=== PATIENT | male | born 1925 | race Caucasian/White ===

== ENCOUNTER 2016-12-05 17:47 | Inpatient (IN) | payer MEDICARE, OTHER ==
[~2016-12-05] VITALS: Ht 185.4 cm; Wt 81.3 kg
[~2016-12-05 17:47] MED LIST: ACET325T51 PO; ALBU2.5V2 AEROSOL; ASPI-557 PO; ATOR40TA64 PO; CALC600T20 PO; CLOP75TA33 PO; CYAN10009 PO; ESCI10TA PO; FURO20TA4 PO; INSU100V12 SQ; INSU100V13 SQ; LORA0.5T86 PO; LOSA25TA34 PO; METO100T5 PO; NUT.237L33 PO; OMEP10SU2 PO; POTA10CA37 PO; PROP10DR2 BOTH EYES; SALI10004 PO; SODI30SP3 EA NOSTRIL
--- OUTSIDE RECORDS SUMMARY | 2016-12-05 17:50 | XMS REPORT | Referral Summary ---
Author Author [facility] Organization [facility] Address Unknown Phone Unavailable Care Team Providers Care Center Rep Name Role Phone Dulce Maria Almaguer Primary Care Physician [phone] Encounter VC Date(s): 06/22/16 - 07/04/16 [facility] [address] [place] [address] Discharge Disposition: 03-Retirement Facility Attending Physician: Dewayne Anderson MD Admitting Physician: Susie Lovett MD Vital Signs Most recent to 1 oldest [Reference Range]: Temperature Oral 37.0 degC [35.8-37.3 degC] (07/04/16 11:15 AM) Temperature Rectal 37.4 degC [36.3-37.8 degC] (06/22/16 7:50 PM) Temperature Temporal 36.9 degC Artery [36.3-37.8 (07/01/16 8:00 AM) degC] Peripheral Pulse 84 bpm Rate [60-100 bpm] (07/04/16 11:15 AM) Peripheral Pulse 93 bpm Rate with Activity (07/01/16 8:42 AM) Heart Rate Monitored 76 bpm [60-100 bpm] (07/04/16 9:47 AM) Respiratory Rate 20 br/min [14-20 br/min] (07/04/16 11:15 AM) Blood Pressure 112/66 mmHg [90-140/60-90 mmHg] (07/04/16 11:15 AM) Systolic Blood 148 mmHg Pressure with (07/01/16 8:42 AM) Activity Diastolic Blood 86 mmHg Pressure with (07/01/16 8:42 AM) Activity Mean Arterial 103 mmHg Pressure, Cuff (07/01/16 10:00 AM) Pulse Rate [60-100 80 bpm bpm] (07/03/16 8:51 AM) SpO2 94 % (07/04/16 11:15 AM) Remote Telemetry Ongoing (07/04/16 8:00 AM) Problem List Condition Effective Dates Status Health Status Informant Acute Active pain(Confirmed) Alteration in Active nutrition(Confirmed) 1 At risk for Active falls(Confirmed)2 At risk for Active injury(Confirmed)3 At risk of pressure Active sore(Confirmed) Diabetes Active mellitus(Confirmed) Fluid Active imbalance(Confirmed) 4 Hearing Active loss(Confirmed) Hyperlipidemia(Confi Active rmed) Hypertension(Confirm Active ed) Impaired skin Active integrity(Confirmed) 5 Cataracts(Confirmed) Active Pneumonia(Confirmed) Active Scarlet Active fever(Confirmed) Tissue perfusion Active alteration(Confirmed )6 1Problem added automatically by system based on initiation of Alteration in Nutrition Plan of Care 2This problem was added by Discern Expert. 3Problem added automatically by system based on initiation of Risk for Injury Plan of Care 4Problem added automatically by system based on initiation of Fluid Volume Imbalance Plan of Care 5Problem added automatically by system based on initiation of Impaired Skin Integrity Plan of Care 6Problem added automatically by system based on initiation of Tissue Perfusion Cerebral Plan of Care Allergies, Adverse Reactions, Alerts No Known Medication Allergies Medications acetaminophen 325 mg oral tablet 650 mg 2 tabs, Oral, q4hr, Pain Mild (1-3), 0 Refill(s) Start Date: 07/04/16 Status: Ordered albuterol 5 mg/mL (0.5%) inhalation solution 2.5 mg 0.5 mL, NEB, BID, 0 Refill(s) Start Date: 07/04/16 Status: Ordered atorvastatin 40 mg oral tablet 40 mg 1 tabs, Oral, Bedtime (once a day), 0 Refill(s) Start Date: 07/04/16 Status: Ordered Caltrate 600+D oral tablet, chewable 1 tabs, Chewed, Daily Start Date: 03/04/16 Status: Ordered Levemir 100 units/mL subcutaneous solution 12 units, SubCutaneous, Bedtime (once a day), 0 Refill(s) Start Date: 07/04/16 Status: Ordered losartan 25 mg oral tablet 25 mg 1 tabs, Oral, Daily, 0 Refill(s) Start Date: 07/04/16 Status: Ordered metoprolol tartrate 100 mg oral tablet 100 mg 1 tabs, Oral, BID, 0 Refill(s) Start Date: 07/04/16 Status: Ordered NovoLOG 100 units/mL subcutaneous solution 5 units, SubCutaneous, TIDWM, 0 Refill(s) Start Date: 07/04/16 Status: Ordered omeprazole 2 mg/mL oral suspension 20 mg 10 mL, Oral, Daily, 0 Refill(s) Start Date: 07/04/16 Status: Ordered Plavix 75 mg oral tablet 75 mg 1 tabs, Oral, Daily, # 30 tabs, 0 Refill(s), other reason (Rx) Start Date: 07/04/16 Status: Ordered potassium chloride 20 mEq oral tablet, extended release 40 mEq, Oral, BID, 0 Refill(s) Start Date: 07/04/16 Status: Ordered Vitamin B12 1000 mcg oral tablet 1,000 mcg 1 tabs, Oral, qMonth Start Date: 03/04/16 Status: Ordered Results Blood Gases Most recent to 1 oldest [Reference Range]: pH [7.35-7.45] 7.27 *LOW* (06/22/16 11:46 PM) pCO2 Art [35-45 19 mmHg mmHg] *LLOW* (06/22/16 11:46 PM) Bicarbonate [22-26 9 mEq/L mEq/L] *LOW* (06/22/16 11:46 PM) Base Excess Art -16 [0-2] *LOW* (06/22/16 11:46 PM) O2 Sat Art 92.0 % [90.0-97.0 %] (06/22/16 11:46 PM) pO2 Art [80-100 77 mmHg mmHg] *LOW* (06/22/16 11:46 PM) LPM Art 2.0 L/min (06/22/16 11:46 PM) O2 Panel Nasal Cannula (06/22/16 11:46 PM) Spec Site Radial-R (06/22/16 11:46 PM) Hematology Most recent to 1 oldest [Reference Range]: WBC [4.8-10.8 12.7 10*3/uL 10*3/uL] *HI* (07/03/16 5:20 AM) RBC [4.60-6.20] 4.26 *LOW* (07/03/16 5:20 AM) Hgb [14.0-18.0 11.9 gm/dL gm/dL] *LOW* (07/03/16 5:20 AM) Hct [42.0-52.0 %] 38.0 % *LOW* (07/03/16 5:20 AM) MCV [82.0-99.0 fL] 89.2 fL (07/03/16 5:20 AM) MCH [27.0-32.0 pg] 27.9 pg (07/03/16 5:20 AM) MCHC [32.0-36.0 31.3 gm/dL gm/dL] *LOW* (07/03/16 5:20 AM) RDW [11.5-14.5 %] 16.6 % *HI* (07/03/16 5:20 AM) Platelet [150-400 202 10*3/uL 10*3/uL] (07/03/16 5:20 AM) MPV [9.4-12.3 fL] 11.4 fL (07/03/16 5:20 AM) Immature 0.6 % Granulocytes (06/25/16 5:25 AM) [0.0-1.0 %] Neutrophils [51-75 78 % %] *HI* (06/25/16 5:25 AM) Band Man [0-8 %] 9 % *HI* (06/23/16 3:25 AM) Lymphocytes [20-46 12 % %] *LOW* (06/25/16 5:25 AM) Monocytes [4-11 %] 9 % (06/25/16 5:25 AM) Eosinophils [0-4 %] 0 % (06/25/16 5:25 AM) Basophils [0-2 %] 0 % (06/25/16 5:25 AM) Neutro Absolute 9.54 10*3 [1.90-7.00 10*3] *HI* (06/25/16 5:25 AM) Lymph Absolute 1.48 10*3 [0.80-3.30 10*3] (06/25/16 5:25 AM) Sweet Grass Absolute 1.10 10*3 [0.30-1.00 10*3] *HI* (06/25/16 5:25 AM) Eos Absolute 0.02 10*3 [0.00-0.50 10*3] (06/25/16 5:25 AM) Baso Absolute 0.01 10*3 [0.00-0.20 10*3] (06/25/16 5:25 AM) Toxic Gran Occasional *ABN* (06/23/16 3:25 AM) Toño Cell Occasional *ABN* (06/22/16 8:10 PM) Nucleated RBC 0.0 /100 WBC Automated [0 /100 (06/25/16 5:25 AM) WBC] Differential Reviewed (06/23/16 3:25 AM) Coagulation Most recent to 1 oldest [Reference Range]: INR [0.9-1.2] 1.0 (06/25/16 8:09 AM) PTT [25.0-35.0 24.7 seconds seconds] *LOW* (06/27/16 3:19 AM) Chemistry Most recent to 1 oldest [Reference Range]: Sodium Lvl [136-144 138 mEq/L mEq/L] (07/03/16 5:20 AM) Potassium Lvl 4.3 mEq/L [3.6-5.1 mEq/L] (07/03/16 5:20 AM) Chloride [99-109 108 mEq/L mEq/L] (07/03/16 5:20 AM) CO2 [22-32 mEq/L] 26 mEq/L (07/03/16 5:20 AM) AGAP [3-20] 4 (07/03/16 5:20 AM) BUN [4-20 mg/dL] 14 mg/dL (07/03/16 5:20 AM) Glucose Lvl [70-100 152 mg/dL mg/dL] *HI* (07/03/16 5:20 AM) Creatinine Lvl 0.94 mg/dL [0.64-1.27 mg/dL] (07/03/16 5:20 AM) eGFR [>60] >60 1 (07/03/16 5:20 AM) Calcium Lvl 8.0 mg/dL [8.6-10.0 mg/dL] *LOW* (07/03/16 5:20 AM) Albumin Lvl [3.5-4.8 2.2 gm/dL gm/dL] *LOW* (07/01/16 3:39 AM) Total Protein 5.1 gm/dL [6.1-7.9 gm/dL] *LOW* (06/23/16 3:25 AM) Globulin [1.9-4.3 2.3 gm/dL gm/dL] (06/23/16 3:25 AM) ALT [17-63 U/L] 20 U/L (06/23/16 3:25 AM) AST [15-41 U/L] 80 U/L *HI* (06/23/16 3:25 AM) Alk Phos [26-104 42 U/L U/L] (06/23/16 3:25 AM) Bili Total [0.2-1.2 1.4 mg/dL 2 mg/dL] *HI* (06/23/16 3:25 AM) Magnesium Lvl 1.9 mg/dL [1.8-2.5 mg/dL] (07/01/16 3:39 AM) Phosphorus [2.4-4.7 3.0 mg/dL 3 mg/dL] (07/01/16 3:39 AM) Total CK [49-397 291 U/L U/L] (06/22/16 8:10 PM) BNP [0-99 pg/mL] 509 pg/mL *HI* (06/28/16 4:19 AM) Troponin [<0.06 1.21 ng/mL 4 ng/mL] *HHI* (06/28/16 4:19 AM) Lactic Acid Lvl 1.4 mEq/L [0.5-2.2 mEq/L] (06/25/16 5:25 AM) Sodium Venous 135 mEq/L [136-144 mEq/L] *LOW* (06/22/16 8:04 PM) Potassium Venous 5.4 mEq/L 5 [3.6-5.1 mEq/L] *HI* (06/22/16 8:04 PM) Calcium Ionized 1.10 mmol/L Venous [1.19-1.41 *LOW* mmol/L] (06/22/16 8:04 PM) Total CO2 Venous 9 mEq/L [25-29 mEq/L] *LOW* (06/22/16 8:04 PM) HGB Venous NPT 13.3 gm/dL [14.0-16.0 gm/dL] *LOW* (06/22/16 8:04 PM) HCT Venous 39.0 % [42.0-52.0 %] *LOW* (06/22/16 8:04 PM) Glucose Venous >700 mg/dL [70-100 mg/dL] *HHI* (06/22/16 8:04 PM) BUN Venous [4-20] 35 *HI* (06/22/16 8:04 PM) Creatinine Venous 1.4 mg/dL [0.7-1.2 mg/dL] *HI* (06/22/16 8:04 PM) Venous CL [99-109 104 mEq/L mEq/L] (06/22/16 8:04 PM) Anion Gap, Hugo 22 [3-20] *HI* (06/22/16 8:04 PM) Blood Glucose, 151 mg/dL Capillary [70-100 *HI* mg/dL] (07/04/16 11:09 AM) Blood Glucose, Low Capillary Out of (07/01/16 5:07 AM) Range Chol [0-200 mg/dL] 136 mg/dL (06/23/16 3:25 AM) Trig [0-150 mg/dL] 75 mg/dL (06/23/16 3:25 AM) HDL [>40 mg/dL] 35 mg/dL *ABN* (06/23/16 3:25 AM) LDL [0-100 mg/dL] 86 mg/dL (06/23/16 3:25 AM) VLDL Cholesterol 15 mg/dL [0-30 mg/dL] (06/23/16 3:25 AM) Cardiac Risk 3.9 [0.0-5.7] (06/23/16 3:25 AM) Procalcitonin 5.35 ng/mL 6 [0.00-0.09 ng/mL] *HI* (06/23/16 12:27 AM) 1Result Comment: Multiply eGFR results by 1.21 for race. 2Result Comment: Naproxen, specifically the metabolite O-desmethylnaproxen, may cause spurious elevation in Total Bilirubin levels. 3Result Comment: High dosages of liposomal Amphotericin B (AmBisome) therapy or other drug preparations that use a liposomal envelope to facilitate drug delivery may cause falsely elevated results for phosphorus. 4Result Comment: Critical value called, and read-back verified. Called to Leigha Bermeo RN ([facility]) 06/28/2016 08:20 5Result Comment: This test was performed on a whole blood specimen. The presence or absence of hemolysis cannot be assessed. Hemolysis can falsely elevate potassium levels. Normals are for venous specimens only. 6Result Comment: Normal: <0.1 ng/mL (infants >72 hrs - adults) Suspected Lower Respiratory Tract Infection 0.10-0.25 ng/mL=Low likelihood for bacterial infection; Antibiotics discouraged. >0.25 ng/mL=Increased likelihood for bacterial infection; Antibiotics encouraged. Suspected Sepsis: Strongly consider initiating antibiotics in all unstable patients. 0.10-0.50 ng/mL=Low likelihood for sepsis; Antibiotics discouraged. >0.50 ng/mL=Increased likelihood for sepsis; Antibiotics encouraged. Decisions on antibiotic use should not be based solely on procalcitonin levels. If antibiotics are administered, repeat procalcitonin testing should be obtained every 2-3 days to consider early antibiotic cessation. PCT is a dynamic biomarker and most useful when trends are analyzed over time in accompaniment with other clinical data. Interpretation should be based upon clinical context and algorithms. Urinalysis Most recent to 1 oldest [Reference Range]: UA Color Straw (06/22/16 8:10 PM) UA Appear Clear (06/22/16 8:10 PM) UA pH [5.0-8.0] 5.0 (06/22/16 8:10 PM) UA Leuk Est Negative [Negative] (06/22/16 8:10 PM) UA Nitrite Negative [Negative] (06/22/16 8:10 PM) UA Protein Negative [Negative] (06/22/16 8:10 PM) UA Glucose Pos 3+ [Negative] *ABN* (06/22/16 8:10 PM) UA Ketones Pos 2+ [Negative] *ABN* (06/22/16 8:10 PM) UA Urobilinogen Negative [<1.0] (06/22/16 8:10 PM) UA Bili [Negative] Negative (06/22/16 8:10 PM) UA Blood [Negative] Negative (06/22/16 8:10 PM) UA Spec Grav 1.020 [1.003-1.030] (06/22/16 8:10 PM) Type Clean Catch (06/22/16 8:10 PM) Microbiology Reports TEST: Respiratory Virus Panel - PCR STATUS: Auth (Verified) BODY SITE: SOURCE: Nasopharyngeal Swab COLLECTED DATE/TIME: 06/22/16 11:21 PM Respiratory Virus Panel - PCR Negative for all strains tested. . Specimen tested for the following FDA approved viral targets: Influenza A, Influenza A subtype H1, Influenza A subtype H3, Influenza A 2009 H1N1, Influenza B, Respiratory Syncytial Virus subtype A, Respiratory Syncytial Virus subtype B, Adenovirus B/E, Adenovirus C, Rhinovirus, Parainfluenza virus 1, Parainfluenza virus 2, Parainfluenza virus 3, and Human Metapneumovirus. . The following viral targets were also tested. Although not FDA approved, these targets have been validated by our laboratory for clinical diagnosis: Parainfluenza virus 4, Coronavirus 229E, Coronavirus NL63, Coronavirus HKU1, and Coronavirus OC43. TEST: Blood Culture STATUS: Auth (Verified) BODY SITE: SOURCE: Blood COLLECTED DATE/TIME: 06/22/16 8:10 PM Blood Culture No growth after 5 days of incubation. TEST: Blood Culture STATUS: Auth (Verified) BODY SITE: SOURCE: Blood COLLECTED DATE/TIME: 06/22/16 8:10 PM Blood Culture No growth after 5 days of incubation. Immunizations No data available for this section Procedures Procedure Date Related Diagnosis Body Site Catheterization Left Heart with Coronary 06/30/16 Angiography (Right, Groin)1 Insertion of peripherally inserted central 06/23/16 venous catheter (PICC), without subcutaneous port or pump; age 5 years or older.. Arterial puncture, withdrawal of blood for 06/22/16 diagnosis Brain Surgery Cataract, left Cataract, right Hernia Prostate Surgery Tonsillectomy 1auto-populated from documented surgical case Social History Social History Type Response Smoking Status Former smoker; Type: Cigarettes Assessment and Plan No data available for this section
--- OUTSIDE RECORDS SUMMARY | 2016-12-05 17:50 | XMS REPORT | Continuity of Care Document ---
Author Author [facility] Organization [facility] Address Unknown Phone Unavailable Allergies Medications Problems Procedures Results Encounters ACCT No. Visit Date/Time Discharge Status Pt. Type Provider Facility Loc./Unit Complaint [id number] 08/03/2013 13:41:00 08/03/2013 23 :59:59 CLS Outpatient
--- OUTSIDE RECORDS SUMMARY | 2016-12-05 17:51 | XMS REPORT | Continuity of Care Document ---
Author Author [facility] Organization [facility] Address Unknown Phone Unavailable Support Name Relationship Address Phone JACQUI KOTHARI DO Caregiver [address] [place] [address] Unavailable ANGELA GALLARDO MD Caregiver [address] [place] [address] Unavailable JACKSON CUMMINGS DO Caregiver [address] [place] [address] Unavailable JACKSON CUMMINGS DO Caregiver [address] [place] [address] Unavailable RHEA FELIZ Next Of Kin [address] [place], [place] [id number] Insurance Providers Guarantor Ronald Rollins Address [address] [place] [address] Email DENIED 16 Payer Medicare Policy Number [id number] Subscriber's Name Ronald Rollins Relationship 18 Self Payer [facility] Policy Number [id number] Subscriber's Name Ronald Rollins Relationship 18 Self Group Number [id number] Advance Directives Directive Response Recorded Date/Time Advanced Directives Type DNR Documentation Living Will DPOA for Healthcare 09/21/16 10:33am Ordered Resuscitation Status Full Code 09/21/16 12:41pm Resuscitation Documents on File Yes 09/21/16 1:44pm DPOA for Healthcare Only Y SON-NAVIN RIA/DAUGHTERS-LYNSEY MAYNARD AND RHEA FELIZ 09/21/16 1:44pm Chief Complaint and Reason for Visit Chief Complaint HYPOXEMIA Reason for Visit Congestive heart failure Depression Hypernatremia Hypoxia memory loss Hypoglycemia LLL pneumonia Problems Active Problems Medical Problem Onset Date Status ASCVD (arteriosclerotic cardiovascular disease) Unknown Chronic Acute L1 fracture Unknown Acute Acute respiratory insufficiency Unknown Resolved Bilateral pleural effusion Unknown Acute Cardiac murmur Unknown Acute Cardiac murmur, previously undiagnosed Unknown Acute Congestive heart failure Unknown Acute Constipation Unknown Resolved Depressed Unknown Acute Depression Unknown Chronic Diabetic gastroparesis Unknown Chronic HTN (hypertension) Unknown Chronic Hypernatremia Unknown Chronic Hypoxia Unknown Resolved Inability to care for self Unknown Acute Intractable back pain Unknown Acute Osteoarthritis Unknown Chronic Pneumonia Unknown Acute Sepsis Unknown Acute Suspected pulmonary embolism Unknown Acute Tachycardia Unknown Acute Type II diabetes mellitus Unknown Chronic Type II diabetes mellitus, uncontrolled Unknown Acute memory loss Unknown Acute mild dehydration Unknown Acute Past Problems Medical Problem Onset Date Acute anterior epistaxis Unknown Hypoglycemia Unknown LLL pneumonia Unknown Medications Current Home Medications Medication Dose Units Route Directions Days Qty Instructions Start Date Acetaminophen 325 Mg Tablet 650 Mg Oral Every 4 Hours as needed for Pain 09/21/16 Albuterol Sulfate 2.5 Mg/0.5 Ml Vial.neb 2.5 Mg Aerosol Tx. Resp.tx Q4h While Awake 100 Vial 09/11/16 Aspirin (Aspir 81) 81 Mg Tablet.dr 81 Mg Oral Daily 08/25/16 Atorvastatin Calcium 40 Mg Tablet 40 Mg Oral Bedtime 08/25/16 Calcium Carbonate 600 Mg Tablet 600 Mg Oral Daily 08/25/16 Clopidogrel Bisulfate (Clopidogrel) 75 Mg Tablet 75 Mg Oral Daily 08/25/16 Cyanocobalamin (Vitamin B-12) (Vitamin B-12) 1,000 Mcg Tablet 1,000 Mcg Oral 1 Month 09/10/16 Escitalopram Oxalate (Lexapro) 10 Mg Tablet 10 Mg Oral Daily 10/15 Furosemide 20 Mg Tablet 1 Tab Oral Daily 30 Days 30 Tablet 09/25/16 Insulin Aspart (Novolog) 100 Unit/Ml Inj 11 Unit Sub-Q Give With Lunch 09/21/16 Insulin Aspart (Novolog) 100 Unit/Ml Inj 10 Unit Sub-Q Give With Supper 09/21/16 Insulin Aspart (Novolog) 100 Unit/Ml Inj 22 Unit Sub-Q Give With Breakfast 09/21/16 Insulin Detemir (Levemir) 100 Unit/Ml Inj 13 Unit Sub-Q Bedtime 09/21/16 Lorazepam (Ativan) 0.5 Mg Tablet 0.5 Mg Oral Every 6 Hours as needed for Anxiety/Agitation 09/21/16 Losartan Potassium 25 Mg Tablet 25 Mg Oral Daily 09/10/16 Metoprolol Tartrate 100 Mg Tablet 100 Mg Oral Twice A Day Nut.tx.gluc.intoler,Lac-Fr,Soy (Glucerna) 237 Ml Liquid 237 Ml Oral Twice A Day 09/21/16 Omeprazole Magnesium (Prilosec) 10 Mg Suspdr.pkt 20 Mg Oral Daily 09/21/16 Potassium Chloride 10 Meq Capsule.er 10 Meq Oral Give With Breakfast 30 Days 30 Capsule Take 1 capsule, by mouth, daily with breakfast 09/25/16 Propylene Glycol/Peg 400 (Systane Ultra 0.4-0.3% Eye Drp) 10 Ml Drops 1 Drop Both Eyes Twice A Day 09/21/16 Propylene Glycol/Peg 400 (Systane Ultra 0.4-0.3% Eye Drp) 10 Ml Drops 1 Drop Both Eyes As Needed as needed for Dry Eyes 09/21/16 Saliva Substitution Combo No.9 (Biotene) 1,000 Ml Mouthwash 15 Ml Oral Twice A Day 09/21/16 Sodium Chloride (Saline Nasal [place]) 30 Ml [place] 1-2 [place] Each Nostril Twice A Day 09/21/16 Sodium Chloride (Saline Nasal [place]) 30 Ml [place] 1-2 [place] Each Nostril As Needed 09/21/16 Past Home Medications Medication Directions Ordered Status Acetaminophen/Dp-Hydram Hcl (Tylenol P.m. Ex-Str Caplet) 1 Tab Tablet, 1 Tab Oral Bedtime 11/09/12 Discontinued Advil , 200 Mg Oral As Needed 11/08/12 Discontinued Felodipine (Felodipine Er) 10 Mg Tab.sr.24h, 10 Mg Oral D 11/09/12 Discontinued Felodipine , 11/08/12 Discontinued Fexofenadine , 11/08/12 Discontinued Fexofenadine Hcl 180 Mg Tablet, 180 Mg Oral Daily 11/09/12 Discontinued Flonase , 11/08/12 Discontinued Fluticasone Propionate (Flonase) 16 Gm [place].susp, 16 Gm Nasal Daily Discontinued Hydrochlorothiazide , 11/08/12 Discontinued Ipratropium/Albuterol Sulfate (Iprat-Albut 0.5-3(2.5) Mg/3 Ml) 3 Ml Solution, 3 Ml Aerosol Tx. Four Times Daily for Wheeze 01/04/15 Discontinued Kdur , 11/08/12 Discontinued Levofloxacin (Levaquin) 500 Mg Tablet, 500 Mg Oral Daily 01/04/15 Discontinued Losartan , 11/08/12 Discontinued Losartan Potassium 100 Mg Tablet, 100 Mg Oral Daily 11/09/12 Discontinued Metoprolol Tartrate , 11/08/12 Discontinued Novolog , 130 Unit Every 3 Days [facility] 11/08/12 Discontinued Potassium Chloride 20 Meq Tab.er.prt, 40 Mg Oral Twice A Day 09/21/16 Discontinued Reclast , 11/08/12 Discontinued Sennosides (Senna) 8.6 Mg Tablet, 8.6 Mg Oral Twice A Day as needed for Constipation 12/30/14 Discontinued Simvastatin 20 Mg Tablet, 20 Mg Oral Daily 11/09/12 Discontinued Simvastatin , 11/08/12 Discontinued Sinex , 11/08/12 Discontinued Tylenol Pm , 11/08/12 Discontinued Vitamin B-12 , 11/08/12 Discontinued Zocor , 11/08/12 Discontinued Social History Social History Problem Response Recorded Date/Time Onset Date Status Reason for Hospitalization hypoxemia 09/25/2016 2:15pm Not Applicable Not Applicable Chewing Tobacco Status No 08/30/2013 4:10pm Not Applicable Not Applicable Hx Substance Use No 09/21/2016 10:44am Not Applicable Not Applicable Hx Alcohol Use No 09/21/2016 10:44am Not Applicable Not Applicable Has the pt used tobacco in the last 12 months No 09/21/2016 2:15pm Not Applicable Not Applicable Tobacco Usage none 12/30/2014 4:41pm Not Applicable Not Applicable Query Response Start Date Stop Date Smoking Status Former smoker Hospital Discharge Instructions Instructions: Care Instructions: Reason for Hospitalization: hypoxemia I was in the hospital because (patient own words): "they said I had pneumonia" Discharge Diet: Diabetic appropriate Discharge Activity: as tolerated Follow Up Appointments: 10-14 days at [facility] with Rosina Rogers Pending Lab / Results: No Pending Lab Wound/Incision Care: N/A Pain Management/Treatment: N/A Expected Signs/Symptoms: shortness of breath Notify Physician If: condition worsens During Business Hours:: Please call the physician's office at [phone] After Business Hours:: Please call [phone] and have the pusher operator page the physician. Condition at time of discharge: Good Plan of Care Discharge Date 09/25/16 2:52pm Disposition 03 TO SN[facility] NOT [facility] (SNF) Instructions/Education Provided Hypoxemia (GEN) Prescriptions See Medication Section Care Plan and Goals See Discharge Instructions Section Functional Status Query Response Date Recorded Mobility Status Ambulatory w/assist September 25, 2016 2:15pm Assistive Devices Front Wheeled Walker September 25, 2016 2:15pm Activity Limitations Weakness Shortness of breath September 25, 2016 2:15pm Feeding Ability Independent September 25, 2016 2:15pm Toileting Ability Assist September 25, 2016 2:15pm Grooming Ability Assist September 25, 2016 2:15pm Dressing Ability Assist September 25, 2016 2:15pm Driving Ability Dependent September 25, 2016 2:15pm Housework Ability Dependent September 25, 2016 2:15pm Meal Preparation Ability Dependent September 25, 2016 2:15pm Stair Climbing Ability Dependent September 25, 2016 2:15pm Ability to complete ADL's impeded by No change September 25, 2016 2:15pm Cognitive/Perceptual Impairments Impaired hearing Chronic confusion September 25, 2016 2:15pm Visual Assistive Devices Glasses September 24, 2016 10:00pm Hearing Assistive Devices Left hearing aid Right hearing aid With patient September 24, 2016 10:00pm Allergies, Adverse Reactions, Alerts Allergen Type Severity Reaction Status Last Updated No Known Drug Allergies Allergy Unknown Active 09/21/16 Immunizations Query Response on File Recorded Date/Time Hx Influenza Vaccination Y 07/08/16 09/21/16 2:15pm Hx Pneumococcal Vaccination Y 07/08/16 09/21/16 2:15pm Hx Influenza Vaccination Y 07/08/16 09/21/16 2:15pm Influenza Vaccine Hx 07/08/16 09/21/16 7:49pm Vital Signs Acute Vital Signs Vital Response Date/Time Temperature (Fahrenheit) 98.1 deg F (96.8 - 99.1) 09/25/2016 11:36am Temperature (Calculated Celsius) 36.52929 degrees C (36.0 - 37.3) 09/25/2016 11:36am Pulse Rate (adult) 91 bpm (60 - 100) 09/25/2016 11:36am Respiratory Rate 20 breaths/min (10 - 20) 09/25/2016 11:36am O2 Sat by Pulse Oximetry 96 % (90 - 100) 09/25/2016 11:36am Oxygen Delivery Method Nasal Cannula 09/24/2016 5:22pm Oxygen Delivery Method Room Air 09/25/2016 11:36am Oxygen Flow Rate 0.50 L/min 09/25/2016 11:36am Blood Pressure 140/76 mm Hg 09/25/2016 11:36am Blood Pressure Source Automatic Cuff 09/25/2016 11:36am Height (Feet) 6 feet 09/24/2016 6:03pm Height (Inches) 1.00 inches 09/24/2016 6:03pm Weight (Kilograms) 78.000 kg 09/25/2016 7:50am Body Mass Index (BMI) 24.9 09/21/2016 1:41pm Results Laboratory Results Test Name Result Units Flags Reference Collection Date/Time Result Date/ Time Comments Urine Collection Type VOIDED-NOT CC-MIDSTR 07/07/2016 6:30pm 2015 8:50pm Urine Color YELLOW YELLOW 07/07/2016 6:30pm 07/07/2016 8:50pm Urine Turbidity SL CLOUDY CLEAR 07/07/2016 6:30pm 07/07/2016 8:50pm Urine Specific [place] >=1.030 H 1.015-1.025 07/07/2016 6:30pm 2015 8:50pm Urine pH 6.0 5.0-8.0 07/07/2016 6:30pm 07/07/2016 8:50pm Urine Leukocyte Esterase TRACE A NEGATIVE 07/07/2016 6:30pm 2015 8:50pm Urine Nitrite NEGATIVE NEGATIVE 07/07/2016 6:30pm 07/07/2016 8:50pm Urine Protein 1+ A NEGATIVE 07/07/2016 6:30pm 07/07/2016 8:50pm Urine Glucose (UA) 2+ A NEGATIVE 07/07/2016 6:30pm 07/07/2016 8:50pm Urine Ketones 1+ A NEGATIVE 07/07/2016 6:30pm 07/07/2016 8:50pm Urine Urobilinogen 0.2 EU/DL NORMAL 07/07/2016 6:30pm 07/07/2016 8: 50pm Urine Bilirubin NEGATIVE NEGATIVE 07/07/2016 6:30pm 07/07/2016 8: 50pm Urine Blood 2+ A NEGATIVE 07/07/2016 6:30pm 07/07/2016 8:50pm Urine WBC 10-20 /HPF H 0-5 07/07/2016 6:30pm 07/07/2016 9:08pm Urine RBC 3-5 /HPF H 0-3 07/07/2016 6:30pm 07/07/2016 9:08pm Urine Squamous Epithelial Cells 5-10 07/07/2016 6:30pm 07/07/2016 9 :08pm Urine Bacteria TRACE H NEGATIVE 07/07/2016 6:30pm 07/07/2016 9:08pm Urine Mucus PRESENT 07/07/2016 6:30pm 07/07/2016 9:08pm Urine Culture Indicated CULT NOT INDICATED 07/07/2016 6:30pm 2015 9:08pm Influenza Type A Antigen NEGATIVE NEGATIVE 09/10/2016 11:42pm 2016 12:08am Negative for Flu A protein antigen. Assay sensitivity is 90%. Influenza Type B Antigen NEGATIVE NEGATIVE 09/10/2016 11:42pm 2016 12:08am Negative for Flu B protein antigen. Assay sensitivity is 90%. White Blood Count 6.9 T/MM3 4.5-11.0 09/25/2016 4:08am 09/25/2016 5: 16am Red Blood Count 3.39 M/MM3 L 4.50-5.90 09/25/2016 4:08am 09/25/2016 5: 16am Hemoglobin 8.9 GM/DL L 13.5-17.5 09/25/2016 4:08am 09/25/2016 5:16am Hematocrit 29.0 % L 41-53 09/25/2016 4:08am 09/25/2016 5:16am Mean Corpuscular Volume 85.5 UM3 80-100 09/25/2016 4:08am 09/25/2016 5: 16am Mean Corpuscular Hemoglobin 26.3 UUG 26-34 09/25/2016 4:08am 2016 5:16am Mean Corpuscular Hemoglobin Concent 30.7 GM/DL L 31-37 09/25/2016 4:08am 09/25/2016 5:16am RDW Standard Deviation 43.7 FL 36.9-50.2 09/25/2016 4:08am 09/25/2016 5 :16am Platelet Count 203 T/MM3 130-400 09/25/2016 4:08am 09/25/2016 5:16am Mean Platelet Volume 10.0 UM3 9.4-12.4 09/25/2016 4:08am 09/25/2016 5: 16am Neutrophils (%) (Auto) 53.0 % 33-66 09/25/2016 4:08am 09/25/2016 5: 16am Lymphocytes (%) (Auto) 27.4 % 23-45 09/25/2016 4:0809/25/2016 5: 16am Monocytes (%) (Auto) 13.8 % H 0-9.0 09/25/2016 4:08am 09/25/2016 5:16am Eosinophils (%) (Auto) 4.4 % H 0-4 09/25/2016 4:08am 09/25/2016 5:16am Basophils (%) (Auto) 1.0 % 0-2 09/25/2016 4:09/25/2016 5:16am Immature Granulocyte % (Auto) 0.4 % 0.0-0.5 09/25/2016 4:082016 5:16am Absolute Neutrophils (auto) 3.6 T/MM3 1.8-7.7 09/25/2016 4:2016 5:16am Absolute Lymphocytes (auto) 1.9 T/MM3 1-4.8 09/25/2016 4:2016 5:16am Absolute Monocytes (auto) 1.0 T/MM3 H 0-0.8 09/25/2016 4:2016 5:16am Absolute Eosinophils (auto) 0.3 T/MM3 0-0.5 09/25/2016 4:082016 5:16am Absolute Basophils (auto) 0.1 T/MM3 0-0.2 09/25/2016 4:0809/25/2016 5:16am Absolute Immature Granulocyte (auto 0.03 T/MM3 0.00-0.03 09/25/2016 4: 0809/25/2016 5:16am Neutrophils % (Manual) 67.0 % H 33-66 09/24/2016 7:10am 09/24/2016 9: 11am Band Neutrophils % 3.0 % 0-6 09/24/2016 7:10am 09/24/2016 9:11am Lymphocytes % (Manual) 28.0 % 23-45 09/24/2016 7:10am 09/24/2016 9: 11am Monocytes % (Manual) 2.0 % 0-9.0 09/24/2016 7:10am 09/24/2016 9:11am Eosinophils % (Manual) 1.0 % 0-4 09/23/2016 4:03am 09/23/2016 7:20am Band Neutrophils # 0.3 T/MM3 09/24/2016 7:10am 09/24/2016 9:11am Absolute Neutrophils (Manual) 6.2 T/MM3 1.8-7.7 09/24/2016 7:10am 09/24 9:11am Lymphocytes # (Manual) 2.6 T/MM3 1-4.8 09/24/2016 7:10am 09/24/2016 9: 11am Monocytes # (Manual) 0.2 T/MM3 0-0.8 09/24/2016 7:10am 09/24/2016 9: 11am Eosinophils # (Manual) 0.1 T/MM3 0-0.5 09/23/2016 4:03am 09/23/2016 7: 20am Red Cell Morphology Comment ABNORMAL 09/24/2016 7:10am 09/24/2016 9 :11am Poikilocytosis 1+ 09/24/2016 7:10am 09/24/2016 9:11am D-Dimer 463 NG/ML H 0-230 09/21/2016 10:57am 09/21/2016 11:09am <230 NG /ML D-DU=PRESUMPTIVE NEGATIVE FOR PE OR DVT >230 NG/ML D-DU=ADDITIONAL EVAL FOR PE OR DVT RECOMMENDED Icterus Index < 2 0-7 09/25/2016 4:07am 09/25/2016 5:24am Chemistry Specimen Hemolysis < 15 0-25 09/25/2016 4:07am 09/25/2016 5 :24am 0-25: Specimen Exhibited No Hemolysis. Turbidity < 20 0-20 09/25/2016 4:07am 09/25/2016 5:24am Sodium Level 140 MEQ/L 134-144 09/25/2016 4:07am 09/25/2016 5:24am Potassium Level 4.0 MEQ/L D 3.6-5 09/25/2016 4:07am 09/25/2016 5:33am Chloride Level 103 MEQ/L D 98-107 09/25/2016 4:07am 09/25/2016 5:33am Carbon Dioxide Level 32 MEQ/L H 22-30 09/25/2016 4:07am 09/25/2016 5: 24am Anion Gap 5 MEQ/L 5-15 09/25/2016 4:0709/25/2016 5:24am Blood Urea Nitrogen 22.0 MG/DL D H 9-20 09/25/2016 4:09/25/2016 5: 33am Creatinine 1.0 MG/DL 0.8-1.5 09/25/2016 4:09/25/2016 5:24am BUN/Creatinine Ratio 22 RATIO 6-26 09/25/2016 4:09/25/2016 5:24am Glomerular Filtration Rate Calc 70 09/25/2016 4:09/25/2016 5: 24am Glucose Level 174 MG/DL H 75-110 09/25/2016 4:09/25/2016 5:24am Calculated Osmolality 276 MOSM/KG 261-280 09/25/2016 4:09/25/2016 5:24am Calcium Level 8.7 MG/DL 8.4-10.2 09/25/2016 4:09/25/2016 5:24am Phosphorus Level 3.7 MG/DL 2.5-4.5 09/25/2016 4:09/25/2016 6:20am Total Bilirubin 0.90 MG/DL 0.20-1.30 09/23/2016 4:09/23/2016 5: 57am Alkaline Phosphatase 91 U/L 38-126 09/23/2016 4:09/23/2016 5:57am Total Protein 5.7 G/DL L 6.3-8.2 09/23/2016 4:09/23/2016 5:57am Albumin 2.9 G/DL L 3.5-5.0 09/25/2016 4:09/25/2016 5:24am Globulin 2.6 G/DL 2.4-3.6 09/23/2016 4:09/23/2016 5:57am Albumin/Globulin Ratio 1.2 RATIO 1.1-2.2 09/23/2016 4:09/23/2016 5 :57am Aspartate Amino Transf (AST/SGOT) 32 U/L D 17-59 09/23/2016 4:2016 6:18am Alanine Aminotransferase (ALT/SGPT) 24 U/L 21-72 09/23/2016 4: 5:57am Troponin I 0.031 ng/ml D 0-0.12 09/22/2016 6:02am 09/22/2016 7:10am Troponin values with a difference of 55% increase from orginal troponin value represent a true biological DELTA value. (%increase Calc=Orginal Troponin value, divided by subsequent Troponin value, multiplied by 100) HG-Gig-U-Type Natriuretic Peptide 674 PG/ML H 0-175 09/25/2016 4:07am 5:31am Rule in cut points: <50 years old=450; 50-75 years old=900; >75 years old=1800; When utilizing ProBNP rule-in cut points, adjustment for impaired renal function is typically not required. Magnesium Level 1.7 MG/DL 1.6-2.3 09/24/2016 7:10am 09/24/2016 7:55am Plasma Lactate 1.4 MMOL/L 0.6-2.2 09/23/2016 4:03am 09/23/2016 5:52am Procalcitonin < 0.05 NG/ML 09/23/2016 4:03am 09/23/2016 7:01am PCT < /=0.5 ng/mL - sepsis not likely; PCT >0.5 and </=2 ng/mL - sepsis possible; PCT >2 ng/mL - sepsis likely; PCT >/=10 ng/mL - systemic inflammatory response - sepsis or septic shock highly indicated. Vancomycin Level Trough 24.36 UG/ML *H 15-20 09/24/2016 7:10am 2016 8:22am Glucometer 167 mg/dL H 75-110 09/25/2016 2:01pm 09/25/2016 2:03pm Microbiology Results Procedure Source Organism/Result Collection Date/Time Result Date/Time Result Status Urine Culture Urine, Voided-Not Cc-Midstream MIXED ARUNA 07/07/2016 6:30pm 07/10/2016 8:44am Final Blood Culture Peripheral/Iv Start NO GROWTH AFTER 4 DAYS 09/21/2016 10: 57am 09/25/2016 11:00am Preliminary Name: RONALD ROLLINS Unit #: [id number] : 1925 Sex: M DISCHARGE SUMMARY Admit Date: 09/21/16 Report #: [id number] [facility] Discharge Diagnoses Discharge Diagnoses (1) Congestive heart failure (2) Cardiac murmur, previously undiagnosed Comments: Harsh systolic murmur heard best at the apex (3) Bilateral pleural effusion (4) HTN (hypertension) (5) Type II diabetes mellitus (6) Acute respiratory insufficiency (7) Hypoxia Hospital Course Ronald Rollins is a very pleasant 89-year-old white gentleman who was admitted for shortness of breath with hypoxia. Initial chest x-ray demonstrates bilateral pleural effusion. D-dimer positive. He has a new harsh 3/6 systolic murmur heard best at the apex. I will order echocardiogram, CTA to rule out pulmonary embolism, and check BNP. He has antibiotics infusing this should continue until further information elucidates the cause of his hypoxia. 09/23/16: Mr. Rollins appears much improved over yesterday. He has diuresed over 6 L off. He has a new harsh murmur with echocardiogram report pending. I will leave his antibiotics in place until his new murmur has been diagnosed. 09/24/16: Mr. Rollins continues to improve. He no longer has cough and his breathing is not labored. He has diuresed very well. His blood sugars were elevated last night and his potassium is low today. I will continue to supplement his potassium and recheck his labs in the morning. Should he continue to improve I will consider discharge tomorrow. Home Meds Active Scripts Potassium Chloride (Potassium Chloride) 10 Meq Capsule.er, 10 MEQ PO WB for 30 Days, #30 CAP 11 Refills Take 1 capsule, by mouth, daily with breakfast Prov:JACKSON CUMMINGS DO 09/25/16 Furosemide (Furosemide) 20 Mg Tablet, 1 TAB PO DAILY for 30 Days, #30 TAB 11 Refills Prov:JACKSON CUMMINGS DO 09/25/16 Albuterol Sulfate (Albuterol Sulfate) 2.5 Mg/0.5 Ml Vial.neb, 2.5 MG AEROSOL RTQ4WA, #100 VIAL Prov:JACKSON DONAHUE MD 09/11/16 Reported Medications Sodium Chloride (Saline Nasal [place]) 30 Ml [place], 1-2 SPRAY EA NOSTRIL PRN 09/21/16 Lorazepam (Ativan) 0.5 Mg Tablet, 0.5 MG PO Q6H Y for ANXIETY/AGITATION 09/21/16 Propylene Glycol/Peg 400 (Systane Ultra 0.4-0.3% Eye Drp) 10 Ml Drops, 1 DROP BOTH EYES PRN Y for DRY EYES 09/21/16 Acetaminophen (Acetaminophen) 325 Mg Tablet, 650 MG PO Q4H Y for PAIN 09/21/16 Sodium Chloride (Saline Nasal [place]) 30 Ml [place], 1-2 SPRAY EA NOSTRIL BID 09/21/16 Propylene Glycol/Peg 400 (Systane Ultra 0.4-0.3% Eye Drp) 10 Ml Drops, 1 DROP BOTH EYES BID 09/21/16 Saliva Substitution Combo No.9 (Biotene) 1,000 Ml Mouthwash, 15 ML PO BID 09/21/16 Nut.tx.gluc.intoler,Lac-Fr,Soy (Glucerna) 237 Ml Liquid, 237 ML PO BID 09/21/16 Metoprolol Tartrate (Metoprolol Tartrate) 100 Mg Tablet, 100 MG PO BID 09/21/16 Omeprazole Magnesium (Prilosec) 10 Mg Suspdr.pkt, 20 MG PO DAILY 09/21/16 Insulin Detemir (Levemir) 100 Unit/Ml Inj, 13 UNIT SQ HS 09/21/16 Insulin Aspart (Novolog) 100 Unit/Ml Inj, 22 UNIT SQ WB 09/21/16 Insulin Aspart (Novolog) 100 Unit/Ml Inj, 10 UNIT SQ WS 09/21/16 Insulin Aspart (Novolog) 100 Unit/Ml Inj, 11 UNIT SQ WL 09/21/16 Cyanocobalamin (Vitamin B-12) (Vitamin B-12) 1,000 Mcg Tablet, 1000 MCG PO 1 MONTH 09/10/16 Losartan Potassium (Losartan Potassium) 25 Mg Tablet, 25 MG PO DAILY 09/10/16 Aspirin (Aspir 81) 81 Mg Tablet.dr, 81 MG PO DAILY 08/25/16 Calcium Carbonate (Calcium Carbonate) 600 Mg Tablet, 600 MG PO DAILY 08/25/16 Atorvastatin Calcium (Atorvastatin Calcium) 40 Mg Tablet, 40 MG PO HS 12/26/16 Clopidogrel Bisulfate (Clopidogrel) 75 Mg Tablet, 75 MG PO DAILY 08/25/16 Escitalopram Oxalate (Lexapro) 10 Mg Tablet, 10 MG PO DAILY 12/30/14 Discontinued Reported Medications Potassium Chloride (Potassium Chloride) 20 Meq Tab.er.prt, 40 MG PO BID 09/21/16 Discharge Disposition to [place] Follow up Condition at time of discharge: Good Follow up as above Documentation Requirements Documenting Diagnosis CHF CHF Type and Acuity Type of CHF: Other Acuity CHF: Acute JACKSON CUMMINGS DO Sep 25, 2016 14:00 Procedures Procedure Status Date Provider(s) Cine/vid x-ray throat/esoph Completed 08/05/16 Motion fluoroscopy/swallow Completed 08/05/16 [facility] SWALLOW CURRENT STATUS Completed 08/05/16 [facility] SWALLOW GOAL STATUS Completed 08/05/16 [facility] SWALLOW DISCHARGE STATUS Completed 08/05/16 Emergency dept visit Completed 08/25/16 Routine venipuncture Completed 09/10/16 Routine venipuncture Completed 09/10/16 Chest x-ray 2vw frontal&latl Completed 09/10/16 Comprehen metabolic panel Completed 09/10/16 Reagent strip/blood glucose Completed 09/10/16 Reagent strip/blood glucose Completed 09/10/16 Reagent strip/blood glucose Completed 09/10/16 Reagent strip/blood glucose Completed 09/10/16 Assay of lactic acid Completed 09/10/16 Procalcitonin (pct) Completed 09/10/16 Assay of troponin quant Completed 09/10/16 Complete cbc w/auto diff wbc Completed 09/10/16 Influenza a/b ag ia Completed 09/10/16 Electrocardiogram tracing Completed 09/10/16 Airway inhalation treatment Completed 09/10/16 Ther/proph/diag iv inf init Completed 09/10/16 Ther/proph/diag iv inf addon Completed 09/10/16 Tx/pro/dx inj new drug addon Completed 09/10/16 Emergency dept visit Completed 09/10/16 [id number]"INJECTION, LEVOFLOXACIN, 250 MG" Completed 09/10/16 [id number]% DEXTROSE/WATER (500 ML=1 UNIT) Completed 09/10/16 Encounters Encounter Location Arrival/Admit Date Discharge/Depart Date Attending Provider Admitted Inpatient [facility] 09/21/16 12:41pm JACKSON CUMMINGS DO Departed Emergency Room [facility] 09/10/16 11:02pm 09/11/16 4: 05am JACKSON DONAHUE MD Departed Emergency Room [facility] 08/25/16 1:21am 08/25/16 3: 17am SHALONDA HUI MD Registered Clinic [facility] 08/05/16 12:49pm JACKSON CUMMINGS DO Registered Referred [facility] 07/07/16 8:27pm JACKSON CUMMINGS DO Recent Diagnosis Congestive heart failure Depression Hypernatremia Hypoxia memory loss Hypoglycemia LLL pneumonia
[2016-12-05] MEDS ORDERED: D5-1/2 NS 1,000 ML IV ONE ×2 (17:55→19:00)
--- OUTSIDE RECORDS SUMMARY | 2016-12-05 18:00 | XMS REPORT | Continuity of Care Document ---
Author Author [facility] Organization [facility] Address Unknown Phone Unavailable Allergies Medications Problems Procedures Results Encounters ACCT No. Visit Date/Time Discharge Status Pt. Type Provider Facility Loc./Unit Complaint [id number] 08/03/2013 13:41:00 08/03/2013 23 :59:59 CLS Outpatient
--- NOTE | 2016-12-05 18:01 | ERPDOC ---
Departure Disposition Decision Date: Dec 05, 2016 Disposition Decision Time: 19:50 Disposition: 02 TO OBS [facility] Impression Impression Impression: Primary Impression: Hypoglycemia due to insulin Additional Impressions: Type II diabetes mellitus Diabetes mellitus complication status: with neurologic complications Diabetes mellitus complication detail: with unspecified neuropathy Diabetes mellitus terminal operations manager insulin use: with terminal operations manager use Qualified Codes: E11.40 - Type 2 diabetes mellitus with diabetic neuropathy, unspecified; Z79.4 - terminal operations manager (current) use of insulin Aspiration into airway Encounter type: initial encounter Qualified Codes: T17.908A - Unspecified foreign body in respiratory tract, part unspecified causing other injury, initial encounter Severity: Severe Condition: Improved Seen By: Physician only Referrals: JACKSON CUMMINGS DO (Family) Problems/Meds/Labs Reviewed?: Yes Medications reviewed and manag: Yes Follow up care ordered?: Yes Mental Status: Alert, Oriented HPI - General Medical General Stated Complaint: LOW SUGAR,LOC Time Seen by Provider: 17:49 Source: patient, EMS Exam Limitations: no limitations HPI - General Medical Initial Comments 89yo man presented to the ER tonight by EMS for hypoglycemia. Pt has IDDM; was found to have a blood sugar around 32mg/dL. [facility] staff gave peanut butter and honey PO. When EMS arrived, pt had a BG of 22mg/dL; pt vomited while they were placing an IV. EMS suspects aspiration, based on PE prior to arrival. Pt no longer doses his own insulin; NRSing staff at the home does this for him. Takes levemir and novolog. Occurred At: home Onset: Rapid Duration: 1 hr Severity: moderate Modifying Factors: IMPROVES WITH: eating Associated Symptoms: denies symptoms Hx of Similar Symptoms: No Allergies: Coded Allergies: No Known Drug Allergies (Verified Allergy, Unknown, 09/21/16) Past History Patient Surgical History Hernia repair Prostatectomy Past Medical History Metabolic: diabetes, hypertension Cardiac: CAD, [place] Respiratory: pneumonia Musculoskeletal: osteoarthritis Surgical History General: hernia, other Reproductive/: prostatectomy Vaccines Hx Influenza Vaccination: Yes (07/08/16) Hx Pneumococcal Vaccination: Yes (07/08/16) Social History Does patient use chewing tobac: No Second Hand Exposure: No Substance Use Type: does not use Alcohol Intake: none Advance Directives: Yes DNR Review of Systems Pulmonary Respiratory: cough Neurological Comments Mild confusion All other Systems All Other Systems: Reviewed and Negative Physical Exam General General Nourishment: well nourished, well developed, appears stated age, no acute distress, adult, obese General Body Habitus: well groomed Vitals and Pain First Documented Vital Signs Date Time Temp Pulse Resp B/P Pulse Ox O2 Delivery O2 Flow Rate FiO2 12/05/16 17:47 98.3 79 16 157/80 95 Room Air Weight: Kilograms: Height (feet): 6 Height (inches): 1.00 Triage Pain Scale: RN VS reviewed by Provider: Yes Normal Exams: Head: Normocephalic w/o trauma Eyes: Pupils are PERRLA w/ EOMI, No scleral icterus, irritation ENMT: No facial trauma, nasal exudates, pharyngeal erythema Neck: Full range of motion, without adenopathy, JVD CV: Regular rate and rhythm, without murmur or gallop, Pulses 2+ all extremities Abdomen: Bowel sounds positive, soft, non-tender, non-distended Lymphatic: No lymphadenopathy Musculoskeletal: No tenderness, or deformity noted, good range of motion Neurologic: Patient is alert Psychiatric: Patient exhibits, appropriate attention Respiratory (brief) Respiratory: FOUND: equal bilaterally, rales (In RLL), symmetrical, NOT FOUND: clear all varela, wheezes Neurologic (brief) Neurological Brief: FOUND: CN w/o gross def to obs, motor-no gross deficits, sensory-no gross deficits Differential Diagnoses Considering: Acute IL, Depression, DKA, Drug Overdose, Hypo/Hyperglycemia, Hypo /Hyperkalemia, Hypo/Hypernatremia, Medication Effect, Metabolic, Pneumonia, UTI Progress Results/Orders Orders Procedure Category Date Status Time Cbc W/Auto LAB 12/05/16 Complete Diff-Reflex Manual 17:55 Cmp - Comprehensive LAB 12/05/16 Complete Metabolic 17:55 Ua, Dip Wreflex LAB 12/05/16 Logged Microsc & Probation Worker 17:55 Blood Culture LEAH 12/05/16 In Process 17:55 Chest, Pa & Lateral RAD 12/05/16 Taken 17:55 Lipase LAB 12/05/16 Complete 17:55 EKG EKG 12/05/16 Taken 17:55 Magnesium LAB 12/05/16 Complete 17:55 Phosphorus LAB 12/05/16 Complete 17:55 Beta-Hydroxybutyrate LAB 12/05/16 Complete Blood 17:55 Iv Lock (Ed Only) EDM 12/05/16 Transmitted 17:55 Nothing By Mouth (Ed EDM 12/05/16 Transmitted Only) 17:55 D5-1/2 Ns (D5-1/2 Ns) PHA 12/05/16 Complete 17:55 Troponin I W LAB 12/05/16 Complete Hemolysis Index 17:55 Ondansetron Inj PHA 12/05/16 In Process (Zofran) 18:00 Lactate - Lactic Acid LAB 12/05/16 Complete 17:55 Lactate - Lactic Acid LAB 12/05/16 Logged 22:25 Blood Glucose THOMAS 12/05/16 In Process Assessment Bgm 18:28 Procalcitonin LAB 12/05/16 Complete 18:55 D5-1/2 Ns (D5-1/2 Ns) PHA 12/05/16 In Process 19:00 Ceftriaxone I.V. (Er PHA 12/05/16 Complete Use Only) (Rocephin 19:15 Bgm (Ed) EDM 12/05/16 Transmitted 19:37 [address] In Facility: ED ADM 12/05/16 Transmitted Lab Results Laboratory Tests Test 12/05/16 17:56 12/05/16 18:12 12/05/16 18:56 12/05/16 19:40 Glucometer 122mg/dL 205mg/dL 168mg/dL White Blood Count 8.4T/MM3 Red Blood Count 4.51M/MM3 Hemoglobin 12.4GM/DL Hematocrit 39.5% Mean Corpuscular Volume 87.6UM3 Mean Corpuscular Hemoglobin 27.5UUG Mean Corpuscular Hemoglobin Concent 31.4GM/DL RDW Standard Deviation 59.5FL Platelet Count 224T/MM3 Mean Platelet Volume 10.1UM3 Immature Granulocyte % (Auto) 0.4% Neutrophils (%) (Auto) 74.9% Lymphocytes (%) (Auto) 13.0% Monocytes (%) (Auto) 8.7% Eosinophils (%) (Auto) 2.4% Basophils (%) (Auto) 0.6% Absolute Immature Granulocyte (auto 0.03T/MM3 Absolute Neutrophils (auto) 6.3T/MM3 Absolute Lymphocytes (auto) 1.1T/MM3 Absolute Monocytes (auto) 0.7T/MM3 Absolute Eosinophils (auto) 0.2T/MM3 Absolute Basophils (auto) 0.1T/MM3 Turbidity < 20 Sodium Level 146MEQ/L Potassium Level 3.6MEQ/L Chloride Level 101MEQ/L Carbon Dioxide Level 31MEQ/L Anion Gap 14MEQ/L Blood Urea Nitrogen 18.0MG/DL Creatinine 0.9MG/DL Glomerular Filtration Rate Calc 79 BUN/Creatinine Ratio 20RATIO Glucose Level 121MG/DL Calculated Osmolality 284MOSM/KG Calcium Level 9.0MG/DL Phosphorus Level 4.2MG/DL Magnesium Level 2.0MG/DL Total Bilirubin 0.50MG/DL Icterus Index < 2 Aspartate Amino Transf (AST/SGOT) 27U/L Alanine Aminotransferase (ALT/SGPT) 27U/L Alkaline Phosphatase 113U/L Troponin I < 0.012ng/ml Total Protein 7.1G/DL Albumin 3.8G/DL Globulin 3.3G/DL Albumin/Globulin Ratio 1.2RATIO Lipase 127U/L Plasma Lactate 2.8MMOL/L Procalcitonin < 0.05NG/ML Chemistry Specimen Hemolysis < 15 B-Hydroxybutyrate 0.20MMOL/L Medications Current ED Medications Dextrose/Sodium Chloride (D5-1/2 NS) 1,000 ml @ 125 mls/hr Q8H ONCE IV Last administered on 12/05/16 18:43; Start 12/05/16 at 17:55; Stop 12/05/16 at 18:58; Status DC Ondansetron HCl 4 mg 4 mg Q6H PRN IV NAUSEA &/OR VOMITING Last administered on 12/05/16 18:43; Start 12/05/16 at 18:00 Dextrose/Sodium Chloride 1,000 ml @ 70 mls/hr [id number] ONCE IV Last administered on 12/05/16 19:35; Start 12/05/16 at 19:00; Stop 12/06/16 at 09:17 Ceftriaxone Sodium/Sodium Chloride (Rocephin/NS) 100 ml @ 100 mls/hr O ONCE IV Last administered on 12/05/16 19:34; Start 12/05/16 at 19:15; Stop 12/05/16 at 20:14; Status DC EKG EKG : Rate: 60-100 Rhythm: sinus [place]: left QRS: normal Intervals: normal ST/T: non-specific changes Subtle Signs LVH Interpreted by: signing physician Consult/PCP Consult/PCP : Physician Contacted: Simone Telemed Time Called: 19:43 Time of first response: 19:47 Type of discussion: Admit Discussion/PCP Discussion Details Will admit for obs Xray Xray : Xray: CXR PA/Lat Interpretation: Normal, Interpreted by RAFAEL Burgess DO Dec 05, 2016 18:01
[2016-12-05] MEDS ORDERED: DEXT31GE3 PO (18:08)
[2016-12-05] MEDS ORDERED: MULT-378 PO (18:13)
[2016-12-05] MEDS ORDERED: FERR-70 PO (18:14)
[2016-12-05] MEDS ORDERED: DOCU-175 PO (18:15)
[2016-12-05] MEDS ORDERED: POTA-12 PO (18:16)
[2016-12-05] MEDS ORDERED: FURO20TA4 PO (18:17)
[2016-12-05] MEDS ORDERED: QUET25TA73 PO (18:18)
[2016-12-05] MEDS ORDERED: ALBU2.5V2 AEROSOL (18:20)
[2016-12-05] MEDS ORDERED: POLY17PO6 PO (18:22)
[2016-12-05] MEDS ORDERED: MAGN400O4 PO (18:24)
[2016-12-05 18:42] LABS: BASOPHILS # (AUTO) 0.1 T/MM3 (0-0.2); BASOPHILS % (AUTO) 0.6 % (0-2); EOSINOPHILS # (AUTO) 0.2 T/MM3 (0-0.5); EOSINOPHILS % (AUTO) 2.4 % (0-4); HCT - HEMATOCRIT 39.5 % (41-53); HGB - HEMOGLOBIN 12.4 GM/DL (13.5-17.5); IMMATURE GRANULOCYTE # (AUTO) 0.03 T/MM3 (0.00-0.03); IMMATURE GRANULOCYTE % (AUTO) 0.4 % (0.0-0.5); LYMPHOCYTES # (AUTO) 1.1 T/MM3 (1-4.8); MEAN CORPUSCULAR HGB 27.5 UUG (26-34); MEAN CORPUSCULAR HGB CONC(MCHC 31.4 GM/DL (31-37); MEAN CORPUSCULAR VOLUME 87.6 UM3 (80-100); MEAN PLATELET VOLUME 10.1 UM3 (9.4-12.4); MONOCYTES # (AUTO) 0.7 T/MM3 (0-0.8); MONOCYTES % (AUTO) 8.7 % (0-9.0); NEUTROPHILS #(AUTO)-ABSOLUTE 6.3 T/MM3 (1.8-7.7); NEUTROPHILS % (AUTO) 74.9 % (33-66); RED BLOOD COUNT 4.51 M/MM3 (4.50-5.90); WBC - WHITE BLOOD COUNT 8.4 T/MM3 (4.5-11.0)
[2016-12-05] MEDS: ONDANSETRON 4mg/2ml INJECTION IV PRN (18:43)
[2016-12-05 18:51] LABS: LACTATE - LACTIC ACID 2.8 MMOL/L (0.6-2.2)
[2016-12-05 18:53] LABS: ALBUMIN 3.8 G/DL (3.5-5.0); ALBUMIN/GLOBULIN RATIO 1.2 RATIO (1.1-2.2); ALKALINE PHOSPHATASE 113 U/L (38-126); ALT (SGPT) 27 U/L (21-72); ANION GAP 14 MEQ/L (5-15); AST (SGOT) 27 U/L (17-59); BUN/CREATININE RATIO 20 RATIO (6-26); CHLORIDE 101 MEQ/L (98-107); CO2 - CARBON DIOXIDE 31 MEQ/L (22-30); CREATININE 0.9 MG/DL (0.8-1.5); GLOMERULAR FILTRATION RATE 79; GLUCOSE 121 MG/DL (75-110); LIPASE 127 U/L (23-300); POTASSIUM 3.6 MEQ/L (3.6-5); SODIUM 146 MEQ/L (134-144); TOTAL PROTEIN 7.1 G/DL (6.3-8.2)
[2016-12-05] MEDS ORDERED: CEFTRIAXONE I.V. (ER USE ONLY) 1 G in NORMAL SALINE 100 ML IV ONE (19:15)
[2016-12-05 19:16] LABS: PHOSPHORUS 4.2 MG/DL (2.5-4.5)
--- OUTSIDE RECORDS SUMMARY | 2016-12-05 20:01 | XMS REPORT | Continuity of Care Document ---
Author Author [facility] Organization [facility] Address Unknown Phone Unavailable Allergies Medications Problems Procedures Results Encounters ACCT No. Visit Date/Time Discharge Status Pt. Type Provider Facility Loc./Unit Complaint [id number] 08/03/2013 13:41:00 08/03/2013 23 :59:59 CLS Outpatient
[2016-12-05] MEDS ORDERED: D5-1/2 NS 1,000 ML IV SCH (20:04)
[2016-12-05] MEDS ORDERED: POLYETHYL.GLYCOL 3350 PACKET 17gm PO PRN (20:15)
[2016-12-05] MEDS ORDERED: SALINE NASAL SPRAY 45ml EA NOSTRIL SCH (20:15)
[2016-12-05] MEDS ORDERED: ACETAMINOPHEN 325 MG TABLET PO PRN (20:15)
[2016-12-05] MEDS ORDERED: ALBUTEROL INH.SOLN. 2.5 MG/0.5 ML (0.5%) Neb. AEROSOL PRN (20:15)
[2016-12-05] MEDS ORDERED: GLUCOSE ORAL GEL 40% 37.5 G TUBE PO SCH (20:15)
[2016-12-05] MEDS ORDERED: ONDANSETRON 4mg/2ml INJECTION IV PRN (20:15)
--- NOTE | 2016-12-05 20:15 | NUR ---
Admit To Rm 137 @ this time, in no acute distress, will continue to monitor.
[2016-12-05 20:21] VITALS: BP 166/78; PULSE 85; RESP 20; TEMP 97.1; O2SAT 91
[2016-12-05 20:22] VITALS: Ht 185.4 cm; Wt 81.3 kg
--- NOTE | 2016-12-05 20:29 | HPPDOC ---
DEYANIRA SAMS MD 12/05/162022: HPI - Adult Date DATE: 12/05/16 TIME: 20:20 General Chief Complaint: hypoglycemia History of Present Illness Pleasant 89-year-old white male who had hypoglycemic event this evening at his half-way. he's had quite labile blood sugars over the past couple weeks. Because of this they've been checking them every 2 hours, he came in today to check him leaving and found to be hypoglycemic (please review medication list outpatient setting, his insulin regimen appears a bit unusual to me), he was noted to be hypoglycemic in the range of 35 and was given honey and bladder as a treatment. At some point emergency services was contacted, and they checked his blood sugar 22. He was given an ampule of D50, his sugar vj to 200, later on had dropped some to 122 in the emergency room, he was started on D5 half normal and his sugar was in the range of pe. Also at some point in the EMS transport he vomited, and as reported by EMS they thought he aspirated. He currently feels fine as I interview him hospital bed. Daughter is at the bedside providing additional history. He states his blood sugars have been quite labile, they have been diligent at his half-way monitoring and measuring sugars O. He does see Dr. Eric for diabetic care. He was last seen on November 17 and they've been adjusting his insulin dosing though his daughters are not familiar with the actual doses. Past Medical History Past Medical History CAD OA Diabetes mellitus II Gastroparesis HTN Surgical History Patient's Surgical History: Hernia repair Prostatectomy Current Medications Home Meds Reported Medications Magnesium Hydroxide (Milk of Magnesia) 400 Mg/5 Ml Oral.susp, 30 ML PO Q12H Y for CONSTIPATION 12/05/16 Polyethylene Glycol 3350 (Miralax) 17 Gm Powd.pack, 17 G PO DAILY Y for PRN ORDERS Take 17 Grams (1 capful), by mouth, once a day. 12/05/16 Albuterol Sulfate (Albuterol Sulfate) 2.5 Mg/0.5 Ml Vial.neb, 1 VIAL AEROSOL Q6H Y for SHORTNESS OF AIR 12/05/16 Quetiapine Fumarate (Quetiapine Fumarate) 25 Mg Tablet, 25 MG PO HS 12/05/16 Furosemide (Furosemide) 20 Mg Tablet, 20 MG PO BID 12/05/16 Potassium Chloride (Potassium Chloride) 10 Meq Tab.er.prt, 10 MEQ PO BID 12/05/16 Docusate Sodium (Docusate Sodium) 100 Mg Capsule, 100 MG PO BID 12/05/16 Ferrous Sulfate (Ferrous Sulfate) 325 Mg Tablet, 1 TAB PO DAILY BEST WITH FOOD. 12/05/16 Multivitamins with Iron (One Daily with Iron) 1 Each Tablet, 1 TAB PO DAILY 12/05/16 Dextrose/Dextrin/Maltose (Insta-Glucose Gel) 31 Gm Gel..gram., 1 DOSE PO PRN WITH BGM <40 12/05/16 Sodium Chloride (Saline Nasal Sheridan) 30 Ml Sheridan, 1-2 SPRAY EA NOSTRIL BID 09/21/16 Propylene Glycol/Peg 400 (Systane Ultra 0.4-0.3% Eye Drp) 10 Ml Drops, 1 DROP BOTH EYES PRN Y for DRY EYES 09/21/16 Acetaminophen (Acetaminophen) 325 Mg Tablet, 650 MG PO Q4H Y for PAIN 09/21/16 Sodium Chloride (Saline Nasal Sheridan) 30 Ml Sheridan, 1-2 SPRAY EA NOSTRIL PRN 09/21/16 Saliva Substitution Combo No.9 (Biotene) 1,000 Ml Mouthwash, 15 ML PO BID 09/21/16 Nut.tx.gluc.intoler,Lac-Fr,Soy (Glucerna) 237 Ml Liquid, 237 ML PO BID 09/21/16 Metoprolol Tartrate (Metoprolol Tartrate) 100 Mg Tablet, 100 MG PO BID 09/21/16 Omeprazole Magnesium (Prilosec) 10 Mg Suspdr.pkt, 20 MG PO DAILY 09/21/16 Insulin Detemir (Levemir) 100 Unit/Ml Inj, 7 UNIT SQ HS 09/21/16 Insulin Aspart (Novolog) 100 Unit/Ml Inj, 45 UNIT SQ WB 09/21/16 Insulin Aspart (Novolog) 100 Unit/Ml Inj, 8 UNIT SQ WS 09/21/16 Insulin Aspart (Novolog) 100 Unit/Ml Inj, 15 UNIT SQ WL 09/21/16 Cyanocobalamin (Vitamin B-12) (Vitamin B-12) 1,000 Mcg Tablet, 1000 MCG PO 1 MONTH 09/10/16 Losartan Potassium (Losartan Potassium) 25 Mg Tablet, 25 MG PO DAILY 09/10/16 Aspirin (Aspir 81) 81 Mg Tablet.dr, 81 MG PO DAILY 08/25/16 Calcium Carbonate (Calcium Carbonate) 600 Mg Tablet, 600 MG PO DAILY 08/25/16 Atorvastatin Calcium (Atorvastatin Calcium) 40 Mg Tablet, 40 MG PO HS 08/25/16 Clopidogrel Bisulfate (Clopidogrel) 75 Mg Tablet, 75 MG PO DAILY 08/25/16 Escitalopram Oxalate (Lexapro) 10 Mg Tablet, 10 MG PO DAILY 12/30/14 Allergies: Coded Allergies: No Known Drug Allergies (Verified Allergy, Unknown, 09/21/16) Family History Family History: non-contributory Social History Smoking Status: Former smoker (smoked a little in his 20s, none since) Does patient use chewing tobac: No Second Hand Exposure: No Substance Use Type: does not use Alcohol Intake: none Housing: half-way Advance Directives: Yes DNR Review of Systems All Other Systems All Other Systems: Reviewed (remainder of 10-point ROS Neg.) Physical Exam General General Nourishment: thin, apparent age Vital Signs Vital Signs Date Time Temp Pulse Resp B/P Pulse Ox O2 Delivery O2 Flow Rate FiO2 12/05/16 18:22 81 97 Room Air 12/05/16 17:47 98.3 16 157/80 Height (Feet): 6 Height (Inches): 1.00 Telemetry Rhythm: Sinus Tachycardia Eyes Brief: FOUND: PERRL Respiratory Brief: FOUND: equal bilaterally Comments maybe few rhonchi, clear w cough. Normal respiratory effort Cardiovascular (brief) Cardiac Brief: FOUND: murmur (3/6 HAYLEE best heard at @2LICS), regular rate, regular rhythm, NOT FOUND: pedal edema Abdomen (brief) Abdominal Brief: FOUND: BS normo active x4, soft, NOT FOUND: distended, tender Neurologic (brief) Neurological Brief: FOUND: cranial 2-12 intact, motor Comments has left visual field deficit and hard of hearing. not a good historian Neurologic Mental Status: FOUND: alert, confused RN Documented GCS Eye Opening: (4)Spontaneous Verbal: (5)Oriented Motor: (6)Obeys Commands Total: Psychiatric (brief) FOUND: alert Laboratory Laboratory Tests Test 12/05/16 17:56 12/05/16 18:12 12/05/16 18:56 12/05/16 19:40 Glucometer 122mg/dL 205mg/dL 168mg/dL White Blood Count 8.4T/MM3 Red Blood Count 4.51M/MM3 Hemoglobin 12.4GM/DL Hematocrit 39.5% Mean Corpuscular Volume 87.6UM3 Mean Corpuscular Hemoglobin 27.5UUG Mean Corpuscular Hemoglobin Concent 31.4GM/DL RDW Standard Deviation 59.5FL Platelet Count 224T/MM3 Mean Platelet Volume 10.1UM3 Immature Granulocyte % (Auto) 0.4% Neutrophils (%) (Auto) 74.9% Lymphocytes (%) (Auto) 13.0% Monocytes (%) (Auto) 8.7% Eosinophils (%) (Auto) 2.4% Basophils (%) (Auto) 0.6% Absolute Immature Granulocyte (auto 0.03T/MM3 Absolute Neutrophils (auto) 6.3T/MM3 Absolute Lymphocytes (auto) 1.1T/MM3 Absolute Monocytes (auto) 0.7T/MM3 Absolute Eosinophils (auto) 0.2T/MM3 Absolute Basophils (auto) 0.1T/MM3 Turbidity < 20 Sodium Level 146MEQ/L Potassium Level 3.6MEQ/L Chloride Level 101MEQ/L Carbon Dioxide Level 31MEQ/L Anion Gap 14MEQ/L Blood Urea Nitrogen 18.0MG/DL Creatinine 0.9MG/DL Glomerular Filtration Rate Calc 79 BUN/Creatinine Ratio 20RATIO Glucose Level 121MG/DL Calculated Osmolality 284MOSM/KG Calcium Level 9.0MG/DL Phosphorus Level 4.2MG/DL Magnesium Level 2.0MG/DL Total Bilirubin 0.50MG/DL Icterus Index < 2 Aspartate Amino Transf (AST/SGOT) 27U/L Alanine Aminotransferase (ALT/SGPT) 27U/L Alkaline Phosphatase 113U/L Troponin I < 0.012ng/ml Total Protein 7.1G/DL Albumin 3.8G/DL Globulin 3.3G/DL Albumin/Globulin Ratio 1.2RATIO Lipase 127U/L Plasma Lactate 2.8MMOL/L Procalcitonin < 0.05NG/ML Chemistry Specimen Hemolysis < 15 B-Hydroxybutyrate 0.20MMOL/L Concerns For Adverse Events lactate high out of proportion to events it seems. Not hypoxic or in any distress. Gt rocephin in ER but not sure needs any more abx. Assessment & Plan Problems: (1) Hypoglycemia due to insulin Status: Acute Assessment & Plan: per report his sugars have been quite labile. He is on interesting regimen very high dose of fast acting insulin in the morning with lower doses meals, and only a small dose relatively speaking of long-acting insulin. I would very much like to hear from the adjunct professor of law as to the dosing history. For tonight we'll not give any further insulin nor any more glucose 80 minutes and monitor levels. I would anticipate resuming a long- acting dose of insulin in the morning along with a change in balance perhaps 50 % long-acting and 50% short acting divided equally between meals. however if this has failed past, been very helpful to get that history from his diabetes doctor (2) Aspiration of vomit Status: Acute Qualifiers: Encounter type: initial encounter Qualified Codes: T17.910A - Gastric contents in respiratory tract, part unspecified causing asphyxiation, initial encounter Assessment & Plan: no hypoxia, I think should followed for now, no further antibiotics were scheduled basis. Repeat evaluation in the morning (3) Type II diabetes mellitus, uncontrolled Status: Acute Qualifiers: Diabetes mellitus complication status: with hypoglycemia Assessment & Plan: no further insulin or sugar tonight, follow glucose levels tonight, seems like we should try basal/bolus at 50/50 ratios, skewed much in favor of AM humalog. 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 (6) Diabetic gastroparesis Status: Chronic (7) HTN (hypertension) Status: Chronic (8) Elevated lactic acid level Status: Acute Assessment & Plan: seems out of provportion to overall presentation, I dont think septic. Aspiration event so got a dose of rocephin but not convinced in fected and not an infiltrate on 1 view CXR Code Status Full Code Hospital Course Summary Disclaimer The hospital course summary below is not to be considered part of the above Progress Note. RASHEED HASKINS MD 12/06/16 1103: Past Medical History Current Medications Home Meds Reported Medications Magnesium Hydroxide (Milk of Magnesia) 400 Mg/5 Ml Oral.susp, 30 ML PO Q12H Y for CONSTIPATION 12/05/16 Polyethylene Glycol 3350 (Miralax) 17 Gm Powd.pack, 17 G PO DAILY Y for PRN ORDERS Take 17 Grams (1 capful), by mouth, once a day. 12/05/16 Albuterol Sulfate (Albuterol Sulfate) 2.5 Mg/0.5 Ml Vial.neb, 1 VIAL AEROSOL Q6H Y for SHORTNESS OF AIR 12/05/16 Quetiapine Fumarate (Quetiapine Fumarate) 25 Mg Tablet, 25 MG PO HS 12/05/16 Furosemide (Furosemide) 20 Mg Tablet, 20 MG PO BID 12/05/16 Potassium Chloride (Potassium Chloride) 10 Meq Tab.er.prt, 10 MEQ PO BID 12/05/16 Docusate Sodium (Docusate Sodium) 100 Mg Capsule, 100 MG PO BID 12/05/16 Ferrous Sulfate (Ferrous Sulfate) 325 Mg Tablet, 1 TAB PO DAILY BEST WITH FOOD. 12/05/16 Multivitamins with Iron (One Daily with Iron) 1 Each Tablet, 1 TAB PO DAILY 12/05/16 Dextrose/Dextrin/Maltose (Insta-Glucose Gel) 31 Gm Gel..gram., 1 DOSE PO PRN WITH BGM <40 12/05/16 Sodium Chloride (Saline Nasal Sheridan) 30 Ml Sheridan, 1-2 SPRAY EA NOSTRIL BID 09/21/16 Propylene Glycol/Peg 400 (Systane Ultra 0.4-0.3% Eye Drp) 10 Ml Drops, 1 DROP BOTH EYES PRN Y for DRY EYES 09/21/16 Acetaminophen (Acetaminophen) 325 Mg Tablet, 650 MG PO Q4H Y for PAIN 09/21/16 Sodium Chloride (Saline Nasal Sheridan) 30 Ml Sheridan, 1-2 SPRAY EA NOSTRIL PRN 09/21/16 Saliva Substitution Combo No.9 (Biotene) 1,000 Ml Mouthwash, 15 ML PO BID 09/21/16 Nut.tx.gluc.intoler,Lac-Fr,Soy (Glucerna) 237 Ml Liquid, 237 ML PO BID 09/21/16 Metoprolol Tartrate (Metoprolol Tartrate) 100 Mg Tablet, 100 MG PO BID 09/21/16 Omeprazole Magnesium (Prilosec) 10 Mg Suspdr.pkt, 20 MG PO DAILY 09/21/16 Insulin Detemir (Levemir) 100 Unit/Ml Inj, 7 UNIT SQ HS 09/21/16 Insulin Aspart (Novolog) 100 Unit/Ml Inj, 45 UNIT SQ WB 09/21/16 Insulin Aspart (Novolog) 100 Unit/Ml Inj, 8 UNIT SQ WS 09/21/16 Insulin Aspart (Novolog) 100 Unit/Ml Inj, 15 UNIT SQ WL 09/21/16 Cyanocobalamin (Vitamin B-12) (Vitamin B-12) 1,000 Mcg Tablet, 1000 MCG PO 1 MONTH 09/10/16 Losartan Potassium (Losartan Potassium) 25 Mg Tablet, 25 MG PO DAILY 09/10/16 Aspirin (Aspir 81) 81 Mg Tablet.dr, 81 MG PO DAILY 08/25/16 Calcium Carbonate (Calcium Carbonate) 600 Mg Tablet, 600 MG PO DAILY 08/25/16 Atorvastatin Calcium (Atorvastatin Calcium) 40 Mg Tablet, 40 MG PO HS 08/25/16 Clopidogrel Bisulfate (Clopidogrel) 75 Mg Tablet, 75 MG PO DAILY 08/25/16 Escitalopram Oxalate (Lexapro) 10 Mg Tablet, 10 MG PO DAILY 12/30/14 Allergies: Coded Allergies: No Known Drug Allergies (Verified Allergy, Unknown, 09/21/16) Assessment & Plan Assessment 12/06/2016-Dr. Haskins-I have reviewed the history and physical Above dictated by Dr. Sams. I have independently examined the patient and taken a history. The patient was seen this morning alone in his room. He does have some memory difficulties, and this limits history taking. Chief complaint last night was vomiting, aspiration and severe hypoglycemia History of present illness: The patient is a very pleasant 89-year-old male who lives in a half-way. He states he's had diabetes for at least 50 years. Blood sugars have been labile. He states he felt terrible yesterday and was vomiting. The paramedics thought he had likely aspirated and he agrees. He states he has some cough and mild shortness of breath, but overall feels much better. He denies any nausea or vomiting now. He does feel hungry. He denies any pain anywhere including abdominal pain. He has had no recent diarrhea. He has a fairly unusual insulin regimen and is on 7 units of Levemir at at bedtime, 45 units of NovoLog with breakfast, 15 units of NovoLog with lunch, and 8 units of NovoLog with supper. He reportedly eats a large amount for breakfast and then much smaller amounts for lunch and supper. He admits that he really likes to drink apple juice at breakfast time. Past medical history, family history, social history, and review of systems are difficult to obtain secondary to the patient's memory issues Last night he was admitted and placed on D5 half-normal for hypoglycemia. He was given Rocephin 1 in the emergency room. Overnight he developed a fever and hypoxia. Zosyn was added for possible aspiration pneumonia. He is currently receiving Accu-Cheks hourly. He is on low-dose sliding scale insulin. He received 15 units of Levemir this morning and 5 units of NovoLog with breakfast (which was clear liquids). Lab today shows white count is 24.8 up from 8.4. Bands are 15%. Neutrophils 78% . Hemoglobin 10.7 down from 12.4, likely dilutional. Platelets are normal. Basic metabolic is normal other than blood sugar of 361. On admission lactate was elevated at 2.8. Last lactate was normal. Her enzymes and troponin were normal on admission. Physical exam Blood pressure is 126/57, heart rate 86, most recent temp 96.6 orally. MAXIMUM TEMPERATURE 101, O2 sat 96% on 2 L GEN-alert, no acute distress HEENT-sclera anicteric, oropharynx is moist NECK-supple, no JVD CV-regular rate and rhythm CHEST-coarse breath sounds bilaterally, no wheezing ABD-soft, nontender, nondistended with positive bowel sounds -no Morin EXT-trace edema NEURO-no focal deficits, some memory impairment SKIN-warm and dry and without rashes Chest x-ray yesterday on my read shows a possible basilar infiltrate on lateral view , no cardiomegaly or pulmonary edema. Possible left pleural effusion. Official radiology report is pending Impression and plan Labile blood sugars-we'll check blood sugars pre-and post meals for now. Discontinue every hour blood sugars. Adjust insulin as needed. Severe sepsis-likely secondary to aspiration pneumonia Possible aspiration pneumonia with hypoxia-continue Zosyn Acute hypoxic respiratory failure-continue antibiotics, breathing treatments, supplemental oxygen, incentive spirometer Hypertension continue metoprolol as tolerated. Losartan can be continued if blood pressure is not low. History of gastroparesis-monitor for recurrence of nausea or vomiting Coronary artery disease-continue Plavix and aspirin and statin Questionable CHF hold furosemide for now, may need to restart tomorrow Possible depression and reported history of hallucinations-continue Seroquel and Lexapro- DVT Prophylaxis: SCD'S DEYANIRA SAMS MD Dec 05, 2016 20:23 RASHEED HASKINS MD Dec 06, 2016 11:03
[2016-12-05 20:48] VITALS: PULSE 85; RESP 20
[2016-12-05] MEDS ORDERED: SENNA + DOCUSATE TAB PO SCH (21:00)
[2016-12-05] MEDS ORDERED: POTASSIUM CHLORIDE 10 MEQ TABLET PO SCH (21:00)
[2016-12-05] MEDS ORDERED: NUT TX GLUC INTOLER LAC FR SOY PO SCH (21:00)
[2016-12-05 21:47] VITALS: PULSE 86; RESP 20; O2SAT 92
[2016-12-05] MEDS: SALINE NASAL SPRAY 45ml EA NOSTRIL SCH (22:00)
[2016-12-05] MEDS: [UNRECOGNIZED DRUG - OTHER] MM SCH (22:00)
[2016-12-05] MEDS: FUROSEMIDE 20 MG TABLET PO SCH (22:02)
[2016-12-05] MEDS: ATORVASTATIN 40 MG TABLET PO SCH (22:02)
[2016-12-05] MEDS: DOCUSATE SODIUM 100 MG CAPSULE PO SCH (22:02)
--- NOTE | 2016-12-05 22:56 | NUR ---
O2 PT PLACED ON 2L O2 NC AT THIS TIME FOR SATS SUSTAINED AT 87% ON RA, PT DID VERBALIZE THAT HE NORMALLY WEARS O2 AT HOME WHILE SLEEPING BUT WAS UNSURE HOW MANY LITERS.
[2016-12-05 23:16] VITALS: TEMP 99.5
[2016-12-05] MEDS: NORMAL SALINE 500 ML IV SCH (23:19)
[2016-12-06] VITALS (14 sets, daily range): BP systolic 97–149; BP diastolic 53–83; PULSE 76–112; RESP 16–30; TEMP 96.4–101; O2SAT 91–96
--- NOTE | 2016-12-06 00:02 | NUR ---
VS Change + BGM Dr. Hilliard notified of pt's HR increased from 80s to 110s, temp from 97.1F to 99.1F, continued N/V and BMG 303. Orders received for Levemir and Reglan. Will admin and continue to monitor.
[2016-12-06] MEDS ORDERED: INSULIN DETEMIR 100 UNIT/ML SQ ONE (00:15)
[2016-12-06] MEDS: NORMAL SALINE 500 ML IV SCH ×2 (00:15→01:15)
[2016-12-06] MEDS ORDERED: METOCLOPRAMIDE 10mg/2ml INJECTION IV PRN (00:15)
--- NOTE | 2016-12-06 00:43 | NUR ---
Bed Change To RM 142 which is closer to nurse station for closer monitoring after pt made several attempts to get out of bed w/o staff assist/supervision. Pt seems weaker than at time of admit and has some confusion/forgetfulness. Resting in bed, will continue to monitor.
[2016-12-06] MEDS ORDERED: INSULIN ASPART 100 UNIT/ML SQ ONE ×2 (03:15→05:00)
--- NOTE | 2016-12-06 03:15 | NUR ---
BGM & VS Update Dr. Hilliard notified of BGM 416 & VS not improved. Temp 101F before Tylenol, tachypnic, continued tachycardia, warm/flushed skin, increased confusion from time of admit, pt quite restless/has not slept. Orders received for insulin, add. abx and PRN Haldol. supervisor sandblaster called for abx, will initiate orders and continue to monitor.
[2016-12-06] MEDS ORDERED: HALOPERIDOL 5 MG/ML INJECTION IV PRN (03:30)
[2016-12-06] MEDS: PIPERACILLIN/TAZOBACTAM 3.375 G in NORMAL SALINE 100 ML IV SCH ×3 (03:38→21:43)
[2016-12-06 05:54] LABS: HGB - HEMOGLOBIN 10.9 GM/DL (13.5-17.5); MEAN CORPUSCULAR HGB 27.5 UUG (26-34); MEAN CORPUSCULAR HGB CONC(MCHC 31.1 GM/DL (31-37); MEAN CORPUSCULAR VOLUME 88.2 UM3 (80-100); MEAN PLATELET VOLUME 10.3 UM3 (9.4-12.4); RED BLOOD COUNT 3.97 M/MM3 (4.50-5.90); WBC - WHITE BLOOD COUNT 24.8 T/MM3 (4.5-11.0)
[2016-12-06 06:05] LABS: ANION GAP 12 MEQ/L (5-15); BUN/CREATININE RATIO 20 RATIO (6-26); CALCIUM 8.6 MG/DL (8.4-10.2); CHLORIDE 103 MEQ/L (98-107); CO2 - CARBON DIOXIDE 26 MEQ/L (22-30); CREATININE 0.9 MG/DL (0.8-1.5); GLOMERULAR FILTRATION RATE 79; GLUCOSE 361 MG/DL (75-110); POTASSIUM 3.8 MEQ/L (3.6-5); SODIUM 141 MEQ/L (134-144)
[2016-12-06 06:15] LABS: BAND NEUTROPHILS # 3.7 T/MM3; LYMPHOCYTES # (MANUAL) 1.2 T/MM3 (1-4.8); MONOCYTES # (MANUAL) 0.5 T/MM3 (0-0.8); NEUTROPHILS #(MANUAL)-ABSOLUTE 19.3 T/MM3 (1.8-7.7); POIKILOCYTOSIS 1+; TOTAL CELLS COUNTED 100 %
--- NOTE | 2016-12-06 06:24 | NUR ---
Status Latest sugar 317, have been managing hourly with Dr. Hilliard and administering insulin when ordered. VS stable after Tylenol and add. abx therapy. HR back in 80s, breathing WNL, fever broke - pt was very sweaty and skin is normal/appropriate color and is no longer hot to touch. Pt is up to recliner this am although does appear to be sleeping, will continue to monitor.
[2016-12-06] MEDS ORDERED: OMEPRAZOLE 10 MG CAPSULE PO SCH (06:30)
[2016-12-06] MEDS ORDERED: DEXTROSE 50% SYRINGE 50ml (Eq. 1 AMP) IV PRN (07:00)
[2016-12-06] MEDS: OMEPRAZOLE 20 MG CAPSULE PO SCH (07:10)
[2016-12-06] MEDS: INSULIN ASPART 100 UNIT/ML SQ PRN ×4 (08:01→22:03)
[2016-12-06] MEDS: NORMAL SALINE 1,000 ML IV SCH ×2 (08:08→19:57)
[2016-12-06] MEDS: ALBUTEROL/IPRATROPIUM INHAL. 2.5mg-0.5mg/3ml Neb. AEROSOL PRN ×3 (08:21→15:34)
[2016-12-06] MEDS ORDERED: INSULIN DETEMIR 100 UNIT/ML SQ SCH (09:00)
[2016-12-06] MEDS: LOSARTAN 50 MG TABLET PO SCH (09:00)
[2016-12-06] MEDS: FUROSEMIDE 20 MG TABLET PO SCH ×2 (09:00→21:45)
[2016-12-06] MEDS: IRON PO SCH (09:08)
[2016-12-06] MEDS: INSULIN ASPART 100 UNIT/ML SQ SCH ×3 (09:08→17:49)
[2016-12-06] MEDS: ESCITALOPRAM 10 MG TABLET PO SCH (09:08)
[2016-12-06] MEDS: CLOPIDOGREL 75 MG TABLET PO SCH (09:08)
[2016-12-06] MEDS: MULTIVITAMIN PO SCH (09:08)
[2016-12-06] MEDS: CYANOCOBALAMIN (B-12) 500mcg TABLET PO SCH (09:08)
[2016-12-06] MEDS: ASPIRIN *EC* 81mg TABLET PO SCH (09:09)
[2016-12-06] MEDS: DOCUSATE SODIUM 100 MG CAPSULE PO SCH ×2 (09:09→21:44)
[2016-12-06] MEDS: CALCIUM CARBONATE 600 MG TABLET PO SCH (09:09)
[2016-12-06] MEDS: POTASSIUM CHLORIDE 10 MEQ TABLET PO SCH ×2 (09:09→17:49)
[2016-12-06] MEDS: SALINE NASAL SPRAY 45ml EA NOSTRIL SCH ×2 (09:10→21:00)
[2016-12-06] MEDS: [UNRECOGNIZED DRUG - OTHER] MM SCH ×2 (09:10→21:00)
--- NOTE | 2016-12-06 11:56 | NUR ---
CM THIS WORKER MET WITH SON, VENANCIO HOLDEN AT THIS TIME. REVIEWED DISCHARGE PLAN. NAVIN REPORTED THAT DISCHARGE PLAN WOULD BE FOR PT TO RETURN TO [facility] AT TIME OF DISCHARGE. QUESTIONS ANSWERED AT THIS TIME. THIS WORKER EXPLAINED THAT CASE MANAGEMENT WOULD ASSIST IN DISCHARGE PLANNING.
--- NOTE | 2016-12-06 14:00 | NUR ---
notified Dr. Haskins kept up-to-date with blood sugar readings throughout the morning. Doctor notified at this time that patient has only voided 50ml today and bladder scan shows 0ml residual. No further orders. Will continue to monitor.
[2016-12-06 14:06] LABS: BLOOD, URINE NEGATIVE (NEGATIVE); COLOR,URINE YELLOW (YELLOW); LEUKOCYTE ESTERASE ,URINE NEGATIVE (NEGATIVE); NITRITE,URINE NEGATIVE (NEGATIVE); UROBILINOGEN,URINE 0.2 EU/DL (NORMAL)
[2016-12-06] MEDS ORDERED: INSULIN ASPART 100 UNIT/ML SQ SCH (17:30)
--- NOTE | 2016-12-06 17:30 | NUR ---
DrJosette Notified Dr. Haskins notified that patient's 1600 blood pressure reading was 97/57. Patient remains asymptomatic. Dr. Haskins also notified that patient has still not voided and bladder scan shows 159 ml in bladder. Order to continue IV fluids at 75ml/hr. Insulin dosage also clarified at this time. Both 5u and 8u had been ordered separately for dinner time. Verbal order to only administer 5u given at this time.
[2016-12-06] MEDS ORDERED: FUROSEMIDE 40 MG/4 ML PO ONE (18:00)
[2016-12-06] MEDS ORDERED: FUROSEMIDE 20 MG TABLET PO ONE (18:45)
--- NOTE | 2016-12-06 19:00 | NUR ---
Shift Summary Patient alert and oriented x1 this shift. Patient confused, asked questions about the people walking about in the halls and tried to get up from chair without assist to clean the room today. Had to be reminded by staff what time of the day it was multiple times as well. Patient up to recliner for part of day. Tolerated nectar thick liquids and mechanical soft diet well today with good appetite. Low output, see previous notes. No BM today. IV infusing as ordered through left hand IV site. On 2L oxygen. Blood sugars checked frequently, see other charting. Patient was hyperglycemic today. Visitors present at bedside today.
--- NOTE | 2016-12-06 21:40 | NUR ---
BLOOD SUGARS: CALLED DR. ALCAZAR REGARDING PT'S BLOOD SUGAR OF 305. DR. ALCAZAR TO GIVE PT HIS LONG ACTING BLOOD SUGAR TONIGHT AND ONLY 3 UNITS NOVOLOG AND TO CONTINUE MONITORING PTS BLOOD SUGARS Q2HRS TONIGHT. IF PTS BLOOD SUGARS ARE TOO HIGH OR TOO LOW, TO CALL TELE-HOSPITALIST PATRICIO.
[2016-12-06] MEDS: ATORVASTATIN 40 MG TABLET PO SCH (21:45)
[2016-12-06] MEDS: INSULIN DETEMIR 100 UNIT/ML SQ SCH (22:02)
--- NOTE | 2016-12-06 22:25 | NUR ---
LOW BLOOD PRESSURE: PTS BP WAS 97/53. SENT TIGER TEXT, HEARD BACK FROM DR. BARROSO. DOCTOR SAID TO HOLD LOPRESSOR. MED HELD.
[2016-12-07] VITALS (69 sets, daily range): BP systolic 81–150; BP diastolic 45–75; PULSE 91–157; RESP 18–40; TEMP 98.2–100.2; O2SAT 26–99
[2016-12-07] MEDS ORDERED: DILTIAZEM 25mg/5ml INJECTION IV ONE (01:00)
[2016-12-07] MEDS ORDERED: DILTIAZEM 125 MG in NORMAL SALINE 125 ML IV SCH ×2 (01:00→03:16)
[2016-12-07] MEDS ORDERED: NORMAL SALINE 500 ML IV ONE (01:15)
--- NOTE | 2016-12-07 01:20 | NUR ---
INCREASED HEART RATE: SENT TIGER TEXT REGARDING PT'S INCREASED HEART RATE ([address] BARROSO RETURNED MY CALL, WANTS AN EKG STAT. PLACED ORDER AND CALLED LAB. YAZMIN, CHARGE NURSE, REMAINED WITH PATIENT. EKG PERFORMED, EKG PAPERWORK FAXED TO DR. BARROSO. DR. BARROSO CALLED ME TO HAVE PT MOVED TO ICU AND PLACED ON A CARDIZEM DRIP. CONTACTED ADITHYA, CAM MILLING MACHINE OPERATOR, TO GIVE REPORT ON PT.
--- NOTE | 2016-12-07 01:24 | NUR ---
TRANSFER TO ICU: PT LEFT WITH JAMAL HAJI, TO ICU, BED #2 AT 1:22 AM. FAMILY CALLED, SPOKE TO DAUGHTER RHEA. RHEA WILL NOTIFY REST OF FAMILY.
[2016-12-07] MEDS: ONDANSETRON 4mg/2ml INJECTION IV PRN (01:46)
--- NOTE | 2016-12-07 02:00 | NUR ---
Received To CCU 2 at approx 0120. NS bolus previously started by this RN, Cardizem bolus admin and drip initiated, will titrate as indicated, pt resting in bed in no acute distress with HR 140s-150s. Admin Zofran for mild nausea. Will continue to monitor.
[2016-12-07] MEDS: PIPERACILLIN/TAZOBACTAM 3.375 G in NORMAL SALINE 100 ML IV SCH ×4 (03:35→21:40)
[2016-12-07] MEDS ORDERED: AMIODARONE 150 MG in NORMAL SALINE 100 ML IV ONE (04:15)
[2016-12-07] MEDS ORDERED: AMIODARONE 900 MG in NORMAL SALINE 500 ML IV SCH ×2 (04:15→07:15)
[2016-12-07] MEDS: OMEPRAZOLE 20 MG CAPSULE PO SCH (06:36)
[2016-12-07 06:48] LABS: HCT - HEMATOCRIT 34.6 % (41-53); HGB - HEMOGLOBIN 10.6 GM/DL (13.5-17.5); MEAN CORPUSCULAR HGB 26.8 UUG (26-34); MEAN CORPUSCULAR HGB CONC(MCHC 30.6 GM/DL (31-37); MEAN CORPUSCULAR VOLUME 87.6 UM3 (80-100); MEAN PLATELET VOLUME 10.5 UM3 (9.4-12.4); RED BLOOD COUNT 3.95 M/MM3 (4.50-5.90); WBC - WHITE BLOOD COUNT 18.6 T/MM3 (4.5-11.0)
[2016-12-07 06:55] LABS: ALBUMIN 2.9 G/DL (3.5-5.0); ANION GAP 11 MEQ/L (5-15); BUN/CREATININE RATIO 21 RATIO (6-26); CALCIUM 8.2 MG/DL (8.4-10.2); CHLORIDE 105 MEQ/L (98-107); CO2 - CARBON DIOXIDE 26 MEQ/L (22-30); CREATININE 1.2 MG/DL (0.8-1.5); GLOMERULAR FILTRATION RATE 57; GLUCOSE 171 MG/DL (75-110); MAGNESIUM 1.7 MG/DL (1.6-2.3); PHOSPHORUS 4.3 MG/DL (2.5-4.5); POTASSIUM 3.8 MEQ/L (3.6-5); SODIUM 142 MEQ/L (134-144)
[2016-12-07 07:09] LABS: BAND NEUTROPHILS # 0.4 T/MM3; EOSINOPHILS # (MANUAL) 0.6 T/MM3 (0-0.5); LYMPHOCYTES # (MANUAL) 1.7 T/MM3 (1-4.8); MONOCYTES # (MANUAL) 0.7 T/MM3 (0-0.8); NEUTROPHILS #(MANUAL)-ABSOLUTE 15.3 T/MM3 (1.8-7.7); TOTAL CELLS COUNTED 100 %
[2016-12-07] MEDS: INSULIN ASPART 100 UNIT/ML SQ SCH (08:00)
--- NOTE | 2016-12-07 08:00 | NUR ---
SINUS RHYTHM Patient converted to NSR [address] Haskins was in the room visiting with him. He states that the slight chest tightness that he was feeling while in a fib is resolved. Dr Haskins is contacting cardiology and has ordered a TSH as the patient is on an Amiodarone drip. The patient was made aware that he converted back to a normal rhythm. Blood pressure continues in the low 90's systolic on the first check after change in rhythm. Continue to monitor.
--- NOTE | 2016-12-07 08:16 | PNPDOC ---
Subjective Date DATE: 12/07/16 TIME: 08:01 Subjective The patient was transferred to CCU last night secondary to A. fib with rapid ventricular response. He was initially placed on Cardizem drip, but this caused hypotension and it was discontinued. He was then started on amiodarone and has converted to sinus rhythm this morning. Prior to converting to sinus rhythm he felt heavy in his chest and a little bit short of breath. He denied any nausea or pain. He is urinating okay. He is having some cough. Last bowel movement was a couple of days ago. Objective Vital Signs Vital signs Vital Signs Date Time Temp Pulse Resp B/P Pulse Ox O2 Delivery O2 Flow Rate FiO2 12/07/16 07:52 92 12/07/16 07:40 16 96 12/07/16 06:45 83/48 Nasal Cannula 3.00 12/07/16 04:15 99.3 GEN-alert, oriented, no acute distress HEENT-sclera anicteric, oropharynx is moist NECK-supple CV-tachycardic rate with a regular rhythm, he has since converted to sinus rhythm CHEST-coarse breath sounds especially in the right base, decreased breath sounds in the left base ABD-soft, nontender, nondistended with positive bowel sounds -no Morin EXT-+ ankle edema, mild erythema of bilateral ankles which does not appear to be cellulitis, mild petechiae in the lower legs bilaterally NEURO-no focal deficits SKIN-warm and dry (mild erythema of bilateral ankles which does not appear to be cellulitis, mild petechiae in the lower legs bilaterally) Height (Feet): 6 Height (Inches): 1.00 Weight (Kilograms): 79.700 Laboratory Laboratory Laboratory Tests 12/05/16 18:12 12/06/16 05:22 12/07/16 06:24 Laboratory Tests 12/05/16 18:12 12/06/16 05:21 12/07/16 06:24 Microbiology Microbiology Microbiology Date/Time Source Procedure Growth Status 12/05/16 18:19 Peripheral/Iv Start Blood Culture - Preliminary NO GROWTH AFTER 24 HOURS Resulted 12/05/16 18:12 Peripheral/Iv Start Blood Culture - Preliminary NO GROWTH AFTER 24 HOURS Resulted Radiology Chest x-ray this morning is pending Assessment & Plan Problems: (1) Hypoglycemia due to insulin Status: Acute Assessment & Plan: per report his sugars have been quite labile. He is on interesting regimen very high dose of fast acting insulin in the morning with lower doses meals, and only a small dose relatively speaking of long-acting insulin. I would very much like to hear from the access clerk as to the dosing history. For tonight we'll not give any further insulin nor any more glucose 80 minutes and monitor levels. I would anticipate resuming a long- acting dose of insulin in the morning along with a change in balance perhaps 50 % long-acting and 50% short acting divided equally between meals. however if this has failed past, been very helpful to get that history from his diabetes doctor (2) Aspiration of vomit Status: Acute Qualifiers: Encounter type: initial encounter Qualified Codes: T17.910A - Gastric contents in respiratory tract, part unspecified causing asphyxiation, initial encounter Assessment & Plan: no hypoxia, I think should followed for now, no further antibiotics were scheduled basis. Repeat evaluation in the morning (3) Type II diabetes mellitus, uncontrolled Status: Acute Qualifiers: Diabetes mellitus complication status: with hypoglycemia Assessment & Plan: no further insulin or sugar tonight, follow glucose levels tonight, seems like we should try basal/bolus at 50/50 ratios, skewed much in favor of AM humalog. 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 (6) Diabetic gastroparesis Status: Chronic (7) HTN (hypertension) Status: Chronic (8) Elevated lactic acid level Status: Acute Assessment & Plan: seems out of provportion to overall presentation, I dont think septic. Aspiration event so got a dose of rocephin but not convinced in fected and not an infiltrate on 1 view CXR Assessment Impression and plan A. fib with rapid ventricular response converted to sinus rhythm on amiodarone. Check echocardiogram, TSH and consult cardiology. Obtain EKG postconversion. Diabetes mellitus with labile blood sugars-normal Levemir was resumed last night. Will see how well he eats this morning and decide on insulin dosages been. Consult Dr. Eric to see the patient tomorrow. Severe sepsis-likely secondary to aspiration pneumonia [place] aspiration pneumonia with hypoxia-continue Zosyn, recheck chest x-ray today Acute hypoxic respiratory failure-continue antibiotics, breathing treatments, supplemental oxygen, incentive spirometer Hypertension-currently with hypotension, likely related to Cardizem overnight. Hold metoprolol and losartan if blood pressure remains low. History of gastroparesis-monitor for recurrence of nausea or vomiting Coronary artery disease-continue Plavix and aspirin and statin Questionable CHF-we'll obtain echocardiogram tomorrow. Await chest x-ray. May need to hold furosemide. Possible depression and reported history of hallucinations-continue Seroquel and Lexapro History of CVA with left visual field deficit Mild elevation in creatinine and BUN this morning-recheck tomorrow. Greater than 40 minutes of critical care time spent seeing and evaluating the patient. DVT Prophylaxis: SCD'S Code Status Do Not Resuscitate Hospital Course Summary Disclaimer The hospital course summary below is not to be considered part of the above Progress Note. Hospital Course Summary 12/06/2016-Dr. Haskins-I have reviewed the history and physical Above dictated by Dr. Sams. I have independently examined the patient and taken a history. The patient was seen this morning alone in his room. He does have some memory difficulties, and this limits history taking. Chief complaint last night was vomiting, aspiration and severe hypoglycemia History of present illness: The patient is a very pleasant 89-year-old male who lives in a [facility]. He states he's had diabetes for at least 50 years. Blood sugars have been labile. He states he felt terrible yesterday and was vomiting. The paramedics thought he had likely aspirated and he agrees. He states he has some cough and mild shortness of breath, but overall feels much better. He denies any nausea or vomiting now. He does feel hungry. He denies any pain anywhere including abdominal pain. He has had no recent diarrhea. He has a fairly unusual insulin regimen and is on 7 units of Levemir at at bedtime, 45 units of NovoLog with breakfast, 15 units of NovoLog with lunch, and 8 units of NovoLog with supper. He reportedly eats a large amount for breakfast and then much smaller amounts for lunch and supper. He admits that he really likes to drink apple juice at breakfast time. Past medical history, family history, social history, and review of systems are difficult to obtain secondary to the patient's memory issues Last night he was admitted and placed on D5 half-normal for hypoglycemia. He was given Rocephin 1 in the emergency room. Overnight he developed a fever and hypoxia. Zosyn was added for possible aspiration pneumonia. He is currently receiving Accu-Cheks hourly. He is on low-dose sliding scale insulin. He received 15 units of Levemir this morning and 5 units of NovoLog with breakfast (which was clear liquids). Lab today shows white count is 24.8 up from 8.4. Bands are 15%. Neutrophils 78% . Hemoglobin 10.7 down from 12.4, likely dilutional. Platelets are normal. Basic metabolic is normal other than blood sugar of 361. On admission lactate was elevated at 2.8. Last lactate was normal. Her enzymes and troponin were normal on admission. Physical exam Blood pressure is 126/57, heart rate 86, most recent temp 96.6 orally. MAXIMUM TEMPERATURE 101, O2 sat 96% on 2 L GEN-alert, no acute distress HEENT-sclera anicteric, oropharynx is moist NECK-supple, no JVD CV-regular rate and rhythm CHEST-coarse breath sounds bilaterally, no wheezing ABD-soft, nontender, nondistended with positive bowel sounds -no Morin EXT-trace edema NEURO-no focal deficits, some memory impairment SKIN-warm and dry and without rashes Chest x-ray yesterday on my read shows a possible basilar infiltrate on lateral view , no cardiomegaly or pulmonary edema. Possible left pleural effusion. Official radiology report is pending Impression and plan Labile blood sugars-we'll check blood sugars pre-and post meals for now. Discontinue every hour blood sugars. Adjust insulin as needed. Severe sepsis-likely secondary to aspiration pneumonia Possible aspiration pneumonia with hypoxia-continue Zosyn Acute hypoxic respiratory failure-continue antibiotics, breathing treatments, supplemental oxygen, incentive spirometer Hypertension continue metoprolol as tolerated. Losartan can be continued if blood pressure is not low. History of gastroparesis-monitor for recurrence of nausea or vomiting Coronary artery disease-continue Plavix and aspirin and statin Questionable CHF hold furosemide for now, may need to restart tomorrow Possible depression and reported history of hallucinations-continue Seroquel and Lexapro- RASHEED HASKINS MD Dec 07, 2016 08:05
[2016-12-07] MEDS: LOSARTAN 50 MG TABLET PO SCH (09:00)
[2016-12-07] MEDS ORDERED: ALBUTEROL/IPRATROPIUM INHAL. 2.5mg-0.5mg/3ml Neb. AEROSOL SCH (09:00)
[2016-12-07] MEDS: ASPIRIN *EC* 81mg TABLET PO SCH (09:20)
[2016-12-07] MEDS: DOCUSATE SODIUM 100 MG CAPSULE PO SCH ×2 (09:20→20:49)
[2016-12-07] MEDS: POTASSIUM CHLORIDE 10 MEQ TABLET PO SCH ×2 (09:20→18:08)
[2016-12-07] MEDS: MULTIVITAMIN PO SCH (09:21)
[2016-12-07] MEDS: ESCITALOPRAM 10 MG TABLET PO SCH (09:21)
[2016-12-07] MEDS: IRON PO SCH (09:21)
[2016-12-07] MEDS: CALCIUM CARBONATE 600 MG TABLET PO SCH (09:21)
[2016-12-07] MEDS: CLOPIDOGREL 75 MG TABLET PO SCH (09:21)
[2016-12-07] MEDS: CYANOCOBALAMIN (B-12) 500mcg TABLET PO SCH (09:22)
[2016-12-07] MEDS: [UNRECOGNIZED DRUG - OTHER] MM SCH ×2 (09:23→20:51)
[2016-12-07] MEDS: SALINE NASAL SPRAY 45ml EA NOSTRIL SCH ×2 (09:27→20:50)
[2016-12-07] MEDS: ENOXAPARIN 40 MG/0.4 ML INJECTION SQ SCH (09:48)
--- NOTE | 2016-12-07 10:07 | DI ---
INDICATION: ITS.REASON: Likely aspiration PROCEDURE: CHEST 2-VIEWS UPRIGHT (PA \T\ LAT) Encounter: Initial COMPARISON: September 24, 2016 FINDINGS: Emphysema. Small pleural effusions are improved from the comparison study. No pneumothorax. Heart size and mediastinal contours are stable. Pulmonary vascularity appears normal. Impression: Small pleural effusions. .
[2016-12-07] MEDS ORDERED: INSULIN ASPART 100 UNIT/ML SQ ONE ×2 (10:30→13:15)
--- NOTE | 2016-12-07 10:33 | DI ---
Indication: ITS.REASON: pneumonia; possible aspiration PROCEDURE: CHEST 1 VIEW: Encounter: Initial Comparison: December 05, 2016 Findings: Enlarging small bilateral pleural effusions with worsening lower lobe airspace opacities. No pneumothorax. Heart size and mediastinal contours are stable. Impression: Increasing pleural effusions and worsening lower lobe airspace disease. .
[2016-12-07] MEDS: AMIODARONE IV SCH (10:45)
[2016-12-07] MEDS: NS IV SCH (10:45)
[2016-12-07] MEDS: ALBUTEROL/IPRATROPIUM INHAL. 2.5mg-0.5mg/3ml Neb. AEROSOL SCH ×3 (10:48→21:28)
--- NOTE | 2016-12-07 14:04 | NUR ---
SUMMARY Richie had a good morning, began to feel a little worse again at noon. He began to look flushed and fatigued. Was reassessed, and noted to have a low grade temp of 99.6, with flushing, and mild tachycardia. Remains in NSR/ST. Reported to Dr Haskins along with 2 hour post prandial blood sugar of [address] Haskins ordered 20 units of insulin with lunch (which he is eating late, after having a late breakfast). Dr Haskins reports that Eladia Kayla will visit for cardiology later today. Dr Eric is to be notified by nursing of consult tomorrow morning. Patient and family are aware of these consults. This nurse also spent time discussing the current diagnoses and treatments with the patient and family and answering questions. The patient attempted to have a bowel movement late this morning after initially declining Miralax. He then reported that it has been since approximately the 5th since he had a stool. Shift report has been given to JAMAL Roberts and we discussed Miralax administration when patient is finished with an afternoon nap. Two IV sites were discontinued (EMS site leaking, the second slightly red and puffy with Amiodarone stopped promptly upon recognition) and one new site was started and had positive blood return prior to moving Amiodarone to this site.
[2016-12-07] MEDS: ALBUTEROL/IPRATROPIUM INHAL. 2.5mg-0.5mg/3ml Neb. AEROSOL PRN (17:09)
[2016-12-07] MEDS ORDERED: INSULIN ASPART 100 UNIT/ML SQ SCH ×2 (17:15)
--- NOTE | 2016-12-07 17:50 | NUR ---
UP to recliner for supper, strong on feet, in sinus tachycardia.
[2016-12-07] MEDS: FUROSEMIDE 20 MG TABLET PO SCH (18:08)
--- NOTE | 2016-12-07 18:30 | NUR ---
Eats 75% of supper, insulin given after as ordered.
--- NOTE | 2016-12-07 20:46 | NUR ---
Post Void Scan Pt up to BSC to void. 50cc urine. Post void residual reveals 46cc via bladder scan.
[2016-12-07] MEDS: ATORVASTATIN 40 MG TABLET PO SCH (20:49)
[2016-12-07] MEDS: INSULIN DETEMIR 100 UNIT/ML SQ SCH (20:56)
--- NOTE | 2016-12-07 22:41 | CONSPD ---
Consultation Info Date DATE: 12/07/16 TIME: 22:40 Date of Consultation: Dec 07, 2016 Attending Physician: Attending: Dr. Haskins PCP: Dr. Almaguer. Reason for Consultation: Atrial fibrillation. HPI - Adult Date DATE: 12/07/16 TIME: 22:40 General Date of Admission Date of Admission: Dec 05, 2016 at 20:10 Chief Complaint: hypoglycemia History of Present Illness This is an 89 year old patient with a history of CAD, stroke, HTN, and DM. He is on Plavix and ASA. 05/[address] [facility] had a heart cath by Dr. Silverman: EF 70% , Ramus intermedius had small distal occlusion - no PCI, circ had 30-40% stenosis. the RCA and LAD had no significant stenosis. Pt is found sleeping on his side. He has a non productive cough. He is alert when awakened, able to provide short answers and does not understand all my question. He is not a good historian. RN reports he is slightly confused. He has a pile of blankets on and is asking for more. He lives in a retirement and has left sided weakness due to a history of stroke. He is admitted for hypoglycemia with a blood sugar down to 22. He received treatment and his blood sugars have improved. He vomited and per EMS they thought he aspirated. Lungs have crackles throughout. Yesterday he developed a fever treated with Tylenol. Early this morning about 1:30am he went into A-fib w RVR, HR 130's and was transferred to ICU and started on Cardizem drip titrated up to control HR but it caused his BP to drop and had to be stopped. Amiodarone bolus and drip was started about 1:47 and at 7:45 this am he converted to SR. During his A-fib episode he reported chest heaviness and some SOB. Dr. Rainey was consulted for his A-fib. Currently he denies chest pain or SOB. He is sleeping and coughing. 09/23/2016 echo: EF 67%. BAD. LVH. mild MR. mild AI, Aortic sclerosis vs very mild aortic stenosis with valve area 1.5 cm2. mild TR, PAP 34. Past Medical History Past Medical History Metabolic: diabetes (managed by Dr. Eric), hypertension Cardiac: CAD, NM Respiratory: pneumonia Neurological: CVA (with left sided weakness. ) Musculoskeletal: osteoarthritis Surgical History General: hernia, other Reproductive/: prostatectomy Current Medications Home Meds Reported Medications Magnesium Hydroxide (Milk of Magnesia) 400 Mg/5 Ml Oral.susp, 30 ML PO Q12H Y for CONSTIPATION 12/05/16 Polyethylene Glycol 3350 (Miralax) 17 Gm Powd.pack, 17 G PO DAILY Y for PRN ORDERS Take 17 Grams (1 capful), by mouth, once a day. 12/05/16 Albuterol Sulfate (Albuterol Sulfate) 2.5 Mg/0.5 Ml Vial.neb, 1 VIAL AEROSOL Q6H Y for SHORTNESS OF AIR 12/05/16 Quetiapine Fumarate (Quetiapine Fumarate) 25 Mg Tablet, 25 MG PO HS 12/05/16 Furosemide (Furosemide) 20 Mg Tablet, 20 MG PO BID 12/05/16 Potassium Chloride (Potassium Chloride) 10 Meq Tab.er.prt, 10 MEQ PO BID 12/05/16 Docusate Sodium (Docusate Sodium) 100 Mg Capsule, 100 MG PO BID 12/05/16 Ferrous Sulfate (Ferrous Sulfate) 325 Mg Tablet, 1 TAB PO DAILY BEST WITH FOOD. 12/05/16 Multivitamins with Iron (One Daily with Iron) 1 Each Tablet, 1 TAB PO DAILY 12/05/16 Dextrose/Dextrin/Maltose (Insta-Glucose Gel) 31 Gm Gel..gram., 1 DOSE PO PRN WITH BGM <40 12/05/16 Sodium Chloride (Saline Nasal [place]) 30 Ml [place], 1-2 SPRAY EA NOSTRIL BID 09/21/16 Propylene Glycol/Peg 400 (Systane Ultra 0.4-0.3% Eye Drp) 10 Ml Drops, 1 DROP BOTH EYES PRN Y for DRY EYES 09/21/16 Acetaminophen (Acetaminophen) 325 Mg Tablet, 650 MG PO Q4H Y for PAIN 09/21/16 Sodium Chloride (Saline Nasal [place]) 30 Ml [place], 1-2 SPRAY EA NOSTRIL PRN 09/21/16 Saliva Substitution Combo No.9 (Biotene) 1,000 Ml Mouthwash, 15 ML PO BID 09/21/16 Nut.tx.gluc.intoler,Lac-Fr,Soy (Glucerna) 237 Ml Liquid, 237 ML PO BID 09/21/16 Metoprolol Tartrate (Metoprolol Tartrate) 100 Mg Tablet, 100 MG PO BID 09/21/16 Omeprazole Magnesium (Prilosec) 10 Mg Suspdr.pkt, 20 MG PO DAILY 09/21/16 Insulin Detemir (Levemir) 100 Unit/Ml Inj, 7 UNIT SQ HS 09/21/16 Insulin Aspart (Novolog) 100 Unit/Ml Inj, 45 UNIT SQ WB 09/21/16 Insulin Aspart (Novolog) 100 Unit/Ml Inj, 8 UNIT SQ WS 09/21/16 Insulin Aspart (Novolog) 100 Unit/Ml Inj, 15 UNIT SQ WL 09/21/16 Cyanocobalamin (Vitamin B-12) (Vitamin B-12) 1,000 Mcg Tablet, 1000 MCG PO 1 MONTH 09/10/16 Losartan Potassium (Losartan Potassium) 25 Mg Tablet, 25 MG PO DAILY 09/10/16 Aspirin (Aspir 81) 81 Mg Tablet.dr, 81 MG PO DAILY 08/25/16 Calcium Carbonate (Calcium Carbonate) 600 Mg Tablet, 600 MG PO DAILY 08/25/16 Atorvastatin Calcium (Atorvastatin Calcium) 40 Mg Tablet, 40 MG PO HS 08/25/16 Clopidogrel Bisulfate (Clopidogrel) 75 Mg Tablet, 75 MG PO DAILY 08/25/16 Escitalopram Oxalate (Lexapro) 10 Mg Tablet, 10 MG PO DAILY 12/30/14 Allergies: Coded Allergies: No Known Drug Allergies (Verified Allergy, Unknown, 09/21/16) Family History Family History Comments Unable to obtain. Vaccines 07/08/16 07/08/16 Yes Social History Smoking Status: Former smoker (smoked a little in his 20s, none since) Does patient use chewing tobac: No Second Hand Exposure: No Substance Use Type: does not use Alcohol Intake: none Housing: retirement Current Occupational Status: retired Advance Directives: Yes DNR, Yes DPOA for Healthcare Only Review of Systems Unable to Obtain Comments Unable to obtain complete ROS due to pt's confusion. Constitutional: REPORTS: chills, fever, insomnia, weakness Eyes Vision: REPORTS: loss of visual varela, vision changes ENMT Hearing: REPORTS: hearing loss Cardiovascular chest pain Rhythm/Rate: palpitations Vascular: DENIES: pedal edema Pulmonary Respiratory: cough, dyspnea GI Upper Abdomen: dysphagia, nausea, vomiting Lower Abdomen: constipation Neurological General: weakness Psychiatric Psychiatric: other (confusion) Endocrine heat/cold intolerance Physical Exam General General Nourishment: thin Vital Signs Vital Signs Date Time Temp Pulse Resp B/P Pulse Ox O2 Delivery O2 Flow Rate FiO2 12/07/16 21:30 100 12/07/16 21:21 Nasal Cannula 3.00 12/07/16 21:21 16 97 12/07/16 16:30 105/50 12/07/16 15:00 99.4 Height (Feet): 6 Height (Inches): 1.00 Telemetry Rhythm: Sinus Rhythm Eyes Brief: NOT FOUND: scleral icterus ENMT Brief: FOUND: hearing intact, mucosa moist Neck Brief: FOUND: midline, NOT FOUND: JVD, carotid bruits Respiratory Brief: FOUND: rales (throughout) Cardiovascular (brief) Cardiac Brief: FOUND: murmur (3/6 HAYLEE), other, regular rate, regular rhythm, NOT FOUND: pedal edema Capillary Refill: <2 sec, other (pedal pulses not palable. ) Abdomen (brief) Abdominal Brief: FOUND: BS normo active x4, soft, NOT FOUND: tender Integumentary (brief) Integumentary Brief: FOUND: dry, pink, warm (reddish and warm skin) Neurologic (brief) Neurological Brief: FOUND: motor (left sided weakness. ) Neurologic RN Documented GCS Eye Opening: (4)Spontaneous Verbal: (5)Oriented Motor: (6)Obeys Commands Total: Psychiatric (brief) FOUND: alert, attentive, NOT FOUND: oriented (confused but able to answer some questions. ) Laboratory Laboratory Tests Test 12/05/16 23:16 12/06/16 02:15 12/06/16 03:05 12/06/16 04:16 Glucometer 303mg/dL 416mg/dL 382mg/dL Plasma Lactate 1.7MMOL/L Test 12/06/16 05:21 12/06/16 05:22 12/06/16 06:10 12/06/16 07:52 White Blood Count 24.8T/MM3 Red Blood Count 3.97M/MM3 Hemoglobin 10.9GM/DL Hematocrit 35.0% Mean Corpuscular Volume 88.2UM3 Mean Corpuscular Hemoglobin 27.5UUG Mean Corpuscular Hemoglobin Concent 31.1GM/DL RDW Standard Deviation 58.8FL Platelet Count 215T/MM3 Mean Platelet Volume 10.3UM3 Immature Granulocyte % (Auto) % Neutrophils (%) (Auto) % Lymphocytes (%) (Auto) % Monocytes (%) (Auto) % Eosinophils (%) (Auto) % Basophils (%) (Auto) % Absolute Immature Granulocyte (auto T/MM3 Absolute Neutrophils (auto) T/MM3 Absolute Lymphocytes (auto) T/MM3 Absolute Monocytes (auto) T/MM3 Absolute Eosinophils (auto) T/MM3 Absolute Basophils (auto) T/MM3 Neutrophils % (Manual) 78.0% Band Neutrophils % 15.0% Lymphocytes % (Manual) 5.0% Monocytes % (Manual) 2.0% Absolute Neutrophils (Manual) 19.3T/MM3 Band Neutrophils # 3.7T/MM3 Lymphocytes # (Manual) 1.2T/MM3 Monocytes # (Manual) 0.5T/MM3 Poikilocytosis 1+ Red Cell Morphology Comment Abnormal Turbidity < 20 Sodium Level 141MEQ/L Potassium Level 3.8MEQ/L Chloride Level 103MEQ/L Carbon Dioxide Level 26MEQ/L Anion Gap 12MEQ/L Blood Urea Nitrogen 18.0MG/DL Creatinine 0.9MG/DL Glomerular Filtration Rate Calc 79 BUN/Creatinine Ratio 20RATIO Glucose Level 361MG/DL Calculated Osmolality 288MOSM/KG Calcium Level 8.6MG/DL Icterus Index < 2 Chemistry Specimen Hemolysis < 15 Glucometer 317mg/dL 326mg/dL Test 12/06/16 08:49 12/06/16 10:49 12/06/16 11:56 12/06/16 13:50 Glucometer 316mg/dL 297mg/dL 265mg/dL Urine Collection Type Cleancatch-midstream Urine Color Yellow Urine Turbidity Clear Urine pH 5.0 Urine Specific [place] >=1.030 Urine Protein Negative Urine Glucose (UA) 1+ Urine Ketones 1+ Urine Blood Negative Urine Nitrite Negative Urine Bilirubin Negative Urine Urobilinogen 0.2EU/DL Urine Leukocyte Esterase Negative Urinalysis Comment Microscopic not ind. Test 12/06/16 14:09 12/06/16 16:41 12/06/16 20:25 12/06/16 23:19 Glucometer 230mg/dL 214mg/dL 305mg/dL 218mg/dL Test 12/07/16 01:10 12/07/16 04:13 12/07/16 05:59 12/07/16 06:24 Glucometer 182mg/dL 146mg/dL 180mg/dL White Blood Count 18.6T/MM3 Red Blood Count 3.95M/MM3 Hemoglobin 10.6GM/DL Hematocrit 34.6% Mean Corpuscular Volume 87.6UM3 Mean Corpuscular Hemoglobin 26.8UUG Mean Corpuscular Hemoglobin Concent 30.6GM/DL RDW Standard Deviation 60.1FL Platelet Count 209T/MM3 Mean Platelet Volume 10.5UM3 Neutrophils % (Manual) 82.0% Band Neutrophils % 2.0% Lymphocytes % (Manual) 9.0% Monocytes % (Manual) 4.0% Eosinophils % (Manual) 3.0% Absolute Neutrophils (Manual) 15.3T/MM3 Band Neutrophils # 0.4T/MM3 Lymphocytes # (Manual) 1.7T/MM3 Monocytes # (Manual) 0.7T/MM3 Eosinophils # (Manual) 0.6T/MM3 Red Cell Morphology Comment Normal Turbidity < 20 Sodium Level 142MEQ/L Potassium Level 3.8MEQ/L Chloride Level 105MEQ/L Carbon Dioxide Level 26MEQ/L Anion Gap 11MEQ/L Blood Urea Nitrogen 25.0MG/DL Creatinine 1.2MG/DL Glomerular Filtration Rate Calc 57 BUN/Creatinine Ratio 21RATIO Glucose Level 171MG/DL Calculated Osmolality 281MOSM/KG Calcium Level 8.2MG/DL Phosphorus Level 4.3MG/DL Magnesium Level 1.7MG/DL Icterus Index < 2 Troponin I 0.060ng/ml Albumin 2.9G/DL Chemistry Specimen Hemolysis 35 Test 12/07/16 06:29 12/07/16 12:42 12/07/16 15:38 12/07/16 20:38 Thyroid Stimulating Hormone (TSH) 2.25MIU/L Glucometer 320mg/dL 157mg/dL 139mg/dL EKG 12/05/2016 at 1848 ECG: SR, HR 83, LAD, LVH, NS ST T wave abnormality, QTc 464 12/07/2016 at 0050 ECG: A-fib, HR 153, LAD, NS ST T wave abnormality. QTc 396 12/07/2016 at 1102 ECG: SR, HR 99, LAD, LVH, NS ST T wave abnormality, QTc 455 Radiology 12/07/2016 CXR: heart size stable. increasing pleural effusions and lower lobe disease. Impression/Recommendation Problems: (1) Atrial fibrillation Status: Acute Assessment & Plan: New onset A-fib.:on 12/07 from 1:30 to 7:45 this am. converted on amiodarone into SR and remains in SR. Cont Amiodarone gtt tonight. consider changing to po in am. He has had 2 IV sites become slightly red due to the amiodarone. Monitor closely by RN. On Plavix and ASA for CAD or stroke. On Lovenox for prophylax. Not a good candidate for anticoagulation. TSH, Mag and K+ ok. No metoprolol - home med due to hypotension. (2) Cardiac murmur Status: Chronic Assessment & Plan: 09/23/2016 echo: EF 67%. BAD. LVH. mild MR. mild AI, Aortic sclerosis vs very mild aortic stenosis with valve area 1.5 cm2. mild TR, PAP 34. (3) Chest pain Assessment & Plan: Trop negative x3. ECG shows no acute ischemia. Given this pt 's age and debility with stroke and weakness we will recommedn conservative medical management. Cont ASA, Plavix -he had a heart cath in 05/2016 at [facility] by Dr. Silverman. 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 Cont atorvastatin. and BB. (4) ASCVD (arteriosclerotic cardiovascular disease) Status: Chronic Assessment & Plan: Cont ASA, Plavix, statin and BB. Unknown cardiac w/u. Unknown if he takes Plavix for CAD or stroke. (5) History of stroke with residual deficit Status: Chronic Assessment & Plan: Cont Plavix. (6) Type II diabetes mellitus, uncontrolled Status: Acute Assessment & Plan: Dr. Eric manages as outpt . to be consulted in am. (7) HTN (hypertension) Status: Chronic Assessment & Plan: Has been hypotensive. currently SBP 110's, HR 80's. Metoprolol and losartan home dose has been held on and 12/07. cont to hold. (8) Aspiration into airway Status: Acute Assessment & Plan: WBC 24 -> 18 elevated. Fevers. Cough. CXR: pleural effusions and airspace disease. O2 sat ok on room air. On ABX per Dr. Haskins. (9) Sepsis Status: Acute Impression Pt was not see by Dr Rainey. I discussed case with Dr. Amirani including labs, ECG, meds, VS and we have determined plan of care. SAMINA COMBS APRN Dec 07, 2016 22:41
[2016-12-08] VITALS (30 sets, daily range): BP systolic 85–148; BP diastolic 47–75; PULSE 75–107; RESP 10–33; TEMP 98.3–98.6; O2SAT 90–99
[2016-12-08] MEDS: PIPERACILLIN/TAZOBACTAM 3.375 G in NORMAL SALINE 100 ML IV SCH ×4 (02:29→21:57)
[2016-12-08] MEDS: ACETAMINOPHEN 325 MG TABLET PO PRN ×2 (02:29→21:57)
[2016-12-08 04:57] LABS: HCT - HEMATOCRIT 31.2 % (41-53); HGB - HEMOGLOBIN 9.9 GM/DL (13.5-17.5); MEAN CORPUSCULAR HGB 27.6 UUG (26-34); MEAN CORPUSCULAR HGB CONC(MCHC 31.7 GM/DL (31-37); MEAN CORPUSCULAR VOLUME 86.9 UM3 (80-100); MEAN PLATELET VOLUME 10.6 UM3 (9.4-12.4); RED BLOOD COUNT 3.59 M/MM3 (4.50-5.90); WBC - WHITE BLOOD COUNT 9.3 T/MM3 (4.5-11.0)
[2016-12-08 05:02] LABS: ALBUMIN 2.6 G/DL (3.5-5.0); ALKALINE PHOSPHATASE 80 U/L (38-126); ALT (SGPT) 28 U/L (21-72); ANION GAP 11 MEQ/L (5-15); AST (SGOT) 40 U/L (17-59); BUN/CREATININE RATIO 21 RATIO (6-26); CALCIUM 8.1 MG/DL (8.4-10.2); CHLORIDE 106 MEQ/L (98-107); CO2 - CARBON DIOXIDE 26 MEQ/L (22-30); CREATININE 1.2 MG/DL (0.8-1.5); GLOMERULAR FILTRATION RATE 57; GLUCOSE 109 MG/DL (75-110); MAGNESIUM 1.8 MG/DL (1.6-2.3); POTASSIUM 3.9 MEQ/L (3.6-5); SODIUM 143 MEQ/L (134-144); TOTAL PROTEIN 5.3 G/DL (6.3-8.2)
[2016-12-08] MEDS: NS IV SCH (05:40)
[2016-12-08] MEDS: AMIODARONE IV SCH (05:40)
[2016-12-08] MEDS: OMEPRAZOLE 20 MG CAPSULE PO SCH (05:54)
[2016-12-08 06:28] LABS: EOSINOPHILS # (MANUAL) 0.4 T/MM3 (0-0.5); LYMPHOCYTES # (MANUAL) 0.7 T/MM3 (1-4.8); MONOCYTES # (MANUAL) 0.4 T/MM3 (0-0.8); NEUTROPHILS #(MANUAL)-ABSOLUTE 7.8 T/MM3 (1.8-7.7); TOTAL CELLS COUNTED 100 %
[2016-12-08 06:29] LABS: BURR CELLS 1+; OVALOCYTES 1+; POIKILOCYTOSIS 1+
[2016-12-08] MEDS: ALBUTEROL/IPRATROPIUM INHAL. 2.5mg-0.5mg/3ml Neb. AEROSOL SCH ×4 (07:56→21:18)
--- NOTE | 2016-12-08 08:05 | STEVAL ---
Eval Subjective and History Date/Time of Eval DATE: 12/06/16 TIME: 13:27 Medical Diagnosis Hypoglycemia, aspiration of vomit Treatment Order: Assessment, Dev./Imp. tx plan Orientations: x 3, Alert, Cooperative Primary Complaint: hypoglycemia Pain: No (Pt. reported having no pain ) Date of Onset of Primary Com: Dysphagia Evaluation 12/06/16 Patient's Goals: Patient did not express goals Significant Past Medical Hx: CAD, OA, DM-2, Gastroparesis, HTN Medical History Form Reviewed: Yes Residence Type: Assisted Lives With: other Education Subject: Swallowing Strategies, Treatment Plan Person(s) Educated: Patient Instruction Understanding Demo: Pt. verbalizes understand Education Comment FURNACE MAINTENANCE educated patient on reasoning for evaluation. Patient was agreeable to evaluation. Subjective and History Comment: Upon arrival, patient was laying down in bed. Patient repositioned upright to 90 degrees for assessment. Patient had no acute c/o pain or fatigue. Patient agreed to having graduate clinician, Tanmay, provide therapy. Dysphagia Evaluation Evaluation Location: Bed Comment 90 Oral Peripheral Exam-facial: Facial Symmetry: No Impairment (WFL) Tongue Elevation: No Impairment (WFL) Tongue Lateralization: No Impairment (WFL) Tongue Protrusion: No Impairment (WFL) Tongue Retraction: No Impairment (WFL) Tongue Extension Midline: No Impairment (WFL) Labial Approximation: No Impairment (WFL) Intraoral Air Pressure: No Impairment (WFL) Volitional Cough: No Impairment (WFL) Palatal Elevation: No Impairment (WFL) Larynx Elevation During Swallo: No Impairment (WFL) Saliva Control: No Impairment (WFL) Dentition: Natural Lip Seal: Adequate-liquid, Adequate-pudding, Adequate-solid Lingual Manipulation: Adequate-liquid, Adequate-pudding, Adequate-solid Chewing: Adequate-pudding, Adequate-solid Oral cavity clear post swallow: Adequate-liquid, Adequate-pudding, Inadequate- solid (oral residue with kendra cracker ) Swallow initiated w/o delay: Adequate-liquid, Adequate-pudding, Adequate-solid Multiple swallows not needed: Adequate-liquid, Adequate-pudding, Adequate-solid Voice clear&dry post swallow: Adequate-liquid, Adequate-pudding, Adequate-solid No cough/throat clear: Inadequate-liquid (coughs following thin water trials ) , Adequate-pudding, Adequate-solid Assessment/Plan of Care Speech Therapy Impressions: An oral mechinism exam was first completed. Patient presented with natural dentition. Patient demonstrated no oral motor impairments. Laryngeal elevation was present. Adequate palatal elevation was observed while patient produced "ah". A dysphagia assessment was completed next. Patient was given trials of vanilla pudding, thin water, ice chips, and a kendra cracker. First the patient was given ice chips via spoon. Patient demonstrated adequate mastication with a timely swallow. Next, trials of thin water were presented via spoon, straw, and cup. Patient produced dry coughs X3 following the thin water trials with the straw. No other clinical s/s of aspiration were observed during this assessment. Then, the patient was given trials of pudding exhibiting a timely swallow and adequate mastication. The clinician trialed kendra crackers last. Oral residue was observed following the swallow and mastication was observed to be slow. With all consistencies and trials, patient produced a clear, dry vocal quality. It is recommended for the patient to have a mechanical soft diet and nectar thick liquids at this time. Corrections Unit Supervisor Goal: Pt will maintain nutrition and hydration of the least restrictive diet while demonstrating no s/s of aspiration for 3 consecutive trials. Short Term Goal: Pt will consume a mechanical soft consistency with nectar liquids without outward signs of aspiration at bedside in 3/3 of trials. Pt will demonstrate 4 out of 5 components necessary for a safe swallow as listed from the following: taking small sips/bites, alternating between solids/ liquids, sitting upright during meals, remaining upright following meals, utilizing no straw. ST Treatment Plan: Swallow Precautions, Modified Diet ST Treatment Plan Frequency: three times per week Treatment Plan Duration: one week Plan of Care Comment Recommended for patient to consume a mechanical soft diet with nectar thick liquids at this time. Recommended Diet: Mechanical Soft Diet [place] Thick Liquids No straws Date of Visit 12/06/16 Time Visit Began: 13:00 Time Visit Ended: 13:20 ST Assess/Plan of Care: ST Treatment Charge: Swallow Eval Minutes of Individual Therapy: TANMAY FREEMAN Dec 06, 2016 13:30
[2016-12-08] MEDS: POTASSIUM CHLORIDE 10 MEQ TABLET PO SCH ×2 (08:21→18:14)
[2016-12-08] MEDS: INSULIN ASPART 100 UNIT/ML SQ SCH ×2 (08:21→19:20)
[2016-12-08] MEDS: DOCUSATE SODIUM 100 MG CAPSULE PO SCH ×2 (08:22→21:57)
[2016-12-08] MEDS: ASPIRIN *EC* 81mg TABLET PO SCH (08:22)
[2016-12-08] MEDS: LOSARTAN 50 MG TABLET PO SCH (08:22)
[2016-12-08] MEDS: CALCIUM CARBONATE 600 MG TABLET PO SCH (08:23)
[2016-12-08] MEDS: ESCITALOPRAM 10 MG TABLET PO SCH (08:23)
[2016-12-08] MEDS: FUROSEMIDE 20 MG TABLET PO SCH ×2 (08:24→18:14)
[2016-12-08] MEDS: CLOPIDOGREL 75 MG TABLET PO SCH (08:24)
[2016-12-08] MEDS: IRON PO SCH (08:24)
[2016-12-08] MEDS: MULTIVITAMIN PO SCH (08:24)
[2016-12-08] MEDS: CYANOCOBALAMIN (B-12) 500mcg TABLET PO SCH (08:25)
--- NOTE | 2016-12-08 08:50 | NUR ---
DM screen Diet: [facility] soft, N-T liquid, CC 1800; Insulin: Novolo units wB; 15 units wL; 6 units w S; Levemir: 7 units HS. Patient was eating breakfast of Raisin Bran, milk, juice, eggs. He states he usually eats cereal, milk and juice at BF, and BF is his largest meal.
[2016-12-08] MEDS: ENOXAPARIN 40 MG/0.4 ML INJECTION SQ SCH (09:18)
[2016-12-08] MEDS: SALINE NASAL SPRAY 45ml EA NOSTRIL SCH ×2 (09:44→21:58)
[2016-12-08] MEDS: [UNRECOGNIZED DRUG - OTHER] MM SCH ×2 (09:48→21:58)
--- NOTE | 2016-12-08 10:38 | CONSF ---
DATE OF CONSULT 12/08/2016 REASON FOR CONSULTATION Hypoglycemia. HISTORY OF PRESENT ILLNESS Mr. Nunez is an 89-year-old male who had used an insulin pump to control his type 2 diabetes mellitus until being placed in intermediate care last year. His insulin is now administered by the intermediate. In the past two weeks, he has had increasing problems with controlling his glucose especially after breakfast. He has also has been having some mild hypoglycemia and his Levemir has been tapered. His most recent doses of insulin were NovoLog 45 units q.a.m., 8 units q. lunch, 15 units q.p.m. and Levemir 8 units q.h.s.. On the evening of admission he was found to have a glucose in the 30s that failed to respond to treatment with honey and crackers. EMS was called and found a glucose level of 22 when they arrived. After an ampule of D50 his blood sugar vj to 200 and was 122 upon arrival in the emergency room. Since arriving in the hospital he has had no further hypoglycemia. He did have an episode of emesis during transport and it was thought that he aspirated. He reports that he had a lot of coughing when he first got to the hospital but says that has pretty much cleared up by the time I saw him this morning. He developed atrial fibrillation with rapid ventricular response on 12/06/2016 which converted to sinus rhythm after starting on amiodarone. He denies any chest pain or palpitations today. ALLERGIES None known. PAST MEDICAL HISTORY Coronary artery disease. Type 2 diabetes mellitus. Hypertension. Gastroparesis. Osteoarthritis. He is status post hernia repair and prostatectomy. CURRENT MEDICATIONS Per EMR. FAMILY HISTORY Noncontributory. SOCIAL HISTORY No smoking tobacco except for briefly in his 20s. Alcohol intake none. REVIEW OF SYSTEMS Otherwise negative. PHYSICAL EXAMINATION VITAL SIGNS: Blood pressure 117/56, pulse 92, respirations 24. GENERAL: Well-developed, well-nourished elderly male. Alert, oriented, and in no acute distress, sitting up in a chair. HEENT: Unremarkable. NECK: Without thyromegaly or lymphadenopathy. LUNGS: Clear. HEART: Supraventricular beats in quadrigeminy with regular ventricular rate. ABDOMEN: Normal bowel sounds. EXTREMITIES: Without edema. NEUROLOGIC: Grossly normal. LAB Glucose has ranged from 122 on admission up to 416 while insulin was being held and down to 139 last night and 120 fasting this morning on his prior insulin schedule. BUN 25, creatinine 1.2, ALT 28, TSH 2.25. ASSESSMENT 1. Longstanding type 2 diabetes mellitus, in poor control. We should continue with his most recent insulin dosing which includes a taper of 1 unit of Levemir down to 7 units h.s. due to this most recent hypoglycemic episode. We will need to take care to treat him sparingly with correction insulin doses as these tend to cause him to go into hypoglycemia rather easily. 2. Hypoglycemia, resolved for now. Will need to follow him closely in the hospital since his diet here is better controlled than when he is at the intermediate where he reports the food has a higher carb count. 3. Atrial fibrillation, controlled with amiodarone. If he remains on this drug, we will need to follow his thyroid function as it frequently provokes hypothyroidism and hyperthyroidism. Thank you very much for asking me to assist you in caring for this gentleman once again. I will follow him along with you while he remains in the hospital. SUNNI
[2016-12-08] MEDS ORDERED: INSULIN ASPART 100 UNIT/ML SQ SCH ×2 (11:45→12:00)
--- NOTE | 2016-12-08 12:25 | STDAILYN ---
Discharge Note Date/Time DATE: 12/08/16 TIME: 12:23 Discharge From: Inpatient ST Discharge Destination: [facility] ICU Other Reasons for Discharge: Pt transferred to CCU 12/06/16 with atrial fib. Discharge Summary: SATURATOR OPERATOR checked with CCU to determine if new order was needed. Nursing reported that pt had been eating with no difficulty, voicing dry and no s/s of aspiration. DC pt from skilled speech therapy. Discharge Followup Comments: Nursing advised to contact speech therapy as needed. KO WING MS CCC-SATURATOR OPERATOR Dec 08, 2016 12:25
--- NOTE | 2016-12-08 12:47 | PNPDOC ---
[employer] 12/08/16 1233: Subjective Date DATE: 12/08/16 TIME: 12:30 Subjective Richie is sitting up in the recliner eating his peanut butter and jelly sandwich with a side of mashed potatoes and gravy. His daughter is at the bedside. He c/ o cough which is frequent and nonproductive. He denies chest pain, dyspnea or dizziness. Objective Vital Signs Vital signs Vital Signs 12/08/16 12/08/16 12/08/16 12/08/16 00:47 01:00 02:00 03:00 Pulse 83 84 86 90 Resp 10 25 27 25 B/P 85/47 102/51 105/59 113/56 Pulse Ox 95 96 97 96 12/08/16 12/08/16 12/08/16 12/08/16 04:00 04:00 07:52 07:56 Temp 98.6 Pulse 86 92 77 Resp 24 26 15 B/P 117/56 Pulse Ox 96 96 12/08/16 08:00 Resp 22 Telemetry Rhythm: Sinus Rhythm Height (Feet): 6 Height (Inches): 1.00 Weight (Kilograms): 82.500 General Alert, Orientated x 3, Cooperative ENMT (Brief) mucosa moist Neck (Brief) NOT FOUND: JVD, carotid bruits Respiratory (Brief) clear all varela, equal bilaterally, NOT FOUND: rales, wheezes Cardiovascular (Brief) murmur (3/6), pedal edema, regular rate, regular rhythm Abdomen (Brief) BS normo active x4, soft, NOT FOUND: tender Integumentary (Brief) dry, pink, warm Psychiatric (Brief) alert, oriented Laboratory Laboratory Laboratory Tests Test 12/06/16 13:50 12/06/16 14:09 12/06/16 16:41 12/06/16 20:25 Urine Collection Type Cleancatch-midstream Urine Color Yellow Urine Turbidity Clear Urine pH 5.0 Urine Specific [place] >=1.030 Urine Protein Negative Urine Glucose (UA) 1+ Urine Ketones 1+ Urine Blood Negative Urine Nitrite Negative Urine Bilirubin Negative Urine Urobilinogen 0.2EU/DL Urine Leukocyte Esterase Negative Urinalysis Comment Microscopic not ind. Glucometer 230mg/dL 214mg/dL 305mg/dL Test 12/06/16 23:19 12/07/16 01:10 12/07/16 04:13 12/07/16 05:59 Glucometer 218mg/dL 182mg/dL 146mg/dL 180mg/dL Test 12/07/16 06:24 12/07/16 06:29 12/07/16 12:42 12/07/16 15:38 White Blood Count 18.6T/MM3 Red Blood Count 3.95M/MM3 Hemoglobin 10.6GM/DL Hematocrit 34.6% Mean Corpuscular Volume 87.6UM3 Mean Corpuscular Hemoglobin 26.8UUG Mean Corpuscular Hemoglobin Concent 30.6GM/DL RDW Standard Deviation 60.1FL Platelet Count 209T/MM3 Mean Platelet Volume 10.5UM3 Neutrophils % (Manual) 82.0% Band Neutrophils % 2.0% Lymphocytes % (Manual) 9.0% Monocytes % (Manual) 4.0% Eosinophils % (Manual) 3.0% Absolute Neutrophils (Manual) 15.3T/MM3 Band Neutrophils # 0.4T/MM3 Lymphocytes # (Manual) 1.7T/MM3 Monocytes # (Manual) 0.7T/MM3 Eosinophils # (Manual) 0.6T/MM3 Red Cell Morphology Comment Normal Turbidity < 20 Sodium Level 142MEQ/L Potassium Level 3.8MEQ/L Chloride Level 105MEQ/L Carbon Dioxide Level 26MEQ/L Anion Gap 11MEQ/L Blood Urea Nitrogen 25.0MG/DL Creatinine 1.2MG/DL Glomerular Filtration Rate Calc 57 BUN/Creatinine Ratio 21RATIO Glucose Level 171MG/DL Calculated Osmolality 281MOSM/KG Calcium Level 8.2MG/DL Phosphorus Level 4.3MG/DL Magnesium Level 1.7MG/DL Icterus Index < 2 Troponin I 0.060ng/ml Albumin 2.9G/DL Chemistry Specimen Hemolysis 35 Thyroid Stimulating Hormone (TSH) 2.25MIU/L Glucometer 320mg/dL 157mg/dL Test 12/07/16 20:38 12/08/16 04:20 12/08/16 06:00 12/08/16 10:11 Glucometer 139mg/dL 120mg/dL 113mg/dL White Blood Count 9.3T/MM3 Red Blood Count 3.59M/MM3 Hemoglobin 9.9GM/DL Hematocrit 31.2% Mean Corpuscular Volume 86.9UM3 Mean Corpuscular Hemoglobin 27.6UUG Mean Corpuscular Hemoglobin Concent 31.7GM/DL RDW Standard Deviation 60.3FL Platelet Count 179T/MM3 Mean Platelet Volume 10.6UM3 Neutrophils % (Manual) 84.0% Lymphocytes % (Manual) 8.0% Monocytes % (Manual) 4.0% Eosinophils % (Manual) 4.0% Absolute Neutrophils (Manual) 7.8T/MM3 Lymphocytes # (Manual) 0.7T/MM3 Monocytes # (Manual) 0.4T/MM3 Eosinophils # (Manual) 0.4T/MM3 Poikilocytosis 1+ Ovalocytes 1+ [place] Cells 1+ Red Cell Morphology Comment Abnormal Turbidity < 20 Sodium Level 143MEQ/L Potassium Level 3.9MEQ/L Chloride Level 106MEQ/L Carbon Dioxide Level 26MEQ/L Anion Gap 11MEQ/L Blood Urea Nitrogen 25.0MG/DL Creatinine 1.2MG/DL Glomerular Filtration Rate Calc 57 BUN/Creatinine Ratio 21RATIO Glucose Level 109MG/DL Calculated Osmolality 280MOSM/KG Calcium Level 8.1MG/DL Magnesium Level 1.8MG/DL Total Bilirubin 1.00MG/DL Icterus Index < 2 Aspartate Amino Transf (AST/SGOT) 40U/L Alanine Aminotransferase (ALT/SGPT) 28U/L Alkaline Phosphatase 80U/L Total Protein 5.3G/DL Albumin 2.6G/DL Globulin 2.7G/DL Albumin/Globulin Ratio 1.0RATIO Chemistry Specimen Hemolysis 15 Laboratory Tests 12/08/16 04:20 Laboratory Tests 12/08/16 04:20 Medications Current Medications Ondansetron HCl 4 mg 4 mg Q6H PRN IV NAUSEA &/OR VOMITING Last administered on 12/07/16 01:46; Start 12/05/16 at 18:00 Ceftriaxone Sodium 1 g/Sodium Chloride 100 ml @ 100 mls/hr O ONCE IV Last administered on 12/05/16 19:34; Start 12/05/16 at 19:15; Stop 12/05/16 at 20:14; Status DC Dextrose/Sodium Chloride (D5-1/2 NS) 1,000 ml @ 70 mls/hr [id number] IV ; Start at 20:04; Stop 12/06/16 at 07:07; Status DC Ondansetron HCl (Zofran) 4 mg Q6H PRN IV NAUSEA &/OR VOMITING; Start 12/05/16 at 20:15; Stop 12/06/16 at 07:07; Status DC Senna/Docusate Sodium (Senna Plus) 1 tab BID PO Last administered on 12/05/16 22:00; Start 12/05/16 at 21:00; Stop 12/06/16 at 07:07; Status DC Albuterol (Proventil) 2.5 mg Q6H PRN AEROSOL SHORTNESS OF AIR; Start 12/05/16 at 20:15 Aspirin (Ecotrin) 81 mg DAILY PO Last administered on 12/08/16 08:22; Start at 09:00 Atorvastatin Calcium (LIPITOR 40 mg) 40 mg HS PO Last administered on 12/07/16 20:49; Start 12/05/16 at 22:00 Calcium Carbonate (Caltrate) 600 mg DAILY PO Last administered on 12/08/16 08: 23; Start 12/06/16 at 09:00 Clopidogrel Bisulfate (Plavix) 75 mg DAILY PO Last administered on 12/08/16 08 :24; Start 12/06/16 at 09:00 Cyanocobalamin (Vit. B-12) 1,000 mcg QAM PO Last administered on 12/08/16 08: 25; Start 12/06/16 at 09:00 Docusate Sodium (Colace) 100 mg BID PO Last administered on 12/08/16 08:22; Start 12/05/16 at 21:00 Escitalopram Oxalate (LEXAPRO 10mg) 10 mg DAILY PO Last administered on 08:23; Start 12/06/16 at 09:00 Metoprolol Tartrate (Lopressor) 100 mg BID PO Last administered on 12/08/16 08 :25; Start 12/05/16 at 21:00 Polyethylene Glycol (Miralax) 17 g DAILY PRN PO PRN ORDERS Last administered on 12/07/16 14:58; Start 12/05/16 at 20:15 Saliva Substitute (Biotene Dry Mouth Oral Rinse) 15 ml BID MM Last administered on 12/08/16 09:48; Start 12/05/16 at 21:00 Sodium Chloride (DEEP SEA Nasal [place]) 2 spray PRN EA NOSTRIL ; Start 12/05/16 at 20:15 Glucose (Glutose 15) 37.5 g PRN PO ; Start 12/05/16 at 20:15 Losartan Potassium (COZAAR 50 mg) 25 mg DAILY PO Last administered on 08:22; Start 12/06/16 at 09:00 Multivitamins/ Minerals (Theragran-H) 1 tab DAILY PO Last administered on 08:24; Start 12/06/16 at 09:00 Non-Formulary Medication 237 ml BID PO ; Start 12/05/16 at 21:00; Stop 12/06/16 at 06:13; Status DC Polyethyl Glycol/ Propylene Glycol (Systane Eye Drops) 1 drop PRN PRN BOTH EYES DRY EYES Last administered on 12/07/16 09:29; Start 12/05/16 at 20:15 Albuterol/ Ipratropium 3 ml 3 ml Q4HR PRN AEROSOL wheezing Last administered on 12/07/16 17:09; Start 12/05/16 at 20:15 Sodium Chloride (NS) 500 ml @ 500 mls/hr Q1H IV Last administered on 12/05/16 23:19; Start 12/05/16 at 23:15; Stop 12/06/16 at 01:17; Status DC Metoclopramide HCl (REGLAN Inj) 5 mg Q6HR PRN IV Last administered on 00:24; Start 12/06/16 at 00:15 Insulin Detemir 5 unit 5 unit O ONCE SQ Last administered on 12/06/16 00:26; Start 12/06/16 at 00:15; Stop 12/06/16 at 06:06; Status DC Piperacillin Sod/ Tazobactam Sod/ Sodium Chloride (Zosyn/NS) 100 ml @ 200 mls/ hr Q6HR IV Last administered on 12/08/16 09:18; Start 12/06/16 at 09:00 Haloperidol Lactate (Haldol 5 Mg/ml Inj) 1 mg Q6H PRN IV Last administered on 12/06/16 23:28; Start 12/06/16 at 03:30 Omeprazole (Prilosec) 20 mg ACB PO Last administered on 12/08/16 05:54; Start 12/06/16 at 06:30 Potassium Chloride (Kdur) 10 meq BIDBS PO Last administered on 12/08/16 08:21 ; Start 12/06/16 at 08:00 Dextrose (D50w) 25 ml PRN PRN IV HYPOGLYCEMIA; Start 12/06/16 at 07:00 Insulin Aspart SS PRN SQ Last administered on 12/06/16 22:03; Start 12/06/16 at 07:00; Stop 12/07/16 at 07:58; Status DC Sodium Chloride (Normal Saline IV) 1,000 ml @ 75 mls/hr [id number] IV Last administered on 12/06/16 19:57; Start 12/06/16 at 08:15; Stop 12/07/16 at 06:45; Status DC Insulin Detemir (Levemir) 7 unit HS SQ Last administered on 12/07/16 20:56; Start 12/06/16 at 22:00 Diltiazem HCl 5 mg 5 mg O ONCE IV Last administered on 12/07/16 01:11; Start 12/07/16 at 01:00; Stop 12/07/16 at 06:57; Status DC Sodium Chloride 500 ml @ 250 mls/hr Q2H ONCE IV Last administered on 12/07/16 01:07; Start 12/07/16 at 01:15; Stop 12/07/16 at 06:56; Status DC Diltiazem HCl 125 mg/Sodium Chloride 125 ml @ 0 mls/hr Q0M IV ; Start 12/07/16 at 03:16; Stop 12/07/16 at 07:43; Status DC Amiodarone HCl 150 mg/Sodium Chloride 103 ml @ 600 mls/hr NOW ONCE IV Last administered on 12/07/16 04:30; Start 12/07/16 at 04:15; Stop 12/07/16 at 06:55; Status DC Amiodarone HCl 900 mg/Sodium Chloride 518 ml @ 33.33 mls/ hr [id number] IV ; Start 12/07/16 at 07:15; Stop 12/07/16 at 10:45; Status DC Amiodarone HCl/ Sodium Chloride (Cordarone/NS) 500 ml @ 16.66 mls/ hr Q24H IV Last administered on 12/08/16 05:40; Start 12/07/16 at 10:45 Albuterol/ Ipratropium (Duoneb) 3 ml RTQID AEROSOL Last administered on 07:56; Start 12/07/16 at 11:00 Enoxaparin Sodium (Lovenox) 40 mg DAILY SQ Last administered on 12/08/16 09:18 ; Start 12/07/16 at 09:00 Furosemide (Lasix) 20 mg BID. PO Last administered on 12/08/16 08:24; Start at 17:00 Acetaminophen (Tylenol Regular Strength) 650 mg Q5H PRN PO DISCOMFORT Last administered on 12/08/16 02:29; Start 12/08/16 at 02:30 Insulin Aspart (Novolog) 7 unit WL SQ ; Start 12/08/16 at 12:00 Microbiology Microbiology Microbiology Date/Time Source Procedure Growth Status 12/05/16 18:19 Peripheral/Iv Start Blood Culture - Preliminary NO GROWTH AFTER 48 HOURS Resulted 12/05/16 18:12 Peripheral/Iv Start Blood Culture - Preliminary NO GROWTH AFTER 48 HOURS Resulted Assessment & Plan Problems: (1) Atrial fibrillation Status: Acute Assessment & Plan: New onset A-fib.:on 12/07 from 1:30 to 7:45 this am. converted on amiodarone into SR and remains in SR. Cont Amiodarone gtt tonight. consider changing to po in am. He has had 2 IV sites become slightly red due to the amiodarone. Monitor closely by RN. On Plavix and ASA for CAD or stroke. On Lovenox for prophylax. Not a good candidate for anticoagulation. TSH, Mag and K+ ok. No metoprolol - home med due to hypotension. (2) Cardiac murmur Status: Chronic Assessment & Plan: 09/23/2016 echo: EF 67%. BAD. LVH. mild MR. mild AI, Aortic sclerosis vs very mild aortic stenosis with valve area 1.5 cm2. mild TR, PAP 34. (3) Chest pain Assessment & Plan: Trop negative x3. ECG shows no acute ischemia. Given this pt 's age and debility with stroke and weakness we will recommedn conservative medical management. Cont ASA, Plavix -he had a heart cath in 05/[address] at [facility] by [address]. Silverman. 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 Cont atorvastatin. and BB. (4) ASCVD (arteriosclerotic cardiovascular disease) Status: Chronic Assessment & Plan: Cont ASA, Plavix, statin and BB. Unknown cardiac w/u. Unknown if he takes Plavix for CAD or stroke. (5) History of stroke with residual deficit Status: Chronic Assessment & Plan: Cont Plavix. (6) Type II diabetes mellitus, uncontrolled Status: Chronic Qualifiers: Diabetes mellitus complication status: with hyperglycemia Diabetes mellitus parts counterman insulin use: with parts counterman use Qualified Codes: E11.65 - Type 2 diabetes mellitus with hyperglycemia; Z79.4 - petroleum terminal plant operator (current) use of insulin Assessment & Plan: Dr. Eric manages as outpt . to be consulted in am. (7) HTN (hypertension) Status: Chronic Qualifiers: Hypertension type: essential hypertension Qualified Codes: I10 - Essential (primary) hypertension Assessment & Plan: Has been hypotensive. currently SBP 110's, HR 80's. Metoprolol and losartan home dose has been held on and 12/07. cont to hold. (8) Aspiration into airway Status: Acute Qualifiers: Encounter type: initial encounter Qualified Codes: T17.908A - Unspecified foreign body in respiratory tract, part unspecified causing other injury, initial encounter Assessment & Plan: WBC 24 -> 18 elevated. Fevers. Cough. CXR: pleural effusions and airspace disease. O2 sat ok on room air. On ABX per Dr. Haskins. (9) Sepsis Status: Acute Plan/Intensity of Service 12/07/16 New onset A-fib.:on 12/07 from 1:30 to 7:45 this am. converted on amiodarone into SR and remains in SR. Cont Amiodarone gtt tonight. consider changing to po in am. He has had 2 IV sites become slightly red due to the amiodarone. Monitor closely by RN. On Plavix and ASA for CAD or stroke. On Lovenox for prophylax. Not a good candidate for anticoagulation. TSH, Mag and K+ ok. No metoprolol - home med due to hypotension. Chest pain:Trop negative x3. ECG shows no acute ischemia. Given this pt's age and debility with stroke and weakness we will recommedn conservative medical management. Cont ASA, Plavix -he had a heart cath in 05/[address] [facility] by Dr. Silverman. 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 Cont atorvastatin. and BB. 12/08/16 Change Amiodarone from IV to PO.Not a good candidate for anticoagulation due to patient's age and vision loss making him a fall risk. VELASQUEZ MIX MD 12/10/16 1534: Assessment & Plan Plan/Intensity of Service After examining the patient I agree with the above assessment. I am involved in the formulation of the patient's plan of care. [employer] Dec 08, 2016 12:33 VELASQUEZ MIX MD Dec 10, 2016 15:34
[2016-12-08] MEDS: AMIODARONE 200 MG TABLET PO SCH (13:30)
--- NOTE | 2016-12-08 14:04 | NUR ---
CM IN ROOM TO VISIT PT. PT IS SLEEPING. CONTACT INFORMATION LEFT AT BEDSIDE AND WHITE BOARD WAS UPDATED.
--- NOTE | 2016-12-08 15:50 | NUR ---
BLOOD SUGAR ATE LUNCH LATE, SO BGM DONE AT 1515. BGM READS 25. IS AWAKE, ALERT, SKIN SL DIAPHORETIC. GRAPE FINA GIVEN. BGM REPEATED AT 1545, READS 43. THICKENED CRANBERRY FINA AND PUDDING GIVEN. LOOSE COUGH NOTED. SPO2 95 % WITH O2 1 L PER NC.
--- NOTE | 2016-12-08 15:58 | NUR ---
BGM 115. AWAKE, ALERT, SKIN WARM DRY.
[2016-12-08] MEDS: ALBUTEROL/IPRATROPIUM INHAL. 2.5mg-0.5mg/3ml Neb. AEROSOL PRN (17:51)
--- NOTE | 2016-12-08 18:25 | PNPDOC ---
Subjective Date DATE: 12/08/16 TIME: 18:14 Subjective Patient seen and examined in the ICU. Chart, notes, radiographs, consults reviewed from this past weekend. Mr. Nunez is up to a chair this evening eating supper. Earlier he had an episode of hypoglycemia following lunch. In reviewing with nursing staff, it seems that he only ate half of his lunch and received all of his mealtime insulin. His blood sugar did go back up by consuming juice and pudding. He has been coughing this morning and states that he is breathing better. Nursing states that he is down to 1 L of oxygen. He does express himself well this afternoon and appears to be his normal level of mentation Objective Vital Signs Vital signs Vital Signs 12/08/16 12/08/16 12/08/16 12/08/16 07:00 07:52 07:56 08:00 Pulse 84 77 Resp 28 15 22 B/P 134/68 Pulse Ox 98 96 O2 Delivery Nasal Cannula O2 Flow Rate 2.00 12/08/16 12/08/16 12/08/16 12/08/16 08:00 09:00 10:00 11:01 Temp 98.3 Pulse 75 84 78 80 Resp 18 22 21 23 B/P 131/62 122/75 89/54 118/56 Pulse Ox 98 98 99 98 O2 Delivery Nasal Cannula Nasal Cannula Nasal Cannula Nasal Cannula O2 Flow Rate 2.00 2.00 2.00 2.00 12/08/16 12/08/16 12/08/16 12/08/16 11:30 12:00 12:00 13:00 Pulse 82 78 77 Resp 15 23 29 B/P 129/71 120/59 Pulse Ox 97 96 O2 Delivery Nasal Cannula Nasal Cannula O2 Flow Rate 2.00 1.00 12/08/16 12/08/16 12/08/16 12/08/16 14:00 15:01 15:24 15:25 Pulse 79 90 92 Resp 23 27 28 B/P 113/56 135/67 Pulse Ox 95 91 90 O2 Delivery Nasal Cannula Nasal Cannula O2 Flow Rate 1.00 1.00 12/08/16 12/08/16 12/08/16 12/08/16 16:00 16:00 16:55 16:58 Pulse 90 88 86 Resp 28 28 B/P 146/70 Pulse Ox 94 91 O2 Delivery Nasal Cannula O2 Flow Rate 1.00 12/08/16 12/08/16 12/08/16 17:51 17:51 17:53 Pulse 87 87 Resp 28 Pulse Ox 97 Telemetry Rhythm: Sinus Rhythm (with PACs) Height (Feet): 6 Height (Inches): 1.00 Weight (Kilograms): 82.500 General General Appearance: Alert, Orientated x 3, Cooperative, No Acute Distress Neck (Brief) Neck Brief: NOT FOUND: JVD, adenopathy, carotid bruits Respiratory (Brief) Respiratory Brief: FOUND: rales (right lower lobe), NOT FOUND: clear all varela , wheezes Cardiovascular (Brief) Cardiac: FOUND: regular rate (approximately 100 beats a minute), regular rhythm (with occasional ectopy), NOT FOUND: gallop, murmur Abdomen (Brief) Abdominal: FOUND: BS normo active x4, soft, NOT FOUND: distended, hepatosplenomegaly, tender Extremities (Brief) Extremity : Side: Bilateral Extremity Finding: FOUND: edema (trace) Lymphatic (Brief) Lymphatic Brief: NOT FOUND: adenopathy, lymphedema Musculoskeletal (Brief) Musculoskeletal Brief: NOT FOUND: spasm, tenderness Integumentary (Brief) Integumentary: FOUND: dry, pink, warm, NOT FOUND: rash Neurologic (Brief) Neurologic: FOUND: cranial 2-12 intact, NOT FOUND: facial droop, ptosis Psychiatric (Brief) Psychiatric: FOUND: alert, attentive, normal affect, oriented Laboratory Laboratory Laboratory Tests 12/08/16 04:20 Laboratory Tests 12/08/16 04:20 Microbiology Microbiology Microbiology Date/Time Source Procedure Growth Status 12/05/16 18:19 Peripheral/Iv Start Blood Culture - Preliminary NO GROWTH AFTER 48 HOURS Resulted Radiology Chest x-ray demonstrating lower lobe infiltrates Assessment & Plan Problems: (1) Hypoglycemia due to insulin Status: Acute Assessment & Plan: per report his sugars have been quite labile. He is on interesting regimen very high dose of fast acting insulin in the morning with lower doses meals, and only a small dose relatively speaking of long-acting insulin. I would very much like to hear from the public utilities sales representative as to the dosing history. For tonight we'll not give any further insulin nor any more glucose 80 minutes and monitor levels. I would anticipate resuming a long- acting dose of insulin in the morning along with a change in balance perhaps 50 % long-acting and 50% short acting divided equally between meals. however if this has failed past, been very helpful to get that history from his diabetes doctor (2) Aspiration of vomit Status: Acute Qualifiers: Encounter type: initial encounter Qualified Codes: T17.910A - Gastric contents in respiratory tract, part unspecified causing asphyxiation, initial encounter Assessment & Plan: no hypoxia, I think should followed for now, no further antibiotics were scheduled basis. Repeat evaluation in the morning (3) Type II diabetes mellitus, uncontrolled Status: Acute Qualifiers: Diabetes mellitus complication status: with hypoglycemia Assessment & Plan: no further insulin or sugar tonight, follow glucose levels tonight, seems like we should try basal/bolus at 50/50 ratios, skewed much in favor of AM humalog. 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 (6) Diabetic gastroparesis Status: Chronic (7) HTN (hypertension) Status: Chronic (8) Elevated lactic acid level Status: Acute Assessment & Plan: seems out of provportion to overall presentation, I dont think septic. Aspiration event so got a dose of rocephin but not convinced in fected and not an infiltrate on 1 view CXR Assessment Impression and plan A. fib with rapid ventricular response converted to sinus rhythm on amiodarone. Check echocardiogram, TSH and consult cardiology. Obtain EKG postconversion. Diabetes mellitus with labile blood sugars-normal Levemir was resumed last night. Will see how well he eats this morning and decide on insulin dosages been. Consult Dr. Eric to see the patient tomorrow. Severe sepsis-likely secondary to aspiration pneumonia Slater aspiration pneumonia with hypoxia-continue Zosyn, recheck chest x-ray today Acute hypoxic respiratory failure-continue antibiotics, breathing treatments, supplemental oxygen, incentive spirometer Hypertension-currently with hypotension, likely related to Cardizem overnight. Hold metoprolol and losartan if blood pressure remains low. History of gastroparesis-monitor for recurrence of nausea or vomiting Coronary artery disease-continue Plavix and aspirin and statin Questionable CHF-we'll obtain echocardiogram tomorrow. Await chest x-ray. May need to hold furosemide. Possible depression and reported history of hallucinations-continue Seroquel and Lexapro History of CVA with left visual field deficit Mild elevation in creatinine and BUN this morning-recheck tomorrow. Greater than 40 minutes of critical care time spent seeing and evaluating the patient. Code Status Do Not Resuscitate Hospital Course Summary Disclaimer The hospital course summary below is not to be considered part of the above Progress Note. Hospital Course Summary 12/06/2016-Dr. Haskins-I have reviewed the history and physical Above dictated by Dr. Sams. I have independently examined the patient and taken a history. The patient was seen this morning alone in his room. He does have some memory difficulties, and this limits history taking. Chief complaint last night was vomiting, aspiration and severe hypoglycemia History of present illness: The patient is a very pleasant 89-year-old male who lives in a [facility]. He states he's had diabetes for at least 50 years. Blood sugars have been labile. He states he felt terrible yesterday and was vomiting. The paramedics thought he had likely aspirated and he agrees. He states he has some cough and mild shortness of breath, but overall feels much better. He denies any nausea or vomiting now. He does feel hungry. He denies any pain anywhere including abdominal pain. He has had no recent diarrhea. He has a fairly unusual insulin regimen and is on 7 units of Levemir at at bedtime, 45 units of NovoLog with breakfast, 15 units of NovoLog with lunch, and 8 units of NovoLog with supper. He reportedly eats a large amount for breakfast and then much smaller amounts for lunch and supper. He admits that he really likes to drink apple juice at breakfast time. Past medical history, family history, social history, and review of systems are difficult to obtain secondary to the patient's memory issues Last night he was admitted and placed on D5 half-normal for hypoglycemia. He was given Rocephin 1 in the emergency room. Overnight he developed a fever and hypoxia. Zosyn was added for possible aspiration pneumonia. He is currently receiving Accu-Cheks hourly. He is on low-dose sliding scale insulin. He received 15 units of Levemir this morning and 5 units of NovoLog with breakfast (which was clear liquids). Lab today shows white count is 24.8 up from 8.4. Bands are 15%. Neutrophils 78% . Hemoglobin 10.7 down from 12.4, likely dilutional. Platelets are normal. Basic metabolic is normal other than blood sugar of 361. On admission lactate was elevated at 2.8. Last lactate was normal. Her enzymes and troponin were normal on admission. Physical exam Blood pressure is 126/57, heart rate 86, most recent temp 96.6 orally. MAXIMUM TEMPERATURE 101, O2 sat 96% on 2 L GEN-alert, no acute distress HEENT-sclera anicteric, oropharynx is moist NECK-supple, no JVD CV-regular rate and rhythm CHEST-coarse breath sounds bilaterally, no wheezing ABD-soft, nontender, nondistended with positive bowel sounds -no Morin EXT-trace edema NEURO-no focal deficits, some memory impairment SKIN-warm and dry and without rashes Chest x-ray yesterday on my read shows a possible basilar infiltrate on lateral view , no cardiomegaly or pulmonary edema. Possible left pleural effusion. Official radiology report is pending Impression and plan Labile blood sugars-we'll check blood sugars pre-and post meals for now. Discontinue every hour blood sugars. Adjust insulin as needed. Severe sepsis-likely secondary to aspiration pneumonia Possible aspiration pneumonia with hypoxia-continue Zosyn Acute hypoxic respiratory failure-continue antibiotics, breathing treatments, supplemental oxygen, incentive spirometer Hypertension continue metoprolol as tolerated. Losartan can be continued if blood pressure is not low. History of gastroparesis-monitor for recurrence of nausea or vomiting Coronary artery disease-continue Plavix and aspirin and statin Questionable CHF hold furosemide for now, may need to restart tomorrow Possible depression and reported history of hallucinations-continue Seroquel and Lexapro- 12/08/2016: Mr. Nunez appears to be progressing nicely. Mildly reservation in moving him to the medical floor is that his blood sugars to drop significantly after lunch. He remained stable overnight, I'll transfer him tomorrow. He remains in normal sinus rhythm with frequent PACs and a heart rate of 100 bpm he denies chest pain and states that his breathing is better. JACKSON CUMMINGS DO Dec 08, 2016 18:21
[2016-12-08] MEDS: ATORVASTATIN 40 MG TABLET PO SCH (21:57)
[2016-12-08] MEDS: INSULIN DETEMIR 100 UNIT/ML SQ SCH (21:58)
--- NOTE | 2016-12-08 23:11 | NUR ---
STATUS PT IS ORIENTED TO PERSON ONLY. PT NEEDING TO BE REMINDED THAT HE NEEDED TO STAY IN BED. PT PICKING OFF HIS SPO2 PROB FREQUENTLY. O2 TURNED UP TO 2L FOR PT COMFORT.
[2016-12-09] VITALS (23 sets, daily range): BP systolic 96–187; BP diastolic 48–92; PULSE 82–101; RESP 18–27; TEMP 97.8–98.6; O2SAT 79–99
[2016-12-09] MEDS: PIPERACILLIN/TAZOBACTAM 3.375 G in NORMAL SALINE 100 ML IV SCH ×4 (03:38→21:15)
[2016-12-09 05:35] LABS: ALBUMIN 2.8 G/DL (3.5-5.0); ALKALINE PHOSPHATASE 102 U/L (38-126); ALT (SGPT) 45 U/L (21-72); ANION GAP 9 MEQ/L (5-15); AST (SGOT) 45 U/L (17-59); BUN/CREATININE RATIO 21 RATIO (6-26); CALCIUM 8.6 MG/DL (8.4-10.2); CHLORIDE 106 MEQ/L (98-107); CO2 - CARBON DIOXIDE 28 MEQ/L (22-30); GLOMERULAR FILTRATION RATE 70; GLUCOSE 215 MG/DL (75-110); HCT - HEMATOCRIT 33.6 % (41-53); HGB - HEMOGLOBIN 10.5 GM/DL (13.5-17.5); MEAN CORPUSCULAR HGB 27.4 UUG (26-34); MEAN CORPUSCULAR HGB CONC(MCHC 31.3 GM/DL (31-37); MEAN CORPUSCULAR VOLUME 87.7 UM3 (80-100); MEAN PLATELET VOLUME 10.3 UM3 (9.4-12.4); POTASSIUM 3.6 MEQ/L (3.6-5); RED BLOOD COUNT 3.83 M/MM3 (4.50-5.90); SODIUM 143 MEQ/L (134-144); TOTAL PROTEIN 5.5 G/DL (6.3-8.2); WBC - WHITE BLOOD COUNT 6.5 T/MM3 (4.5-11.0)
--- NOTE | 2016-12-09 06:15 | NUR ---
STATUS PT IS ORIENTED TO PERSON. PT DENIES PAIN, CHEST PAIN/DISCOMFORT, SOA OR NAUSEA. PT ATTEMPTED MULTIPLE TIMES TO GET OUT OF BED, PT REMINDED THAT HE WAS IN THE HOSPITAL. PT SLEPT OFF AND ON THROUGH THE NIGHT. PT STANDS AT BEDSIDE TO USE THE URINAL. VS CHARTED. PT REMAINS ON 2L
[2016-12-09 06:24] LABS: BAND NEUTROPHILS # 0.1 T/MM3; BASOPHILS # (MANUAL) 0.1 T/MM3 (0-0.2); EOSINOPHILS # (MANUAL) 0.7 T/MM3 (0-0.5); LYMPHOCYTES # (MANUAL) 1.2 T/MM3 (1-4.8); MONOCYTES # (MANUAL) 0.6 T/MM3 (0-0.8); NEUTROPHILS #(MANUAL)-ABSOLUTE 3.8 T/MM3 (1.8-7.7); TOTAL CELLS COUNTED 100 %
[2016-12-09] MEDS: OMEPRAZOLE 20 MG CAPSULE PO SCH (06:33)
[2016-12-09] MEDS: ALBUTEROL/IPRATROPIUM INHAL. 2.5mg-0.5mg/3ml Neb. AEROSOL SCH ×4 (06:44→19:27)
--- NOTE | 2016-12-09 08:21 | DI ---
Indication: ITS.REASON: aspiration PROCEDURE: CHEST 1 VIEW: Encounter: Initial Comparison: December 07, 2016 Findings: Worsening right lower lobe airspace consolidation with stable left basilar infiltrate. No pneumothorax. Small right effusion. Heart size and mediastinal contours are stable. Impression: Worsening right lower lobe consolidation. .
[2016-12-09] MEDS: FUROSEMIDE 20 MG TABLET PO SCH ×2 (08:33→18:15)
[2016-12-09] MEDS: POTASSIUM CHLORIDE 10 MEQ TABLET PO SCH ×2 (08:33→18:15)
[2016-12-09] MEDS: INSULIN ASPART 100 UNIT/ML SQ SCH ×4 (08:34→18:17)
--- NOTE | 2016-12-09 08:36 | PNPDOC ---
[employer] 12/09/16 0828: Subjective Date DATE: 12/09/16 TIME: 08:25 Subjective Richie is sitting up in his recliner eating breakfast this morning. He denies chest pain or pressure, palpitations or skipped heartbeats. dizziness or lightheadedness. Objective Vital Signs Vital signs Vital Signs 12/08/16 12/08/16 12/08/16 12/08/16 20:31 21:00 21:12 21:12 Temp 98.5 Pulse 97 95 100 Resp 21 24 20 B/P 148/70 131/62 Pulse Ox 97 98 95 O2 Delivery Nasal Cannula Nasal Cannula O2 Flow Rate 1.00 2.00 12/08/16 12/08/16 12/08/16 12/08/16 21:21 21:21 22:00 23:00 Pulse 94 97 93 Resp 33 23 B/P 132/72 125/60 Pulse Ox 94 92 O2 Delivery Nasal Cannula Nasal Cannula Nasal Cannula O2 Flow Rate 1.00 2.00 2.00 12/09/16 12/09/16 12/09/16 12/09/16 00:00 00:00 00:15 01:00 Temp 97.8 Pulse 91 88 99 Resp 24 B/P 112/54 123/61 Pulse Ox 96 95 O2 Delivery Nasal Cannula Nasal Cannula O2 Flow Rate 2.00 2.00 12/09/16 12/09/16 12/09/16 12/09/16 02:00 03:01 04:00 04:00 Temp 98.2 Pulse 87 85 91 94 Resp 21 22 B/P 121/60 96/48 159/77 Pulse Ox 96 97 96 O2 Delivery Nasal Cannula Nasal Cannula Nasal Cannula O2 Flow Rate 2.00 2.00 2.00 12/09/16 12/09/16 12/09/16 06:40 06:44 06:48 Pulse 88 91 Resp 17 Pulse Ox 98 Telemetry Rhythm: Sinus Rhythm (with PACs) Height (Feet): 6 Height (Inches): 1.00 Weight (Kilograms): 82.500 General Alert, Cooperative, No Acute Distress ENMT (Brief) mucosa moist Neck (Brief) NOT FOUND: JVD, carotid bruits Respiratory (Brief) clear all varela, equal bilaterally (diminished bases), NOT FOUND: rales, wheezes Cardiovascular (Brief) murmur (3/6), pedal edema, regular rate, regular rhythm Abdomen (Brief) BS normo active x4, soft Integumentary (Brief) dry, pink, warm Psychiatric (Brief) alert, attentive Laboratory Laboratory Laboratory Tests Test 12/07/16 12:42 12/07/16 15:38 12/07/16 20:38 12/08/16 04:20 Glucometer 320mg/dL 157mg/dL 139mg/dL White Blood Count 9.3T/MM3 Red Blood Count 3.59M/MM3 Hemoglobin 9.9GM/DL Hematocrit 31.2% Mean Corpuscular Volume 86.9UM3 Mean Corpuscular Hemoglobin 27.6UUG Mean Corpuscular Hemoglobin Concent 31.7GM/DL RDW Standard Deviation 60.3FL Platelet Count 179T/MM3 Mean Platelet Volume 10.6UM3 Neutrophils % (Manual) 84.0% Lymphocytes % (Manual) 8.0% Monocytes % (Manual) 4.0% Eosinophils % (Manual) 4.0% Absolute Neutrophils (Manual) 7.8T/MM3 Lymphocytes # (Manual) 0.7T/MM3 Monocytes # (Manual) 0.4T/MM3 Eosinophils # (Manual) 0.4T/MM3 Poikilocytosis 1+ Ovalocytes 1+ [place] Cells 1+ Red Cell Morphology Comment Abnormal Turbidity < 20 Sodium Level 143MEQ/L Potassium Level 3.9MEQ/L Chloride Level 106MEQ/L Carbon Dioxide Level 26MEQ/L Anion Gap 11MEQ/L Blood Urea Nitrogen 25.0MG/DL Creatinine 1.2MG/DL Glomerular Filtration Rate Calc 57 BUN/Creatinine Ratio 21RATIO Glucose Level 109MG/DL Calculated Osmolality 280MOSM/KG Calcium Level 8.1MG/DL Magnesium Level 1.8MG/DL Total Bilirubin 1.00MG/DL Icterus Index < 2 Aspartate Amino Transf (AST/SGOT) 40U/L Alanine Aminotransferase (ALT/SGPT) 28U/L Alkaline Phosphatase 80U/L Total Protein 5.3G/DL Albumin 2.6G/DL Globulin 2.7G/DL Albumin/Globulin Ratio 1.0RATIO Chemistry Specimen Hemolysis 15 Test 12/08/16 06:00 12/08/16 10:11 12/08/16 15:16 12/08/16 15:34 Glucometer 120mg/dL 113mg/dL 24mg/dL 43mg/dL Test 12/08/16 15:59 12/08/16 16:22 12/08/16 20:25 12/08/16 21:56 Glucometer 72mg/dL 118mg/dL 286mg/dL 237mg/dL Test 12/09/16 04:59 12/09/16 06:38 White Blood Count 6.5T/MM3 Red Blood Count 3.83M/MM3 Hemoglobin 10.5GM/DL Hematocrit 33.6% Mean Corpuscular Volume 87.7UM3 Mean Corpuscular Hemoglobin 27.4UUG Mean Corpuscular Hemoglobin Concent 31.3GM/DL RDW Standard Deviation 60.8FL Platelet Count 203T/MM3 Mean Platelet Volume 10.3UM3 Neutrophils % (Manual) 58.0% Band Neutrophils % 1.0% Lymphocytes % (Manual) 19.0% Monocytes % (Manual) 9.0% Eosinophils % (Manual) 11.0% Basophils % (Manual) 2.0% Absolute Neutrophils (Manual) 3.8T/MM3 Band Neutrophils # 0.1T/MM3 Lymphocytes # (Manual) 1.2T/MM3 Monocytes # (Manual) 0.6T/MM3 Eosinophils # (Manual) 0.7T/MM3 Basophils # (Manual) 0.1T/MM3 Red Cell Morphology Comment Normal Turbidity < 20 Sodium Level 143MEQ/L Potassium Level 3.6MEQ/L Chloride Level 106MEQ/L Carbon Dioxide Level 28MEQ/L Anion Gap 9MEQ/L Blood Urea Nitrogen 21.0MG/DL Creatinine 1.0MG/DL Glomerular Filtration Rate Calc 70 BUN/Creatinine Ratio 21RATIO Glucose Level 215MG/DL Calculated Osmolality 284MOSM/KG Calcium Level 8.6MG/DL Total Bilirubin 0.90MG/DL Icterus Index < 2 Aspartate Amino Transf (AST/SGOT) 45U/L Alanine Aminotransferase (ALT/SGPT) 45U/L Alkaline Phosphatase 102U/L Total Protein 5.5G/DL Albumin 2.8G/DL Globulin 2.7G/DL Albumin/Globulin Ratio 1.0RATIO Chemistry Specimen Hemolysis < 15 Glucometer 226mg/dL Laboratory Tests 12/09/16 04:59 Laboratory Tests 12/09/16 04:59 Medications Current Medications Ondansetron HCl 4 mg 4 mg Q6H PRN IV NAUSEA &/OR VOMITING Last administered on 12/07/16 01:46; Start 12/05/16 at 18:00 Ceftriaxone Sodium 1 g/Sodium Chloride 100 ml @ 100 mls/hr O ONCE IV Last administered on 12/05/16 19:34; Start 12/05/16 at 19:15; Stop 12/05/16 at 20:14; Status DC Dextrose/Sodium Chloride (D5-1/2 NS) 1,000 ml @ 70 mls/hr [id number] IV ; Start at 20:04; Stop 12/06/16 at 07:07; Status DC Ondansetron HCl (Zofran) 4 mg Q6H PRN IV NAUSEA &/OR VOMITING; Start 12/05/16 at 20:15; Stop 12/06/16 at 07:07; Status DC Senna/Docusate Sodium (Senna Plus) 1 tab BID PO Last administered on 12/05/16 22:00; Start 12/05/16 at 21:00; Stop 12/06/16 at 07:07; Status DC Albuterol (Proventil) 2.5 mg Q6H PRN AEROSOL SHORTNESS OF AIR; Start 12/05/16 at 20:15 Aspirin (Ecotrin) 81 mg DAILY PO Last administered on 12/08/16 08:22; Start at 09:00 Atorvastatin Calcium (LIPITOR 40 mg) 40 mg HS PO Last administered on 21:57; Start 12/05/16 at 22:00 Calcium Carbonate (Caltrate) 600 mg DAILY PO Last administered on 12/08/16 08: 23; Start 12/06/16 at 09:00 Clopidogrel Bisulfate (Plavix) 75 mg DAILY PO Last administered on 12/08/16 08 :24; Start 12/06/16 at 09:00 Cyanocobalamin (Vit. B-12) 1,000 mcg QAM PO Last administered on 12/08/16 08: 25; Start 12/06/16 at 09:00 Docusate Sodium (Colace) 100 mg BID PO Last administered on 12/08/16 21:57; Start 12/05/16 at 21:00 Escitalopram Oxalate (LEXAPRO 10mg) 10 mg DAILY PO Last administered on 08:23; Start 12/06/16 at 09:00 Metoprolol Tartrate (Lopressor) 100 mg BID PO Last administered on 12/08/16 19 :46; Start 12/05/16 at 21:00 Polyethylene Glycol (Miralax) 17 g DAILY PRN PO PRN ORDERS Last administered on 12/07/16 14:58; Start 12/05/16 at 20:15 Saliva Substitute (Biotene Dry Mouth Oral Rinse) 15 ml BID MM Last administered on 12/08/16 21:58; Start 12/05/16 at 21:00 Sodium Chloride (DEEP SEA Nasal [place]) 2 spray PRN EA NOSTRIL ; Start 12/05/16 at 20:15 Glucose (Glutose 15) 37.5 g PRN PO ; Start 12/05/16 at 20:15 Losartan Potassium (COZAAR 50 mg) 25 mg DAILY PO Last administered on 08:22; Start 12/06/16 at 09:00 Multivitamins/ Minerals (Theragran-H) 1 tab DAILY PO Last administered on 08:24; Start 12/06/16 at 09:00 Non-Formulary Medication 237 ml BID PO ; Start 12/05/16 at 21:00; Stop 12/06/16 at 06:13; Status DC Polyethyl Glycol/ Propylene Glycol (Systane Eye Drops) 1 drop PRN PRN BOTH EYES DRY EYES Last administered on 12/07/16 09:29; Start 12/05/16 at 20:15 Albuterol/ Ipratropium 3 ml 3 ml Q4HR PRN AEROSOL wheezing Last administered on 12/08/16 17:51; Start 12/05/16 at 20:15 Sodium Chloride (NS) 500 ml @ 500 mls/hr Q1H IV Last administered on 12/05/16 23:19; Start 12/05/16 at 23:15; Stop 12/06/16 at 01:17; Status DC Metoclopramide HCl (REGLAN Inj) 5 mg Q6HR PRN IV Last administered on 00:24; Start 12/06/16 at 00:15 Insulin Detemir 5 unit 5 unit O ONCE SQ Last administered on 12/06/16 00:26; Start 12/06/16 at 00:15; Stop 12/06/16 at 06:06; Status DC Piperacillin Sod/ Tazobactam Sod/ Sodium Chloride (Zosyn/NS) 100 ml @ 200 mls/ hr Q6HR IV Last administered on 12/09/16 03:38; Start 12/06/16 at 09:00 Haloperidol Lactate (Haldol 5 Mg/ml Inj) 1 mg Q6H PRN IV Last administered on 12/06/16 23:28; Start 12/06/16 at 03:30 Omeprazole (Prilosec) 20 mg ACB PO Last administered on 12/09/16 06:33; Start 12/06/16 at 06:30 Potassium Chloride (Kdur) 10 meq BIDBS PO Last administered on 12/08/16 18:14 ; Start 12/06/16 at 08:00 Dextrose (D50w) 25 ml PRN PRN IV HYPOGLYCEMIA; Start 12/06/16 at 07:00 Insulin Aspart SS PRN SQ Last administered on 12/06/16 22:03; Start 12/06/16 at 07:00; Stop 12/07/16 at 07:58; Status DC Sodium Chloride (Normal Saline IV) 1,000 ml @ 75 mls/hr [id number] IV Last administered on 12/06/16 19:57; Start 12/06/16 at 08:15; Stop 12/07/16 at 06:45; Status DC Insulin Detemir (Levemir) 7 unit HS SQ Last administered on 12/08/16 21:58; Start 12/06/16 at 22:00 Diltiazem HCl 5 mg 5 mg O ONCE IV Last administered on 12/07/16 01:11; Start 12/07/16 at 01:00; Stop 12/07/16 at 06:57; Status DC Sodium Chloride 500 ml @ 250 mls/hr Q2H ONCE IV Last administered on 12/07/16 01:07; Start 12/07/16 at 01:15; Stop 12/07/16 at 06:56; Status DC Diltiazem HCl 125 mg/Sodium Chloride 125 ml @ 0 mls/hr Q0M IV ; Start 12/07/16 at 03:16; Stop 12/07/16 at 07:43; Status DC Amiodarone HCl 150 mg/Sodium Chloride 103 ml @ 600 mls/hr NOW ONCE IV Last administered on 12/07/16 04:30; Start 12/07/16 at 04:15; Stop 12/07/16 at 06:55; Status DC Amiodarone HCl 900 mg/Sodium Chloride 518 ml @ 33.33 mls/ hr [id number] IV ; Start 12/07/16 at 07:15; Stop 12/07/16 at 10:45; Status DC Amiodarone HCl/ Sodium Chloride (Cordarone/NS) 500 ml @ 16.66 mls/ hr Q24H IV Last administered on 12/08/16 05:40; Start 12/07/16 at 10:45; Stop 12/08/16 at 12:34; Status DC Albuterol/ Ipratropium (Duoneb) 3 ml RTQID AEROSOL Last administered on 06:44; Start 12/07/16 at 11:00 Enoxaparin Sodium (Lovenox) 40 mg DAILY SQ Last administered on 12/08/16 09:18 ; Start 12/07/16 at 09:00 Furosemide (Lasix) 20 mg BID. PO Last administered on 12/08/16 18:14; Start at 17:00 Acetaminophen (Tylenol Regular Strength) 650 mg Q5H PRN PO DISCOMFORT Last administered on 12/08/16 21:57; Start 12/08/16 at 02:30 Amiodarone HCl (Pacerone) 200 mg DAILY PO Last administered on 12/08/16 13:30 ; Start 12/08/16 at 12:45 Insulin Aspart (Novolog) 5 unit WL SQ ; Start 12/09/16 at 12:00 Radiology DATE OF EXAM: 12/09/16 ORDERING DOCTOR: JACKSON CUMMINGS DO TYPE OF EXAM: CHEST 1 VIEW REASON FOR EXAM: aspiration Indication: ITS.REASON: aspiration PROCEDURE: CHEST 1 VIEW: Encounter: Initial Comparison: December 07, 2016 Findings: Worsening right lower lobe airspace consolidation with stable left basilar infiltrate. No pneumothorax. Small right effusion. Heart size and mediastinal contours are stable. Impression: Worsening right lower lobe consolidation. Assessment & Plan Problems: (1) Atrial fibrillation Status: Acute Assessment & Plan: New onset A-fib.:on 12/07 from 1:30 to 7:45 this am. converted on amiodarone into SR and remains in SR. Cont Amiodarone po Monitor closely by RN. On Plavix and ASA for CAD or stroke. On Lovenox for prophylax. Not a good candidate for anticoagulation. TSH, Mag and K+ ok. (2) Cardiac murmur Status: Chronic Assessment & Plan: 09/23/2016 echo: EF 67%. BAD. LVH. mild MR. mild AI, Aortic sclerosis vs very mild aortic stenosis with valve area 1.5 cm2. mild TR, PAP 34. (3) Chest pain Assessment & Plan: Trop negative x3. ECG shows no acute ischemia. Given this pt 's age and debility with stroke and weakness we will recommedn conservative medical management. Cont ASA, Plavix -he had a heart cath in 05/[address] [facility] [address] Silverman. 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 Cont atorvastatin. and BB. (4) ASCVD (arteriosclerotic cardiovascular disease) Status: Chronic Assessment & Plan: Cont ASA, Plavix, statin and BB. Unknown cardiac w/u. Unknown if he takes Plavix for CAD or stroke. (5) History of stroke with residual deficit Status: Chronic Assessment & Plan: Cont Plavix. (6) Type II diabetes mellitus, uncontrolled Status: Chronic Qualifiers: Diabetes mellitus complication status: with hyperglycemia Diabetes mellitus long term care social worker insulin use: with [facility] use Qualified Codes: E11.65 - Type 2 diabetes mellitus with hyperglycemia; Z79.4 - adjunct faculty for medical terminology (current) use of insulin Assessment & Plan: Dr. Eric manages as outpt . to be consulted in am. (7) HTN (hypertension) Status: Chronic Qualifiers: Hypertension type: essential hypertension Qualified Codes: I10 - Essential (primary) hypertension Assessment & Plan: Has been hypotensive. currently SBP 110's, HR 80's. Metoprolol and losartan home dose has been held on and 12/07. (8) Aspiration into airway Status: Acute Qualifiers: Encounter type: initial encounter Qualified Codes: T17.908A - Unspecified foreign body in respiratory tract, part unspecified causing other injury, initial encounter Assessment & Plan: WBC 24 -> 18 elevated. Fevers. Cough. CXR: pleural effusions and airspace disease. O2 sat ok on room air. On ABX per Dr. Haskins. (9) Sepsis Status: Acute Plan/Intensity of Service 12/07/16 New onset A-fib.:on 12/07 from 1:30 to 7:45 this am. converted on amiodarone into SR and remains in SR. Cont Amiodarone gtt tonight. consider changing to po in am. He has had 2 IV sites become slightly red due to the amiodarone. Monitor closely by RN. On Plavix and ASA for CAD or stroke. On Lovenox for prophylax. Not a good candidate for anticoagulation. TSH, Mag and K+ ok. No metoprolol - home med due to hypotension. Chest pain:Trop negative x3. ECG shows no acute ischemia. Given this pt's age and debility with stroke and weakness we will recommedn conservative medical management. Cont ASA, Plavix -he had a heart cath in 05/[address] [facility] [address] Silverman. 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 Cont atorvastatin. and BB. 12/08/16 Change Amiodarone from IV to PO.Not a good candidate for anticoagulation due to patient's age and vision loss making him a fall risk. 12/09/16 Lasix 40mg IV given X1 today with Potassium 20meq X1. BMP tomorrow VELASQUEZ MIX MD 12/15/16 [id number]: Assessment & Plan Plan/Intensity of Service After examining the patient I agree with the above assessment. I am involved in the formulation of the patient's plan of care. [employer] Dec 09, 2016 08:28 VELASQUEZ MIX MD Dec 15, 2016 16:27
[2016-12-09] MEDS ORDERED: FUROSEMIDE 40 MG/4 ML INJECTION IV ONE (08:45)
[2016-12-09] MEDS ORDERED: POTASSIUM CHLORIDE 20 MEQ TABLET PO ONE (08:45)
--- NOTE | 2016-12-09 08:54 | ECHOF ---
ECHOCARDIOGRAM REPORT DATE OF PROCEDURE December 08, [address] Xiomara Haskins This is a two-dimensional echo with spectral Doppler, color-flow and M-mode. It was obtained in a patient with atrial fibrillation. Left atrium is dilated. Left ventricle end-diastolic dimension is normal. Left ventricular wall thickness is normal. LV systolic function is normal with ejection fraction of about 58%. Right atrium is dilated. Right ventricle is normal. Aortic root dimension is normal. Mitral annulus is calcified. Mitral valve leaflets are sclerotic with eccentric moderate mitral regurgitation. Aortic valve shows fibrocalcific changes with no stenosis. Mild aortic insufficiency is present. Tricuspid valve shows mild tricuspid regurgitation with moderate pulmonary hypertension with estimated pulmonary artery systolic pressure of 54. Pulmonary valve shows no pulmonary insufficiency. There is no pericardial effusion. IMPRESSION 1. Normal LV systolic function with ejection fraction of 58%. 2. Mitral annulus calcification with moderate mitral regurgitation. 3. Aortic sclerosis with mild aortic insufficiency. 4. Mild tricuspid regurgitation with moderate pulmonary hypertension with estimated pulmonary artery systolic pressure of 54. 5. Biatrial dilation. MTDD
[2016-12-09] MEDS: ESCITALOPRAM 10 MG TABLET PO SCH (09:13)
[2016-12-09] MEDS: MULTIVITAMIN PO SCH (09:13)
[2016-12-09] MEDS: DOCUSATE SODIUM 100 MG CAPSULE PO SCH ×2 (09:13→21:13)
[2016-12-09] MEDS: ASPIRIN *EC* 81mg TABLET PO SCH (09:13)
[2016-12-09] MEDS: CYANOCOBALAMIN (B-12) 500mcg TABLET PO SCH (09:13)
[2016-12-09] MEDS: CALCIUM CARBONATE 600 MG TABLET PO SCH (09:13)
[2016-12-09] MEDS: CLOPIDOGREL 75 MG TABLET PO SCH (09:13)
[2016-12-09] MEDS: IRON PO SCH (09:13)
[2016-12-09] MEDS: LOSARTAN 50 MG TABLET PO SCH (09:13)
[2016-12-09] MEDS: ENOXAPARIN 40 MG/0.4 ML INJECTION SQ SCH (09:14)
[2016-12-09] MEDS: [UNRECOGNIZED DRUG - OTHER] MM SCH ×2 (09:14→21:15)
[2016-12-09] MEDS: SALINE NASAL SPRAY 45ml EA NOSTRIL SCH ×2 (09:15→21:14)
[2016-12-09] MEDS: AMIODARONE 200 MG TABLET PO SCH (10:59)
--- NOTE | 2016-12-09 11:05 | NUR ---
Morning Cares/BGM Morning cares provided to pt this morning. Bath was given at edge of bed. Pt was able to participate in bath. Pt transferred into chair without difficulty and minimal assistance from staff. Pt ate 100% of breakfast, did require encouraging/reminders to keep eating. Pt drank 8 oz of thickened water. No signs of choking noted. Pills were given whole 2 at a time with thickened water as well. Morning Novolog was given at 0912 when pt was 75% through with breakfast. BGM was then check at 1030 and showed 358. BGM rechecked at 1100 and was 310. Physician paged regarding results. Pt has been voiding well in urinal/BSC having 1 moderate sized BM this morning. Will continue to monitor.
[2016-12-09] MEDS ORDERED: INSULIN ASPART 100 UNIT/ML SQ ONE (11:45)
--- NOTE | 2016-12-09 13:02 | NUR ---
TRANSFER pt transferred to medical unit at 1302, via wheelchair. vitals and weight were taken and entered. pt was assessed and made comfortable. report was taken from JAMAL Rogers.
--- NOTE | 2016-12-09 13:21 | PNPDOC ---
Subjective Date DATE: 12/09/16 TIME: 13:16 Subjective Patient seen and examined. His blood sugars have remained stable overnight. Because of this, just transferred him to the medical floor. He remains in sinus rhythm. He is somewhat pleasantly confused. He has no other complaints at this time. Objective Vital Signs Vital signs Vital Signs 12/09/16 12/09/16 12/09/16 12/09/16 02:00 03:01 04:00 04:00 Temp 98.2 Pulse 87 85 91 94 Resp B/P 121/60 96/48 159/77 Pulse Ox 96 97 96 O2 Delivery Nasal Cannula Nasal Cannula Nasal Cannula O2 Flow Rate 2.00 2.00 2.00 12/09/16 12/09/16 12/09/16 12/09/16 05:00 06:00 06:40 06:44 Pulse 86 86 88 Resp B/P 129/63 130/61 Pulse Ox 97 97 98 O2 Delivery Nasal Cannula Nasal Cannula O2 Flow Rate 2.00 2.00 12/09/16 12/09/16 12/09/16 12/09/16 06:48 07:00 08:00 09:00 Pulse 91 91 93 101 Resp 23 18 25 B/P 143/68 164/77 162/92 Pulse Ox 98 91 84 O2 Delivery Nasal Cannula Nasal Cannula Nasal Cannula O2 Flow Rate 2.00 2.00 2.00 12/09/16 12/09/16 12/09/16 12/09/16 09:46 10:00 11:00 11:03 Pulse 98 100 96 Resp 25 24 27 16 B/P 187/84 146/72 Pulse Ox 79 96 99 O2 Delivery Nasal Cannula Nasal Cannula O2 Flow Rate 2.00 2.00 12/09/16 12/09/16 12/09/16 11:03 12:00 12:11 Temp 98.0 Pulse 89 82 92 Resp 23 B/P 117/59 Pulse Ox 94 O2 Delivery Nasal Cannula O2 Flow Rate 2.00 Telemetry Rhythm: Sinus Rhythm (with PACs) Height (Feet): 6 Height (Inches): 1.00 Weight (Kilograms): 82.500 General General Appearance: Alert, Orientated x 3, Cooperative, No Acute Distress Comments He is mildly confused today. He had some difficulty recalling who I am. Eyes (Brief) Eyes: FOUND: EOMI, PERRL, NOT FOUND: scleral icterus Neck (Brief) Neck Brief: NOT FOUND: JVD, adenopathy, carotid bruits, thyromegaly Respiratory (Brief) Respiratory Brief: FOUND: clear all varela, equal bilaterally, NOT FOUND: rales , wheezes Cardiovascular (Brief) Cardiac: FOUND: pedal edema (trace), regular rate, regular rhythm (with PACs) Abdomen (Brief) Abdominal: FOUND: BS normo active x4, soft, NOT FOUND: distended, hepatosplenomegaly, tender Extremities (Brief) Extremity : Side: Bilateral Extremity Finding: FOUND: edema (trace) Lymphatic (Brief) Lymphatic Brief: NOT FOUND: adenopathy, lymphedema Musculoskeletal (Brief) Musculoskeletal Brief: FOUND: extremities move equally, NOT FOUND: deformity, spasm, tenderness Integumentary (Brief) Integumentary: FOUND: dry, pink, warm, NOT FOUND: rash Neurologic (Brief) Neurologic: FOUND: cranial 2-12 intact, motor, sensory, NOT FOUND: facial droop , ptosis Laboratory Laboratory Laboratory Tests 12/09/16 04:59 Laboratory Tests 12/09/16 04:59 Assessment & Plan Problems: (1) Hypoglycemia due to insulin Status: Acute Assessment & Plan: per report his sugars have been quite labile. He is on interesting regimen very high dose of fast acting insulin in the morning with lower doses meals, and only a small dose relatively speaking of long-acting insulin. I would very much like to hear from the locket maker as to the dosing history. For tonight we'll not give any further insulin nor any more glucose 80 minutes and monitor levels. I would anticipate resuming a long- acting dose of insulin in the morning along with a change in balance perhaps 50 % long-acting and 50% short acting divided equally between meals. however if this has failed past, been very helpful to get that history from his diabetes doctor (2) Aspiration of vomit Status: Acute Qualifiers: Encounter type: initial encounter Qualified Codes: T17.910A - Gastric contents in respiratory tract, part unspecified causing asphyxiation, initial encounter Assessment & Plan: no hypoxia, I think should followed for now, no further antibiotics were scheduled basis. Repeat evaluation in the morning (3) Type II diabetes mellitus, uncontrolled Status: Acute Qualifiers: Diabetes mellitus complication status: with hypoglycemia Diabetes mellitus computer terminal operator insulin use: unspecified care home insulin use status Assessment & Plan: no further insulin or sugar tonight, follow glucose levels tonight, seems like we should try basal/bolus at 50/50 ratios, skewed much in favor of AM humalog. 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 (6) Diabetic gastroparesis Status: Chronic (7) HTN (hypertension) Status: Chronic Qualifiers: Hypertension type: essential hypertension Qualified Codes: I10 - Essential (primary) hypertension (8) Elevated lactic acid level Status: Acute Assessment & Plan: seems out of provportion to overall presentation, I dont think septic. Aspiration event so got a dose of rocephin but not convinced in fected and not an infiltrate on 1 view CXR Assessment Impression and plan A. fib with rapid ventricular response converted to sinus rhythm on amiodarone. Check echocardiogram, TSH and consult cardiology. Obtain EKG postconversion. Diabetes mellitus with labile blood sugars-normal Levemir was resumed last night. Will see how well he eats this morning and decide on insulin dosages been. Consult Dr. Eric to see the patient tomorrow. Severe sepsis-likely secondary to aspiration pneumonia [place] aspiration pneumonia with hypoxia-continue Zosyn, recheck chest x-ray today Acute hypoxic respiratory failure-continue antibiotics, breathing treatments, supplemental oxygen, incentive spirometer Hypertension-currently with hypotension, likely related to Cardizem overnight. Hold metoprolol and losartan if blood pressure remains low. History of gastroparesis-monitor for recurrence of nausea or vomiting Coronary artery disease-continue Plavix and aspirin and statin Questionable CHF-we'll obtain echocardiogram tomorrow. Await chest x-ray. May need to hold furosemide. Possible depression and reported history of hallucinations-continue Seroquel and Lexapro History of CVA with left visual field deficit Mild elevation in creatinine and BUN this morning-recheck tomorrow. Greater than 40 minutes of critical care time spent seeing and evaluating the patient. Code Status Do Not Resuscitate Hospital Course Summary Disclaimer The hospital course summary below is not to be considered part of the above Progress Note. Hospital Course Summary 12/06/2016-Dr. Haskins-I have reviewed the history and physical Above dictated by Dr. Sams. I have independently examined the patient and taken a history. The patient was seen this morning alone in his room. He does have some memory difficulties, and this limits history taking. Chief complaint last night was vomiting, aspiration and severe hypoglycemia History of present illness: The patient is a very pleasant 89-year-old male who lives in a fdc. He states he's had diabetes for at least 50 years. Blood sugars have been labile. He states he felt terrible yesterday and was vomiting. The paramedics thought he had likely aspirated and he agrees. He states he has some cough and mild shortness of breath, but overall feels much better. He denies any nausea or vomiting now. He does feel hungry. He denies any pain anywhere including abdominal pain. He has had no recent diarrhea. He has a fairly unusual insulin regimen and is on 7 units of Levemir at at bedtime, 45 units of NovoLog with breakfast, 15 units of NovoLog with lunch, and 8 units of NovoLog with supper. He reportedly eats a large amount for breakfast and then much smaller amounts for lunch and supper. He admits that he really likes to drink apple juice at breakfast time. Past medical history, family history, social history, and review of systems are difficult to obtain secondary to the patient's memory issues Last night he was admitted and placed on D5 half-normal for hypoglycemia. He was given Rocephin 1 in the emergency room. Overnight he developed a fever and hypoxia. Zosyn was added for possible aspiration pneumonia. He is currently receiving Accu-Cheks hourly. He is on low-dose sliding scale insulin. He received 15 units of Levemir this morning and 5 units of NovoLog with breakfast (which was clear liquids). Lab today shows white count is 24.8 up from 8.4. Bands are 15%. Neutrophils 78% . Hemoglobin 10.7 down from 12.4, likely dilutional. Platelets are normal. Basic metabolic is normal other than blood sugar of 361. On admission lactate was elevated at 2.8. Last lactate was normal. Her enzymes and troponin were normal on admission. Physical exam Blood pressure is 126/57, heart rate 86, most recent temp 96.6 orally. MAXIMUM TEMPERATURE 101, O2 sat 96% on 2 L GEN-alert, no acute distress HEENT-sclera anicteric, oropharynx is moist NECK-supple, no JVD CV-regular rate and rhythm CHEST-coarse breath sounds bilaterally, no wheezing ABD-soft, nontender, nondistended with positive bowel sounds -no Morin EXT-trace edema NEURO-no focal deficits, some memory impairment SKIN-warm and dry and without rashes Chest x-ray yesterday on my read shows a possible basilar infiltrate on lateral view , no cardiomegaly or pulmonary edema. Possible left pleural effusion. Official radiology report is pending Impression and plan Labile blood sugars-we'll check blood sugars pre-and post meals for now. Discontinue every hour blood sugars. Adjust insulin as needed. Severe sepsis-likely secondary to aspiration pneumonia Possible aspiration pneumonia with hypoxia-continue Zosyn Acute hypoxic respiratory failure-continue antibiotics, breathing treatments, supplemental oxygen, incentive spirometer Hypertension continue metoprolol as tolerated. Losartan can be continued if blood pressure is not low. History of gastroparesis-monitor for recurrence of nausea or vomiting Coronary artery disease-continue Plavix and aspirin and statin Questionable CHF hold furosemide for now, may need to restart tomorrow Possible depression and reported history of hallucinations-continue Seroquel and Lexapro- 12/08/2016: Mr. Nunez appears to be progressing nicely. Mildly reservation in moving him to the medical floor is that his blood sugars to drop significantly after lunch. He remained stable overnight, I'll transfer him tomorrow. He remains in normal sinus rhythm with frequent PACs and a heart rate of 100 bpm he denies chest pain and states that his breathing is better. 12/09/2016: Patient appears improved. His blood sugars have remained stable. I have now transferred him to the medical floor. I will have him ambulate with assist. I anticipate him discharging soon. JACKSON CUMMINGS DO Dec 09, 2016 13:19
--- NOTE | 2016-12-09 15:52 | NUR ---
SHAHZAD CM UPDATED GEO WITH KBV WITH PT CURRENT STATUS. GEO AWARE TO CALL CM SHOULD NEEDS ARISE.
--- NOTE | 2016-12-09 21:00 | NUR ---
activity has been up in recliner for several hours. Now assisted to ambulate in hallway. Denies dizziness as up.
[2016-12-09] MEDS: ATORVASTATIN 40 MG TABLET PO SCH (21:13)
[2016-12-09] MEDS: INSULIN DETEMIR 100 UNIT/ML SQ SCH (21:14)
[2016-12-10] VITALS (7 sets, daily range): BP systolic 110–177; BP diastolic 64–89; PULSE 86–101; RESP 16–20; TEMP 97.1–98.9; O2SAT 92–97
[2016-12-10] MEDS: PIPERACILLIN/TAZOBACTAM 3.375 G in NORMAL SALINE 100 ML IV SCH ×2 (03:06→08:28)
--- NOTE | 2016-12-10 04:40 | NUR ---
rest sleeps between cares. Resp. unlabored at rest. Repositions self for comfort
[2016-12-10] MEDS: OMEPRAZOLE 20 MG CAPSULE PO SCH (06:07)
[2016-12-10] MEDS: ALBUTEROL/IPRATROPIUM INHAL. 2.5mg-0.5mg/3ml Neb. AEROSOL SCH ×3 (07:58→15:23)
--- NOTE | 2016-12-10 08:01 | PNPDOC ---
Subjective Date DATE: 12/10/16 TIME: 07:54 Subjective Feels okay. Not sure how hungry he is this morning. Got through past 24 hours without any further hypoglycemia. Objective Vital Signs Vital Signs Vital Signs 12/09/16 12/10/16 12/10/16 12/10/16 20:40 00:41 04:03 07:34 Temp 98.0 97.1 98.9 98.5 Pulse 93 90 94 101 Resp 18 20 20 20 B/P 141/71 110/64 157/88 177/89 Pulse Ox 97 94 93 97 O2 Delivery Nasal Cannula Nasal Cannula Nasal Cannula Nasal Cannula O2 Flow Rate 2.00 2.00 2.00 2.00 Height (Feet): 6 Height (Inches): 1.00 Weight (Kilograms): 81.300 General General Nourishment: Well Nourished, Well Developed, Apparant Age, Adult Eyes (Brief) Eyes Brief: FOUND: EOMI, PERRL Neck (Brief) Neck Brief: NOT FOUND: adenopathy, thyromegaly Respiratory (Brief) Respiratory Brief: FOUND clear all varela Cardiovascular (Brief) Cardiac Brief: FOUND: regular rate, regular rhythm Abdomen (Brief) Abdominal Brief: FOUND: BS normo active x4 Integumentary(Brief) Integumentary Brief: FOUND: dry, warm Neurologic(Brief) Neurological Brief: FOUND: tremor Psychiatric(Brief) Psychiatric Brief: FOUND: alert, normal affect, oriented Laboratory Laboratory Laboratory Tests Test 12/09/16 10:22 12/09/16 11:00 12/09/16 14:41 12/09/16 20:38 Glucometer 358mg/dL (75-110) 310mg/dL (75-110) 163mg/dL (75-110) 177mg/dL (75-110) Test 12/10/16 05:52 Glucometer 122mg/dL (75-110) Laboratory Tests Test 12/09/16 10:22 12/09/16 11:00 12/09/16 14:41 12/09/16 20:38 Glucometer 358mg/dL (75-110) 310mg/dL (75-110) 163mg/dL (75-110) 177mg/dL (75-110) Test 12/10/16 05:52 Glucometer 122mg/dL (75-110) Assessment & Plan Problems: (1) Hypoglycemia due to insulin Status: Resolved Assessment & Plan: Has been free of hypoglycemia since afternoon of 12/08/16. (2) Type II diabetes mellitus, uncontrolled Status: Chronic Qualifiers: Diabetes mellitus complication status: with hyperglycemia Diabetes mellitus retirement insulin use: with retirement use Qualified Codes: E11.65 - Type 2 diabetes mellitus with hyperglycemia; Z79.4 - USP (current) use of insulin Assessment & Plan: Has been requiring large doses of Novolog in the morning. Need to see whether he has this morning postprandial hyperglycemia controlled by current dose of Novolog. Otherwise, his sugars are stable enough for dismissal and further titration of insulin as an outpatient. SYEDA MCCRARY MD Dec 10, 2016 07:58
[2016-12-10] MEDS: FUROSEMIDE 20 MG TABLET PO SCH (08:24)
[2016-12-10] MEDS: [UNRECOGNIZED DRUG - OTHER] MM SCH (08:24)
[2016-12-10] MEDS: CYANOCOBALAMIN (B-12) 500mcg TABLET PO SCH (08:25)
[2016-12-10] MEDS: CLOPIDOGREL 75 MG TABLET PO SCH (08:25)
[2016-12-10] MEDS: IRON PO SCH (08:25)
[2016-12-10] MEDS: AMIODARONE 200 MG TABLET PO SCH (08:25)
[2016-12-10] MEDS: MULTIVITAMIN PO SCH (08:25)
[2016-12-10] MEDS: ASPIRIN *EC* 81mg TABLET PO SCH (08:25)
[2016-12-10] MEDS: LOSARTAN 50 MG TABLET PO SCH (08:25)
[2016-12-10] MEDS: ESCITALOPRAM 10 MG TABLET PO SCH (08:26)
[2016-12-10] MEDS: CALCIUM CARBONATE 600 MG TABLET PO SCH (08:26)
[2016-12-10] MEDS: DOCUSATE SODIUM 100 MG CAPSULE PO SCH (08:26)
[2016-12-10] MEDS: POTASSIUM CHLORIDE 10 MEQ TABLET PO SCH (08:27)
[2016-12-10] MEDS: INSULIN ASPART 100 UNIT/ML SQ SCH ×2 (08:27→12:58)
[2016-12-10] MEDS: ENOXAPARIN 40 MG/0.4 ML INJECTION SQ SCH (08:27)
[2016-12-10] MEDS: SALINE NASAL SPRAY 45ml EA NOSTRIL SCH (08:29)
--- NOTE | 2016-12-10 10:35 | PNPDOC ---
GEO PROCTOR INSPECTION AND TESTING SUPERVISOR 12/10/16 1035: Subjective Date DATE: 12/10/16 TIME: 10:31 Subjective Ronald is laying in bed with family at the bedside. He states he feels good today. He asks who I am and states "there are too many people to remember." He denies chest pain or pressure, denies dyspnea and is now on room air. Objective Vital Signs Vital signs Vital Signs 12/10/16 12/10/16 12/10/16 12/10/16 00:41 04:03 07:34 07:58 Temp 97.1 98.9 98.5 Pulse 90 94 101 Resp 20 20 20 16 B/P 110/64 157/88 177/89 Pulse Ox 94 93 97 94 O2 Delivery Nasal Cannula Nasal Cannula Nasal Cannula O2 Flow Rate 2.00 2.00 2.00 12/10/16 12/10/16 07:58 08:12 Pulse 93 92 Telemetry Rhythm: Sinus Rhythm (with PACs) Height (Feet): 6 Height (Inches): 1.00 Weight (Kilograms): 81.300 General Alert, Cooperative, No Acute Distress ENMT (Brief) mucosa moist Neck (Brief) NOT FOUND: JVD, carotid bruits Respiratory (Brief) clear all varela, equal bilaterally, NOT FOUND: rales, wheezes Cardiovascular (Brief) murmur (3/6), pedal edema, regular rate, regular rhythm Abdomen (Brief) BS normo active x4, soft, NOT FOUND: tender Integumentary (Brief) dry, pink, warm Psychiatric (Brief) alert, attentive, oriented Laboratory Laboratory Laboratory Tests Test 12/08/16 15:16 12/08/16 15:34 12/08/16 15:59 12/08/16 16:22 Glucometer 24mg/dL 43mg/dL 72mg/dL 118mg/dL Test 12/08/16 20:25 12/08/16 21:56 12/09/16 04:59 12/09/16 06:38 Glucometer 286mg/dL 237mg/dL 226mg/dL White Blood Count 6.5T/MM3 Red Blood Count 3.83M/MM3 Hemoglobin 10.5GM/DL Hematocrit 33.6% Mean Corpuscular Volume 87.7UM3 Mean Corpuscular Hemoglobin 27.4UUG Mean Corpuscular Hemoglobin Concent 31.3GM/DL RDW Standard Deviation 60.8FL Platelet Count 203T/MM3 Mean Platelet Volume 10.3UM3 Neutrophils % (Manual) 58.0% Band Neutrophils % 1.0% Lymphocytes % (Manual) 19.0% Monocytes % (Manual) 9.0% Eosinophils % (Manual) 11.0% Basophils % (Manual) 2.0% Absolute Neutrophils (Manual) 3.8T/MM3 Band Neutrophils # 0.1T/MM3 Lymphocytes # (Manual) 1.2T/MM3 Monocytes # (Manual) 0.6T/MM3 Eosinophils # (Manual) 0.7T/MM3 Basophils # (Manual) 0.1T/MM3 Red Cell Morphology Comment Normal Turbidity < 20 Sodium Level 143MEQ/L Potassium Level 3.6MEQ/L Chloride Level 106MEQ/L Carbon Dioxide Level 28MEQ/L Anion Gap 9MEQ/L Blood Urea Nitrogen 21.0MG/DL Creatinine 1.0MG/DL Glomerular Filtration Rate Calc 70 BUN/Creatinine Ratio 21RATIO Glucose Level 215MG/DL Calculated Osmolality 284MOSM/KG Calcium Level 8.6MG/DL Total Bilirubin 0.90MG/DL Icterus Index < 2 Aspartate Amino Transf (AST/SGOT) 45U/L Alanine Aminotransferase (ALT/SGPT) 45U/L Alkaline Phosphatase 102U/L Total Protein 5.5G/DL Albumin 2.8G/DL Globulin 2.7G/DL Albumin/Globulin Ratio 1.0RATIO Chemistry Specimen Hemolysis < 15 Test 12/09/16 10:22 12/09/16 11:00 12/09/16 14:41 12/09/16 20:38 Glucometer 358mg/dL 310mg/dL 163mg/dL 177mg/dL Test 12/10/16 05:52 12/10/16 10:00 Glucometer 122mg/dL 222mg/dL Medications Current Medications Ondansetron HCl 4 mg 4 mg Q6H PRN IV NAUSEA &/OR VOMITING Last administered on 12/07/16 01:46; Start 12/05/16 at 18:00 Ceftriaxone Sodium 1 g/Sodium Chloride 100 ml @ 100 mls/hr O ONCE IV Last administered on 12/05/16 19:34; Start 12/05/16 at 19:15; Stop 12/05/16 at 20:14; Status DC Dextrose/Sodium Chloride (D5-1/2 NS) 1,000 ml @ 70 mls/hr [id number] IV ; Start at 20:04; Stop 12/06/16 at 07:07; Status DC Ondansetron HCl (Zofran) 4 mg Q6H PRN IV NAUSEA &/OR VOMITING; Start 12/05/16 at 20:15; Stop 12/06/16 at 07:07; Status DC Senna/Docusate Sodium (Senna Plus) 1 tab BID PO Last administered on 12/05/16 22:00; Start 12/05/16 at 21:00; Stop 12/06/16 at 07:07; Status DC Albuterol (Proventil) 2.5 mg Q6H PRN AEROSOL SHORTNESS OF AIR; Start 12/05/16 at 20:15 Aspirin (Ecotrin) 81 mg DAILY PO Last administered on 12/10/16 08:25; Start at 09:00 Atorvastatin Calcium (LIPITOR 40 mg) 40 mg HS PO Last administered on 21:13; Start 12/05/16 at 22:00 Calcium Carbonate (Caltrate) 600 mg DAILY PO Last administered on 12/10/16 08: 26; Start 12/06/16 at 09:00 Clopidogrel Bisulfate (Plavix) 75 mg DAILY PO Last administered on 12/10/16 08 :25; Start 12/06/16 at 09:00 Cyanocobalamin (Vit. B-12) 1,000 mcg QAM PO Last administered on 12/10/16 08: 25; Start 12/06/16 at 09:00 Docusate Sodium (Colace) 100 mg BID PO Last administered on 12/10/16 08:26; Start 12/05/16 at 21:00 Escitalopram Oxalate (LEXAPRO 10mg) 10 mg DAILY PO Last administered on 08:26; Start 12/06/16 at 09:00 Metoprolol Tartrate (Lopressor) 100 mg BID PO Last administered on 12/10/16 08 :25; Start 12/05/16 at 21:00 Polyethylene Glycol (Miralax) 17 g DAILY PRN PO PRN ORDERS Last administered on 12/07/16 14:58; Start 12/05/16 at 20:15 Saliva Substitute (Biotene Dry Mouth Oral Rinse) 15 ml BID MM Last administered on 12/10/16 08:24; Start 12/05/16 at 21:00 Sodium Chloride (DEEP SEA Nasal [place]) 2 spray PRN EA NOSTRIL ; Start 12/05/16 at 20:15 Glucose (Glutose 15) 37.5 g PRN PO ; Start 12/05/16 at 20:15 Losartan Potassium (COZAAR 50 mg) 25 mg DAILY PO Last administered on 08:25; Start 12/06/16 at 09:00 Multivitamins/ Minerals (Theragran-H) 1 tab DAILY PO Last administered on 08:25; Start 12/06/16 at 09:00 Non-Formulary Medication 237 ml BID PO ; Start 12/05/16 at 21:00; Stop 12/06/16 at 06:13; Status DC Polyethyl Glycol/ Propylene Glycol (Systane Eye Drops) 1 drop PRN PRN BOTH EYES DRY EYES Last administered on 12/07/16 09:29; Start 12/05/16 at 20:15 Albuterol/ Ipratropium 3 ml 3 ml Q4HR PRN AEROSOL wheezing Last administered on 12/08/16 17:51; Start 12/05/16 at 20:15 Sodium Chloride (NS) 500 ml @ 500 mls/hr Q1H IV Last administered on 12/05/16 23:19; Start 12/05/16 at 23:15; Stop 12/06/16 at 01:17; Status DC Metoclopramide HCl (REGLAN Inj) 5 mg Q6HR PRN IV Last administered on 00:24; Start 12/06/16 at 00:15 Insulin Detemir 5 unit 5 unit O ONCE SQ Last administered on 12/06/16 00:26; Start 12/06/16 at 00:15; Stop 12/06/16 at 06:06; Status DC Piperacillin Sod/ Tazobactam Sod/ Sodium Chloride (Zosyn/NS) 100 ml @ 200 mls/ hr Q6HR IV Last administered on 12/10/16 08:28; Start 12/06/16 at 09:00 Haloperidol Lactate (Haldol 5 Mg/ml Inj) 1 mg Q6H PRN IV Last administered on 12/06/16 23:28; Start 12/06/16 at 03:30 Omeprazole (Prilosec) 20 mg ACB PO Last administered on 12/10/16 06:07; Start 12/06/16 at 06:30 Dextrose (D50w) 25 ml PRN PRN IV HYPOGLYCEMIA; Start 12/06/16 at 07:00 Insulin Aspart SS PRN SQ Last administered on 12/06/16 22:03; Start 12/06/16 at 07:00; Stop 12/07/16 at 07:58; Status DC Sodium Chloride (Normal Saline IV) 1,000 ml @ 75 mls/hr [id number] IV Last administered on 12/06/16 19:57; Start 12/06/16 at 08:15; Stop 12/07/16 at 06:45; Status DC Insulin Detemir (Levemir) 7 unit HS SQ Last administered on 12/09/16 21:14; Start 12/06/16 at 22:00 Diltiazem HCl 5 mg 5 mg O ONCE IV Last administered on 12/07/16 01:11; Start 12/07/16 at 01:00; Stop 12/07/16 at 06:57; Status DC Sodium Chloride 500 ml @ 250 mls/hr Q2H ONCE IV Last administered on 12/07/16 01:07; Start 12/07/16 at 01:15; Stop 12/07/16 at 06:56; Status DC Diltiazem HCl 125 mg/Sodium Chloride 125 ml @ 0 mls/hr Q0M IV ; Start 12/07/16 at 03:16; Stop 12/07/16 at 07:43; Status DC Amiodarone HCl 150 mg/Sodium Chloride 103 ml @ 600 mls/hr NOW ONCE IV Last administered on 12/07/16 04:30; Start 12/07/16 at 04:15; Stop 12/07/16 at 06:55; Status DC Amiodarone HCl 900 mg/Sodium Chloride 518 ml @ 33.33 mls/ hr [id number] IV ; Start 12/07/16 at 07:15; Stop 12/07/16 at 10:45; Status DC Amiodarone HCl/ Sodium Chloride (Cordarone/NS) 500 ml @ 16.66 mls/ hr Q24H IV Last administered on 12/08/16 05:40; Start 12/07/16 at 10:45; Stop 12/08/16 at 12:34; Status DC Albuterol/ Ipratropium (Duoneb) 3 ml RTQID AEROSOL Last administered on 07:58; Start 12/07/16 at 11:00 Enoxaparin Sodium (Lovenox) 40 mg DAILY SQ Last administered on 12/10/16 08:27 ; Start 12/07/16 at 09:00 Acetaminophen (Tylenol Regular Strength) 650 mg Q5H PRN PO DISCOMFORT Last administered on 12/08/16 21:57; Start 12/08/16 at 02:30 Amiodarone HCl (Pacerone) 200 mg DAILY PO Last administered on 12/10/16 08:25 ; Start 12/08/16 at 12:45 Furosemide (Lasix) 40 mg O ONCE IV Last administered on 12/09/16 09:13; Start 12/09/16 at 08:45; Stop 12/09/16 at 08:58; Status DC Potassium Chloride (Kdur) 20 meq O ONCE PO Last administered on 12/09/16 09: 12; Start 12/09/16 at 08:45; Stop 12/09/16 at 08:58; Status DC Insulin Aspart (Novolog) 2 unit O ONCE SQ Last administered on 12/09/16 12:06 ; Start 12/09/16 at 11:45; Stop 12/09/16 at 11:58; Status DC Assessment & Plan Problems: (1) Atrial fibrillation Status: Acute Assessment & Plan: New onset A-fib.:on 12/07 from 1:30 to 7:45 this am. converted on amiodarone into SR and remains in SR. Cont Amiodarone po Monitor closely by RN. On Plavix and ASA for CAD or stroke. On Lovenox for prophylax. Not a good candidate for anticoagulation. TSH, Mag and K+ ok. (2) Cardiac murmur Status: Chronic Assessment & Plan: 09/23/2016 echo: EF 67%. BAD. LVH. mild MR. mild AI, Aortic sclerosis vs very mild aortic stenosis with valve area 1.5 cm2. mild TR, PAP 34. (3) Chest pain Assessment & Plan: Trop negative x3. ECG shows no acute ischemia. Given this pt 's age and debility with stroke and weakness we will recommedn conservative medical management. Cont ASA, Plavix -he had a heart cath in 05/2016 at [facility], [place] by Dr. Silverman. 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 Cont atorvastatin. and BB. (4) ASCVD (arteriosclerotic cardiovascular disease) Status: Chronic Assessment & Plan: Cont ASA, Plavix, statin and BB. Unknown cardiac w/u. Unknown if he takes Plavix for CAD or stroke. (5) History of stroke with residual deficit Status: Chronic Assessment & Plan: Cont Plavix. (6) Type II diabetes mellitus, uncontrolled Status: Chronic Qualifiers: Diabetes mellitus complication status: with hyperglycemia Diabetes mellitus penitentiary insulin use: with penitentiary use Qualified Codes: E11.65 - Type 2 diabetes mellitus with hyperglycemia; Z79.4 - FDC (current) use of insulin Assessment & Plan: Dr. Eric manages as outpt . to be consulted in am. (7) HTN (hypertension) Status: Chronic Qualifiers: Hypertension type: essential hypertension Qualified Codes: I10 - Essential (primary) hypertension Assessment & Plan: Has been hypotensive. currently SBP 110's, HR 80's. Metoprolol and losartan home dose has been held on and 12/07. (8) Aspiration into airway Status: Acute Qualifiers: Encounter type: initial encounter Qualified Codes: T17.908A - Unspecified foreign body in respiratory tract, part unspecified causing other injury, initial encounter Assessment & Plan: WBC 24 -> 18 elevated. Fevers. Cough. CXR: pleural effusions and airspace disease. O2 sat ok on room air. On ABX per Dr. Haskins. (9) Sepsis Status: Acute Plan/Intensity of Service 12/07/16 New onset A-fib.:on 12/07 from 1:30 to 7:45 this am. converted on amiodarone into SR and remains in SR. Cont Amiodarone gtt tonight. consider changing to po in am. He has had 2 IV sites become slightly red due to the amiodarone. Monitor closely by RN. On Plavix and ASA for CAD or stroke. On Lovenox for prophylax. Not a good candidate for anticoagulation. TSH, Mag and K+ ok. No metoprolol - home med due to hypotension. Chest pain:Trop negative x3. ECG shows no acute ischemia. Given this pt's age and debility with stroke and weakness we will recommedn conservative medical management. Cont ASA, Plavix -he had a heart cath in 05/2016 at [facility], [place] by Dr. Silverman. 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 Cont atorvastatin. and BB. 12/08/16 Change Amiodarone from IV to PO.Not a good candidate for anticoagulation due to patient's age and vision loss making him a fall risk. 12/09/16 Lasix 40mg IV given X1 today with Potassium 20meq X1. BMP tomorrow. 12/10/16 Dr. Rainey did not see today as patient is being discharged today. VELASQUEZ RAINEY MD 12/15/16 1929: Assessment & Plan Plan/Intensity of Service I agree with the above assessment. I am involved in the formulation of the patient's plan of care. GEO PROCTOR APRN Dec 10, 2016 10:35 VELASQUEZ RAINEY MD Dec 15, 2016 16:29
--- NOTE | 2016-12-10 10:57 | NUR ---
SHAHZAD CM IN ROOM TO VISIT PT. PT DAUGHTER AT BEDSIDE. CM EXPLAINED ROLE AND PROVIDED CONTACT INFORMATION TO DAUGHTER, SHE IS AWARE TO NOTIFY CM SHOULD NEEDS ARISE.
--- NOTE | 2016-12-10 11:31 | NUR ---
ANGIEN NOTIFIED PHARMACY IV WENT BAD AND ZOSYN IS JUST FINISHING THE DOSE FROM THIS AM. PHARMACY WILL RETIME NEXT DOSE.
[2016-12-10 12:25] LABS: ANION GAP 12 MEQ/L (5-15); BUN/CREATININE RATIO 14 RATIO (6-26); CALCIUM 8.8 MG/DL (8.4-10.2); CHLORIDE 106 MEQ/L (98-107); CO2 - CARBON DIOXIDE 28 MEQ/L (22-30); CREATININE 0.9 MG/DL (0.8-1.5); GLOMERULAR FILTRATION RATE 79; GLUCOSE 116 MG/DL (75-110); POTASSIUM 3.1 MEQ/L (3.6-5); SODIUM 146 MEQ/L (134-144)
--- NOTE | 2016-12-10 13:52 | DSPDOC ---
Discharge Diagnoses Discharge Diagnoses (1) Hypoglycemia due to insulin Comments: per report his sugars have been quite labile. He is on interesting regimen very high dose of fast acting insulin in the morning with lower doses meals, and only a small dose relatively speaking of long-acting insulin. I would very much like to hear from the auxiliary engineer as to the dosing history. For tonight we'll not give any further insulin nor any more glucose 80 minutes and monitor levels. I would anticipate resuming a long-acting dose of insulin in the morning along with a change in balance perhaps 50% long-acting and 50% short acting divided equally between meals. however if this has failed past, been very helpful to get that history from his diabetes doctor (2) Aspiration of vomit Comments: no hypoxia, I think should followed for now, no further antibiotics were scheduled basis. Repeat evaluation in the morning (3) Sepsis Comments: Secondary to aspiration (4) Type II diabetes mellitus, uncontrolled Comments: no further insulin or sugar tonight, follow glucose levels tonight, seems like we should try basal/bolus at 50/50 ratios, skewed much in favor of AM humalog. 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 (7) Diabetic gastroparesis (8) HTN (hypertension) (9) Elevated lactic acid level Comments: seems out of provportion to overall presentation, I dont think septic. Aspiration event so got a dose of rocephin but not convinced in fected and not an infiltrate on 1 view CXR Hospital Course 12/06/2016-Dr. Haskins-I have reviewed the history and physical Above dictated by Dr. Sams. I have independently examined the patient and taken a history. The patient was seen this morning alone in his room. He does have some memory difficulties, and this limits history taking. Chief complaint last night was vomiting, aspiration and severe hypoglycemia History of present illness: The patient is a very pleasant 89-year-old male who lives in a custodial. He states he's had diabetes for at least 50 years. Blood sugars have been labile. He states he felt terrible yesterday and was vomiting. The paramedics thought he had likely aspirated and he agrees. He states he has some cough and mild shortness of breath, but overall feels much better. He denies any nausea or vomiting now. He does feel hungry. He denies any pain anywhere including abdominal pain. He has had no recent diarrhea. He has a fairly unusual insulin regimen and is on 7 units of Levemir at at bedtime, 45 units of NovoLog with breakfast, 15 units of NovoLog with lunch, and 8 units of NovoLog with supper. He reportedly eats a large amount for breakfast and then much smaller amounts for lunch and supper. He admits that he really likes to drink apple juice at breakfast time. Past medical history, family history, social history, and review of systems are difficult to obtain secondary to the patient's memory issues Last night he was admitted and placed on D5 half-normal for hypoglycemia. He was given Rocephin 1 in the emergency room. Overnight he developed a fever and hypoxia. Zosyn was added for possible aspiration pneumonia. He is currently receiving Accu-Cheks hourly. He is on low-dose sliding scale insulin. He received 15 units of Levemir this morning and 5 units of NovoLog with breakfast (which was clear liquids). Lab today shows white count is 24.8 up from 8.4. Bands are 15%. Neutrophils 78% . Hemoglobin 10.7 down from 12.4, likely dilutional. Platelets are normal. Basic metabolic is normal other than blood sugar of 361. On admission lactate was elevated at 2.8. Last lactate was normal. Her enzymes and troponin were normal on admission. Physical exam Blood pressure is 126/57, heart rate 86, most recent temp 96.6 orally. MAXIMUM TEMPERATURE 101, O2 sat 96% on 2 L GEN-alert, no acute distress HEENT-sclera anicteric, oropharynx is moist NECK-supple, no JVD CV-regular rate and rhythm CHEST-coarse breath sounds bilaterally, no wheezing ABD-soft, nontender, nondistended with positive bowel sounds -no Morin EXT-trace edema NEURO-no focal deficits, some memory impairment SKIN-warm and dry and without rashes Chest x-ray yesterday on my read shows a possible basilar infiltrate on lateral view , no cardiomegaly or pulmonary edema. Possible left pleural effusion. Official radiology report is pending Impression and plan Labile blood sugars-we'll check blood sugars pre-and post meals for now. Discontinue every hour blood sugars. Adjust insulin as needed. Severe sepsis-likely secondary to aspiration pneumonia Possible aspiration pneumonia with hypoxia-continue Zosyn Acute hypoxic respiratory failure-continue antibiotics, breathing treatments, supplemental oxygen, incentive spirometer Hypertension continue metoprolol as tolerated. Losartan can be continued if blood pressure is not low. History of gastroparesis-monitor for recurrence of nausea or vomiting Coronary artery disease-continue Plavix and aspirin and statin Questionable CHF hold furosemide for now, may need to restart tomorrow Possible depression and reported history of hallucinations-continue Seroquel and Lexapro- 12/08/2016: Mr. Nunez appears to be progressing nicely. Mildly reservation in moving him to the medical floor is that his blood sugars to drop significantly after lunch. He remained stable overnight, I'll transfer him tomorrow. He remains in normal sinus rhythm with frequent PACs and a heart rate of 100 bpm he denies chest pain and states that his breathing is better. 12/09/2016: Patient appears improved. His blood sugars have remained stable. I have now transferred him to the medical floor. I will have him ambulate with assist. I anticipate him discharging soon. 12/10/2016: Mr. Nunez is improved nicely. His white count is back to normal. His blood sugars seem to be better controlled. He is no longer suffering the effects of sepsis secondary to aspiration pneumonitis. His daughter was at the bedside this afternoon and I discussed discharge with her. Home Meds Reported Medications Magnesium Hydroxide (Milk of Magnesia) 400 Mg/5 Ml Oral.susp, 30 ML PO Q12H Y for CONSTIPATION 12/05/16 Polyethylene Glycol 3350 (Miralax) 17 Gm Powd.pack, 17 G PO DAILY Y for PRN ORDERS Take 17 Grams (1 capful), by mouth, once a day. 12/05/16 Albuterol Sulfate (Albuterol Sulfate) 2.5 Mg/0.5 Ml Vial.neb, 1 VIAL AEROSOL Q6H Y for SHORTNESS OF AIR 12/05/16 Quetiapine Fumarate (Quetiapine Fumarate) 25 Mg Tablet, 25 MG PO HS 12/05/16 Furosemide (Furosemide) 20 Mg Tablet, 20 MG PO BID 12/05/16 Potassium Chloride (Potassium Chloride) 10 Meq Tab.er.prt, 10 MEQ PO BID 12/05/16 Docusate Sodium (Docusate Sodium) 100 Mg Capsule, 100 MG PO BID 12/05/16 Ferrous Sulfate (Ferrous Sulfate) 325 Mg Tablet, 1 TAB PO DAILY BEST WITH FOOD. 12/05/16 Multivitamins with Iron (One Daily with Iron) 1 Each Tablet, 1 TAB PO DAILY 12/05/16 Dextrose/Dextrin/Maltose (Insta-Glucose Gel) 31 Gm Gel..gram., 1 DOSE PO PRN WITH BGM <40 12/05/16 Sodium Chloride (Saline Nasal [place]) 30 Ml [place], 1-2 SPRAY EA NOSTRIL BID 09/21/16 Propylene Glycol/Peg 400 (Systane Ultra 0.4-0.3% Eye Drp) 10 Ml Drops, 1 DROP BOTH EYES PRN Y for DRY EYES 09/21/16 Acetaminophen (Acetaminophen) 325 Mg Tablet, 650 MG PO Q4H Y for PAIN 09/21/16 Sodium Chloride (Saline Nasal [place]) 30 Ml [place], 1-2 SPRAY EA NOSTRIL PRN 09/21/16 Saliva Substitution Combo No.9 (Biotene) 1,000 Ml Mouthwash, 15 ML PO BID 09/21/16 Nut.tx.gluc.intoler,Lac-Fr,Soy (Glucerna) 237 Ml Liquid, 237 ML PO BID 09/21/16 Metoprolol Tartrate (Metoprolol Tartrate) 100 Mg Tablet, 100 MG PO BID 09/21/16 Omeprazole Magnesium (Prilosec) 10 Mg Suspdr.pkt, 20 MG PO DAILY 09/21/16 Insulin Detemir (Levemir) 100 Unit/Ml Inj, 7 UNIT SQ HS 09/21/16 Insulin Aspart (Novolog) 100 Unit/Ml Inj, 45 UNIT SQ WB 09/21/16 Insulin Aspart (Novolog) 100 Unit/Ml Inj, 8 UNIT SQ WS 09/21/16 Insulin Aspart (Novolog) 100 Unit/Ml Inj, 15 UNIT SQ WL 09/21/16 Cyanocobalamin (Vitamin B-12) (Vitamin B-12) 1,000 Mcg Tablet, 1000 MCG PO 1 MONTH 09/10/16 Losartan Potassium (Losartan Potassium) 25 Mg Tablet, 25 MG PO DAILY 09/10/16 Aspirin (Aspir 81) 81 Mg Tablet.dr, 81 MG PO DAILY 08/25/16 Calcium Carbonate (Calcium Carbonate) 600 Mg Tablet, 600 MG PO DAILY 08/25/16 Atorvastatin Calcium (Atorvastatin Calcium) 40 Mg Tablet, 40 MG PO HS 08/25/16 Clopidogrel Bisulfate (Clopidogrel) 75 Mg Tablet, 75 MG PO DAILY 08/25/16 Escitalopram Oxalate (Lexapro) 10 Mg Tablet, 10 MG PO DAILY 12/30/14 Discharge Disposition Discharge to custodial Copies To 1: JACKSON CUMMINGS DO Copies To 2: TITI MCCRARY MD Follow up Condition at time of discharge: Good Follow up Patient is to have follow-up appointment at [facility] in 2 weeks. He is also to have above outpatient follow-up appointment with Dr. Titi Mccrary in 2 weeks JACKSON CUMMINGS DO Dec 10, 2016 13:52
--- NOTE | 2016-12-10 14:51 | NUR ---
CM CM PLACED CALL TO [phone] DAUGHTER RHEA NOTIFIED OF DISCHARGE TO [facility]. Addendum: 12/10/16 at 1453 by THI CASTRO RN ENCOURAGE DAUGHTER TO CONTACT CM SHOULD NEEDS ARISE.
[2016-12-10] MEDS ORDERED: PIPERACILLIN/TAZOBACTAM 3.38 G in NORMAL SALINE 100 ML IV SCH (15:00)
--- NOTE | 2016-12-10 15:08 | PDOCECFAO ---
Admission Orders Admission Orders Admit to: [facility] Allergies: Coded Allergies: No Known Drug Allergies (Verified Allergy, Unknown, 09/21/16) Admitting Diagnosis Hypoglycemia Admitting Physician Xiomara Haskins MD Attending Physician Yonatan Cummings DO Code Status Do Not Resuscitate Rehab Potential: Fair Rehab Prognosis: Fair Diet: No Concentrated Sweets Wound/Incision Care: Not applicable May use Facility Protocol /SO: Yes May Have Flu Vaccine: Yes Group Home Certification I certify that SNF services are required to be given on an Inpatient basis because of the patients need for custodial care on a continuing basis for the condition(s) for which he/she received inpatient hospital services prior to his/her transfer to the SNF. SNF inpatient care is necessary for the following reasons Other (PT/OT) Cardiac or Respiratory Arrest Resident is Aware of Diagnosis: Yes YONATAN CUMMINGS DO Dec 10, 2016 15:08
--- NOTE | 2016-12-10 15:08 | NUR ---
SHAHZAD DC TIME OUT COMPLETE. ALL ORDERS SENT TO POST ACUTE CARE SETTING. GEO IS AWARE TO CALL SHOULD NEEDS ARISE.
--- NOTE | 2016-12-10 15:17 | NUR ---
PT note: Attempted to see pt 5 times today - pt either eating, getting midline, or declined to work with PT. Will attempt tomorrow. Call [phone] with questions.
--- NOTE | 2016-12-10 15:45 | NUR ---
REPORT REPORT CALLED TO SUN VALLEJO LPN AT [facility].
--- NOTE | 2016-12-10 16:00 | NUR ---
DISCHARGE DISCHARGE INSTRUCTIONS EXPLAINED TO PATIENT. MIDLINE DC'D. BELONGINGS PACKED AND SENT WITH PATIENT. PT WAS ON RA TODAY, DENIED SOA. DAUGHTER WAS IN TO VISIT. PT CALLED FOR NEEDS. INSULIN GIVEN ORDERED. PT UP WITH 1 ASSIST AND GAIT BELT. NO PRN'S GIVEN. PT DISCHARGED WITH [facility].
[2016-12-10] MEDS ORDERED: PIPERACILLIN/TAZOBACTAM 3.375 G in NORMAL SALINE 100 ML IV SCH (17:00)
== END 2016-12-10 16:00 | DRG 637 ==
LOC: ED 17:47 → EDHOLD 19:51 → OBSVTOIN 20:10 → MED 20:10 → CCU 12-07 01:21 → MED 12-09 13:09
PROVIDERS: ADMIT Pediatrics; ATTEND Internal Medicine
DX: E11.649 Type 2 diabetes mellitus with hypoglycemia without coma (principal); J69.0 Pneumonitis due to inhalation of food and vomit; A41.9 Sepsis, unspecified organism; I69.354 Hemiplegia and hemiparesis following cerebral infarction affecting left non-dominant side; I25.10 Atherosclerotic heart disease of native coronary artery without angina pectoris; I10 Essential (primary) hypertension; E11.43 Type 2 diabetes mellitus with diabetic autonomic (poly)neuropathy; K31.84 Gastroparesis; Z66 Do not resuscitate; T38.3X5A Adverse effect of insulin and oral hypoglycemic [antidiabetic] drugs, initial encounter; I48.91 Unspecified atrial fibrillation; R01.1 Cardiac murmur, unspecified; M19.91 Primary osteoarthritis, unspecified site; I25.2 Old myocardial infarction; Z79.4 Long term (current) use of insulin; Z79.82 Long term (current) use of aspirin; Y92.129 Unspecified place in nursing home as the place of occurrence of the external cause
CPT/HCPCS: 31720; 36415; 80048; 80053; 80069; 81003; 82010; 82948; 83605; 83690; 83735; 84100; 84145; 84443; 84484; 85007; 85025; 85027; 87040; 93005; 93306; 94640; 96361; 96365; 96375

== ENCOUNTER 2016-12-24 15:21 | Emergency (ER) | payer MEDICARE, OTHER ==
[~2016-12-24] VITALS: Ht 185.4 cm; Wt 76.4 kg
[~2016-12-24 15:21] MED LIST changes: +DEXT31GE3 PO; +DOCU-175 PO; +FERR-70 PO; -LORA0.5T86 PO; +MAGN400O4 PO; +MULT-378 PO; +POLY17PO6 PO; +POTA-12 PO; -POTA10CA37 PO; +QUET25TA73 PO
--- OUTSIDE RECORDS SUMMARY | 2016-12-24 15:23 | XMS REPORT | Continuity of Care Document ---
Author Author [facility] Organization [facility] Address Unknown Phone Unavailable Allergies Medications Problems Procedures Results Encounters ACCT No. Visit Date/Time Discharge Status Pt. Type Provider Facility Loc./Unit Complaint [id number] 08/03/2013 13:41:00 08/03/2013 23 :59:59 CLS Outpatient
--- OUTSIDE RECORDS SUMMARY | 2016-12-24 15:24 | XMS REPORT | Continuity of Care Document ---
Author Author [facility] Organization [facility] Address Unknown Phone Unavailable Support Name Relationship Address Phone RASHEED HASKINS MD Caregiver [address] [place] [id number] Unavailable RAFAEL BERNAL DO Caregiver [address] [place] [address] Unavailable JACKSON CUMMINGS DO Caregiver [address] [address] Unavailable DEYANIRA SAMS MD Caregiver [address] [place] [address] [place] [address] Unavailable RHEA FELIZ DPOA Next Of Kin [address] [phone] Insurance Providers Guarantor Ronald Rollins Address [address] [place] [address] Email DENIED 16 Payer Medicare Policy Number [id number] Subscriber's Name Ronald Rollins Relationship 18 Self Payer [employer] Policy Number [id number] Subscriber's Name Ronald Rollins Relationship 18 Self Group Number [id number] Advance Directives Directive Response Recorded Date/Time Advanced Directives Type None 12/05/16 5:47pm Ordered Resuscitation Status Do Not Resuscitate 12/05/16 11:00pm Resuscitation Documents on File No 12/05/16 8:31pm DPOA for Healthcare Only Yes 12/05/16 8:31pm Living Will No 12/05/16 8:31pm Chief Complaint and Reason for Visit Chief Complaint HYPOGLYCEMIA Reason for Visit Bilateral pleural effusion Elevated lactic acid level HTN (hypertension) History of stroke with residual deficit Hypernatremia Suspected pulmonary embolism Hypoglycemia Hypoxia mild dehydration Problems Active Problems Medical Problem Onset Date Status ASCVD (arteriosclerotic cardiovascular disease) Unknown Chronic Aspiration of vomit Unknown Acute Atrial fibrillation Unknown Acute Bilateral pleural effusion Unknown Acute Cardiac murmur Unknown Chronic Cardiac murmur, previously undiagnosed Unknown Acute Chest pain Unknown Congestive heart failure Unknown Acute Constipation Unknown Resolved Depression Unknown Chronic Diabetic gastroparesis Unknown Chronic Elevated lactic acid level Unknown Acute HTN (hypertension) Unknown Chronic History of stroke with residual deficit Unknown Chronic Hypernatremia Unknown Chronic Hypoglycemia due to insulin Unknown Resolved Inability to care for self Unknown Chronic Osteoarthritis Unknown Chronic Sepsis Unknown Suspected pulmonary embolism Unknown Acute Tachycardia Unknown Acute Type II diabetes mellitus Unknown Chronic Type II diabetes mellitus, uncontrolled Unknown Chronic Past Problems Medical Problem Onset Date Acute L1 fracture Unknown Acute anterior epistaxis Unknown Acute respiratory insufficiency Unknown Aspiration into airway Unknown Depressed Unknown Hypoglycemia Unknown Hypoxia Unknown Intractable back pain Unknown LLL pneumonia Unknown Pneumonia Unknown Sepsis Unknown memory loss Unknown mild dehydration Unknown Medications Current Home Medications Medication Dose Units Route Directions Days Qty Instructions Start Date Acetaminophen 325 Mg Tablet 650 Mg Oral Every 4 Hours as needed for Pain 09/21/16 Albuterol Sulfate 2.5 Mg/0.5 Ml Vial.neb 1 Vial Aerosol Tx. Every 6 Hours as needed for Shortness Of Air 12/05/16 Aspirin (Aspir 81) 81 Mg Tablet.dr 81 Mg Oral Daily 08/25/16 Atorvastatin Calcium 40 Mg Tablet 40 Mg Oral Bedtime 08/25/16 Calcium Carbonate 600 Mg Tablet 600 Mg Oral Daily 08/25/16 Clopidogrel Bisulfate (Clopidogrel) 75 Mg Tablet 75 Mg Oral Daily 08/25/16 Cyanocobalamin (Vitamin B-12) (Vitamin B-12) 1,000 Mcg Tablet 1,000 Mcg Oral 1 Month 09/10/16 Dextrose/Dextrin/Maltose (Insta-Glucose Gel) 31 Gm Gel..gram. 1 Dose Oral As Needed WITH BGM <40 12/05/16 Docusate Sodium 100 Mg Capsule 100 Mg Oral Twice A Day 12/05/16 Escitalopram Oxalate (Lexapro) 10 Mg Tablet 10 Mg Oral Daily 10/15 Ferrous Sulfate 325 Mg Tablet 1 Tab Oral Daily BEST WITH FOOD. 03/16 Furosemide 20 Mg Tablet 20 Mg Oral Twice A Day 12/05/16 Insulin Aspart (Novolog) 100 Unit/Ml Inj 15 Unit Sub-Q Give With Lunch 09/21/16 Insulin Aspart (Novolog) 100 Unit/Ml Inj 8 Unit Sub-Q Give With Supper 09/21/16 Insulin Aspart (Novolog) 100 Unit/Ml Inj 45 Unit Sub-Q Give With Breakfast 09/21/16 Insulin Detemir (Levemir) 100 Unit/Ml Inj 7 Unit Sub-Q Bedtime Losartan Potassium 25 Mg Tablet 25 Mg Oral Daily 09/10/16 Magnesium Hydroxide (Milk Of Magnesia) 400 Mg/5 Ml Oral.susp 30 Ml Oral Every 12 Hours as needed for Constipation 12/05/16 Metoprolol Tartrate 100 Mg Tablet 100 Mg Oral Twice A Day Multivitamins With Iron (One Daily With Iron) 1 Each Tablet 1 Tab Oral Daily 12/05/16 Nut.tx.gluc.intoler,Lac-Fr,Soy (Glucerna) 237 Ml Liquid 237 Ml Oral Twice A Day 09/21/16 Omeprazole Magnesium (Prilosec) 10 Mg Suspdr.pkt 20 Mg Oral Daily 09/21/16 Polyethylene Glycol 3350 (Miralax) 17 Gm Powd.pack 17 G Oral Daily as needed for Prn Orders Take 17 Grams (1 capful), by mouth, once a day. Potassium Chloride 10 Meq Tab.er.prt 10 Meq Oral Twice A Day 03/16 Propylene Glycol/Peg 400 (Systane Ultra 0.4-0.3% Eye Drp) 10 Ml Drops 1 Drop Both Eyes As Needed as needed for Dry Eyes 09/21/16 Quetiapine Fumarate 25 Mg Tablet 25 Mg Oral Bedtime 12/05/16 Saliva Substitution Combo No.9 (Biotene) 1,000 Ml Mouthwash 15 Ml Oral Twice A Day 09/21/16 Sodium Chloride (Saline Nasal Fernwood) 30 Ml Fernwood 1-2 Fernwood Each Nostril As Needed 09/21/16 Sodium Chloride (Saline Nasal [place]) 30 Ml Fernwood 1-2 Fernwood Each Nostril Twice A Day 09/21/16 Past Home Medications Medication Directions Ordered [...] 11/08/12 Discontinued Fluticasone Propionate (Flonase) 16 Gm Fern[place].susp, 16 Gm Nasal Daily Discontinued Hydrochlorothiazide , [...] Date/Time Onset Date Status Reason for Hospitalization hypoglycemia 12/10/2016 2:38pm Not Applicable Not Applicable Chewing Tobacco Status No 08/30/2013 4:10pm Not Applicable Not Applicable Hx Substance Use No 12/05/2016 7:50pm Not Applicable Not Applicable Hx Alcohol Use No 12/05/2016 7:50pm Not Applicable Not Applicable Has the pt used tobacco in the last 12 months No 12/05/2016 8:37pm Not Applicable Not Applicable Tobacco Usage none 12/30/2014 4:41pm Not Applicable Not Applicable Query Response Start Date Stop Date Smoking Status Former smoker Hospital Discharge Instructions Instructions: Care Instructions: Reason for Hospitalization: hypoglycemia I was in the hospital because (patient own words): "things went bad on my reading" Discharge Diet: Diabetic appropriate Discharge Activity: as tolerated. Walk daily with nursing or P.T. Follow Up Appointments: At [facility] [place] [facility] medicine in [address] Titi Mccrary in 7-10 days Pending Lab / Results: No Pending Lab Patient Instructions: Direct all diabetes questions to Dr. Titi Mccrary Wound/Incision Care: Not applicable Pain Management/Treatment: Not applicable Expected Signs/Symptoms: Fatigue Notify Physician If: Condition worsens During Business Hours:: Please call the physician's office at [phone] After Business Hours:: Please call [phone] and have the drill press operator page the physician. Condition at time of discharge: Good Plan of Care Discharge Date 12/10/16 4:00pm Disposition 04 TO [facility] Instructions/Education Provided Hypoglycemia in a Person with Diabetes (DC) Prescriptions See Medication Section Additional Instructions/Education Address all diabetes questions to Dr. Titi Mccrary Care Plan and Goals See Discharge Instructions Section Functional Status Query Response Date Recorded Mobility Status Ambulatory w/assist December 10, 2016 2:38pm Assistive Devices None December 10, 2016 2:38pm Activity Limitations Weakness Cough December 10, 2016 2:38pm Feeding Ability Assist December 10, 2016 2:38pm Toileting Ability Assist December 10, 2016 2:38pm Grooming Ability Assist December 10, 2016 2:38pm Dressing Ability Assist December 10, 2016 2:38pm Driving Ability Dependent December 10, 2016 2:38pm Housework Ability Dependent December 10, 2016 2:38pm Meal Preparation Ability Dependent December 10, 2016 2:38pm Stair Climbing Ability Assist December 10, 2016 2:38pm Ability to complete ADL's impeded by No change December 10, 2016 2:38pm Cognitive/Perceptual Impairments Impaired vision Impaired hearing Chronic confusion December 10, 2016 2:38pm Visual Assistive Devices Glasses With patient December 09, 2016 12:40am Hearing Assistive Devices Left hearing aid Right hearing aid With patient December 09, 2016 12:40am Allergies, Adverse Reactions, Alerts Allergen Type Severity Reaction Status Last Updated No Known Drug Allergies Allergy Unknown Active 09/21/16 Immunizations Query Response on File Recorded Date/Time Hx Influenza Vaccination Yes 12/05/16 8:37pm Hx Pneumococcal Vaccination Yes 12/05/16 8:37pm Hx Influenza Vaccination Yes 12/05/16 8:37pm Influenza Vaccine Hx 07/08/16 12/05/16 7:50pm Vital Signs Acute Vital Signs Vital Response Date/Time Temperature (Fahrenheit) 98.1 deg F (96.8 - 99.1) 12/10/2016 11:31am Temperature (Calculated Celsius) 36.63896 degrees C (36.0 - 37.3) 12/10/2016 11:31am Pulse Rate (adult) 86 bpm (60 - 100) 12/10/2016 11:31am Respiratory Rate 16 breaths/min (10 - 20) 12/10/2016 11:31am O2 Sat by Pulse Oximetry 95 % (90 - 100) 12/10/2016 3:23pm Oxygen Delivery Method Nasal Cannula 12/09/2016 7:38pm Oxygen Delivery Method Room Air 12/10/2016 11:31am Oxygen Flow Rate 2.00 L/min 12/10/2016 7:34am Blood Pressure 130/73 mm Hg 12/10/2016 11:31am Blood Pressure Source Automatic Cuff 12/10/2016 11:31am Height (Feet) 6 feet 12/10/2016 10:35am Height (Inches) 1.00 inches 12/10/2016 10:35am Weight (Kilograms) 81.300 kg 12/10/2016 7:35am Body Mass Index (BMI) 28.1 12/05/2016 8:22pm Results Laboratory Results Test Name Result Units Flags Reference Collection Date/Time Result Date/ Time Comments Influenza Type A Antigen NEGATIVE NEGATIVE 09/10/2016 11:42pm 2016 12:08am Negative for Flu A protein antigen. Assay sensitivity is 90%. Influenza Type B Antigen NEGATIVE NEGATIVE 09/10/2016 11:42pm 2016 12:08am Negative for Flu B protein antigen. Assay sensitivity is 90%. D-Dimer 463 NG/ML H 0-230 09/21/2016 10:57am 09/21/2016 11:09am <230 NG /ML D-DU=PRESUMPTIVE NEGATIVE FOR PE OR DVT >230 NG/ML D-DU=ADDITIONAL EVAL FOR PE OR DVT RECOMMENDED BN-Ceq-K-Type Natriuretic Peptide 674 PG/ML H 0-175 09/25/2016 4:07am 5:31am Rule in cut points: <50 years old=450; 50-75 years old=900; >75 years old=1800; When utilizing ProBNP rule-in cut points, adjustment for impaired renal function is typically not required. Iron Level 20 UG/DL L 49-181 09/25/2016 4:07am 09/26/2016 1:36am Total Iron Binding Capacity 341 UG/DL 261-497 09/25/2016 4:07am 2016 1:29am Percent Iron Saturation 6 % L 13-59 09/25/2016 4:07am 09/26/2016 1:36am Ferritin 26.8 NG/ML 18-464 09/25/2016 4:07am 09/26/2016 2:12am Vancomycin Level Trough 24.36 UG/ML *H 15-20 09/24/2016 7:10am 2016 8:22am White Blood Count 6.5 T/MM3 4.5-11.0 12/09/2016 4:59am 12/09/2016 5: 35am Red Blood Count 3.83 M/MM3 L 4.50-5.90 12/09/2016 4:59am 12/09/2016 5: 35am Hemoglobin 10.5 GM/DL L 13.5-17.5 12/09/2016 4:59am 12/09/2016 5:35am Hematocrit 33.6 % L 41-53 12/09/2016 4:59am 12/09/2016 5:35am Mean Corpuscular Volume 87.7 UM3 80-100 12/09/2016 4:59am 12/09/2016 5: 35am Mean Corpuscular Hemoglobin 27.4 UUG 26-34 12/09/2016 4:59am 2016 5:35am Mean Corpuscular Hemoglobin Concent 31.3 GM/DL 31-37 12/09/2016 4:59am 12/09/2016 5:35am RDW Standard Deviation 60.8 FL H 36.9-50.2 12/09/2016 4:59am 12/09/2016 5:35am Platelet Count 203 T/MM3 130-400 12/09/2016 4:59am 12/09/2016 5:35am Mean Platelet Volume 10.3 UM3 9.4-12.4 12/09/2016 4:59am 12/09/2016 5: 35am Neutrophils (%) (Auto) 74.9 % H 33-66 12/05/2016 6:12pm 12/05/2016 6: 42pm Lymphocytes (%) (Auto) 13.0 % L 23-45 12/05/2016 6:12pm 12/05/2016 6: 42pm Monocytes (%) (Auto) 8.7 % 0-9.0 12/05/2016 6:12p12/05/2016 6:42pm Eosinophils (%) (Auto) 2.4 % 0-4 12/05/2016 6:12p12/05/2016 6:42pm Basophils (%) (Auto) 0.6 % 0-2 12/05/2016 6:12p12/05/2016 6:42pm Immature Granulocyte % (Auto) 0.4 % 0.0-0.5 12/05/2016 6:12p2016 6:42pm Absolute Neutrophils (auto) 6.3 T/MM3 1.8-7.7 12/05/2016 6:12p2016 6:42pm Absolute Lymphocytes (auto) 1.1 T/MM3 1-4.8 12/05/2016 6:12p2016 6:42pm Absolute Monocytes (auto) 0.7 T/MM3 0-0.8 12/05/2016 6:12pm 12/05/2016 6:42pm Absolute Eosinophils (auto) 0.2 T/MM3 0-0.5 12/05/2016 6:12p2016 6:42pm Absolute Basophils (auto) 0.1 T/MM3 0-0.2 12/05/2016 6:12p12/05/2016 6:42pm Absolute Immature Granulocyte (auto 0.03 T/MM3 0.00-0.03 12/05/2016 6: 12pm 12/05/2016 6:42pm Neutrophils % (Manual) 58.0 % 33-66 12/09/2016 4:59am 12/09/2016 6: 24am Band Neutrophils % 1.0 % 0-6 12/09/2016 4:59am 12/09/2016 6:24am Lymphocytes % (Manual) 19.0 % L 23-45 12/09/2016 4:59am 12/09/2016 6: 24am Monocytes % (Manual) 9.0 % 0-9.0 12/09/2016 4:59am 12/09/2016 6:24am Eosinophils % (Manual) 11.0 % H 0-4 12/09/2016 4:59am 12/09/2016 6:24am Basophils % (Manual) 2.0 % 0-2 12/09/2016 4:59am 12/09/2016 6:24am Band Neutrophils # 0.1 T/MM3 12/09/2016 4:59am 12/09/2016 6:24am Absolute Neutrophils (Manual) 3.8 T/MM3 1.8-7.7 12/09/2016 4:59am 12/09 6:24am Lymphocytes # (Manual) 1.2 T/MM3 1-4.8 12/09/2016 4:59am 12/09/2016 6: 24am Monocytes # (Manual) 0.6 T/MM3 0-0.8 12/09/2016 4:59am 12/09/2016 6: 24am Eosinophils # (Manual) 0.7 T/MM3 H 0-0.5 12/09/2016 4:59am 12/09/2016 6: 24am Basophils # (Manual) 0.1 T/MM3 0-0.2 12/09/2016 4:59am 12/09/2016 6: 24am Red Cell Morphology Comment NORMAL 12/09/2016 4:59am 12/09/2016 6: 24am Poikilocytosis 1+ 12/08/2016 4:20am 12/08/2016 6:29am Toño Cells 1+ 12/08/2016 4:20am 12/08/2016 6:29am Ovalocytes 1+ 12/08/2016 4:20am 12/08/2016 6:29am Icterus Index < 2 0-7 12/10/2016 11:49am 12/10/2016 12:25pm Chemistry Specimen Hemolysis < 15 0-25 12/10/2016 11:49am 12/10/2016 12:25pm 0-25: Specimen Exhibited No Hemolysis. Turbidity < 20 0-20 12/10/2016 11:49am 12/10/2016 12:25pm Sodium Level 146 MEQ/L H 134-144 12/10/2016 11:49am 12/10/2016 12:25pm Potassium Level 3.1 MEQ/L L 3.6-5 12/10/2016 11:49am 12/10/2016 12:25pm Chloride Level 106 MEQ/L 98-107 12/10/2016 11:49am 12/10/2016 12:25pm Carbon Dioxide Level 28 MEQ/L 22-30 12/10/2016 11:49am 12/10/2016 12: 25pm Anion Gap 12 MEQ/L 5-15 12/10/2016 11:49am 12/10/2016 12:25pm Blood Urea Nitrogen 13.0 MG/DL 9-20 12/10/2016 11:49am 12/10/2016 12: 25pm Creatinine 0.9 MG/DL 0.8-1.5 12/10/2016 11:49am 12/10/2016 12:25pm BUN/Creatinine Ratio 14 RATIO 6-26 12/10/2016 11:4912/10/2016 12: 25pm Glomerular Filtration Rate Calc 79 12/10/2016 11:4912/10/2016 12 :25pm Glucose Level 116 MG/DL H 75-110 12/10/2016 11:49am 12/10/2016 12:25pm Calculated Osmolality 282 MOSM/KG H 261-280 12/10/2016 11:492016 12:25pm Calcium Level 8.8 MG/DL 8.4-10.2 12/10/2016 11:49am 12/10/2016 12:25pm Phosphorus Level 4.3 MG/DL 2.5-4.5 12/07/2016 6:24am 12/07/2016 6:55am Total Bilirubin 0.90 MG/DL 0.20-1.30 12/09/2016 4:5912/09/2016 5: 35am Alkaline Phosphatase 102 U/L D 38-126 12/09/2016 4:5912/09/2016 5: 47am Total Protein 5.5 G/DL L 6.3-8.2 12/09/2016 4:5912/09/2016 5:35am Albumin 2.8 G/DL L 3.5-5.0 12/09/2016 4:5912/09/2016 5:35am Globulin 2.7 G/DL 2.4-3.6 12/09/2016 4:5912/09/2016 5:35am Albumin/Globulin Ratio 1.0 RATIO L 1.1-2.2 12/09/2016 4:5912/09/2016 5:35am Aspartate Amino Transf (AST/SGOT) 45 U/L 17-59 12/09/2016 4:59am 2016 5:35am Alanine Aminotransferase (ALT/SGPT) 45 U/L 21-72 12/09/2016 4:59am 07/2017 5:35am Troponin I 0.060 ng/ml D 0-0.12 12/07/2016 6:24am 12/07/2016 7:34am Troponin values with a difference of 55% increase from orginal troponin value represent a true biological DELTA value. (%increase Calc=Orginal Troponin value, divided by subsequent Troponin value, multiplied by 100) Lipase 127 U/L 23-300 12/05/2016 6:12pm 12/05/2016 6:53pm Magnesium Level 1.8 MG/DL 1.6-2.3 12/08/2016 4:20am 12/08/2016 5:02am Plasma Lactate 1.7 MMOL/L 0.6-2.2 12/06/2016 2:15am 12/06/2016 2:29am Procalcitonin < 0.05 NG/ML 12/05/2016 6:12pm 12/05/2016 7:25pm PCT < /=0.5 ng/mL - sepsis not likely; PCT >0.5 and </=2 ng/mL - sepsis possible; PCT >2 ng/mL - sepsis likely; PCT >/=10 ng/mL - systemic inflammatory response - sepsis or septic shock highly indicated. B-Hydroxybutyrate 0.20 MMOL/L 0-0.6 12/05/2016 6:12pm 12/05/2016 6: 48pm Thyroid Stimulating Hormone (TSH) 2.25 MIU/L 0.47-4.68 12/07/2016 6: 29am 12/07/2016 9:32am Urine Collection Type CLEANCATCH-MIDSTREAM 12/06/2016 1:50pm 2016 2:06pm Urine Color YELLOW YELLOW 12/06/2016 1:50pm 12/06/2016 2:06pm Urine Turbidity CLEAR CLEAR 12/06/2016 1:50pm 12/06/2016 2:06pm Urine Specific Allen >=1.030 H 1.015-1.025 12/06/2016 1:50pm 2016 2:06pm Urine pH 5.0 5.0-8.0 12/06/2016 1:50pm 12/06/2016 2:06pm Urine Leukocyte Esterase NEGATIVE NEGATIVE 12/06/2016 1:50pm 2016 2:06pm Urine Nitrite NEGATIVE NEGATIVE 12/06/2016 1:50pm 12/06/2016 2:06pm Urine Protein NEGATIVE NEGATIVE 12/06/2016 1:50pm 12/06/2016 2:06pm Urine Glucose (UA) 1+ A NEGATIVE 12/06/2016 1:50pm 12/06/2016 2:06pm Urine Ketones 1+ A NEGATIVE 12/06/2016 1:50pm 12/06/2016 2:06pm Urine Urobilinogen 0.2 EU/DL NORMAL 12/06/2016 1:50pm 12/06/2016 2: 06pm Urine Bilirubin NEGATIVE NEGATIVE 12/06/2016 1:50pm 12/06/2016 2: 09pm --- 12/06/16 1409 --- UBILI previously reported as: 1+ A Urine Blood NEGATIVE NEGATIVE 12/06/2016 1:50pm 12/06/2016 2:06pm Urinalysis Comment MICROSCOPIC NOT IND. 12/06/2016 1:50pm 2016 2:06pm Glucometer 222 mg/dL H 75-110 12/10/2016 10:00am 12/10/2016 10:08am Microbiology Results Procedure Source Organism/Result Collection Date/Time Result Date/Time Result Status Blood Culture Peripheral/Iv Start NO GROWTH AFTER 4 DAYS 12/05/2016 6:19pm 12/09/2016 6:38pm Preliminary Name: RONALD ROLLINS Unit #: [id number] : 1925 Sex: M DISCHARGE SUMMARY Admit Date: 12/05/16 Report #: [id number] [facility] Discharge Diagnoses Discharge Diagnoses (1) Hypoglycemia due to insulin Comments: per report his sugars have been quite labile. He is on interesting regimen very high dose of fast acting insulin in the morning with lower doses meals, and only a small dose relatively speaking of long-acting insulin. I would very much like to hear from the stem maker as to the dosing history. For tonight we'll not give any further insulin nor any more glucose 80 minutes and monitor levels. I would anticipate resuming a long-acting dose of insulin in the morning along with a change in balance perhaps 50% long-acting and 50% short acting divided equally between meals. however if this has failed past, been very helpful to get that history from his diabetes doctor (2) Aspiration of vomit Comments: no hypoxia, I think should followed for now, no further antibiotics were scheduled basis. Repeat evaluation in the morning (3) Sepsis Comments: Secondary to aspiration (4) Type II diabetes mellitus, uncontrolled Comments: no further insulin or sugar tonight, follow glucose levels tonight, seems like we should try basal/bolus at 50/50 ratios, skewed much in favor of AM humalog. 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 (7) Diabetic gastroparesis (8) HTN (hypertension) (9) Elevated lactic acid level Comments: seems out of provportion to overall presentation, I dont think septic. Aspiration event so got a dose of rocephin but not convinced in fected and not an infiltrate on 1 view CXR Hospital Course 12/06/2016-Dr. Haskins-I have reviewed the history and physical Above dictated by Dr. Sams. I have independently examined the patient and taken a history. The patient was seen this morning alone in his room. He does have some memory difficulties, and this limits history taking. Chief complaint last night was vomiting, aspiration and severe hypoglycemia History of present illness: The patient is a very pleasant 89-year-old male who lives in a long-term. He states he's had diabetes for at least 50 years. Blood sugars have been labile. He states he felt terrible yesterday and was vomiting. The paramedics thought he had likely aspirated and he agrees. He states he has some cough and mild shortness of breath, but overall feels much better. He denies any nausea or vomiting now. He does feel hungry. He denies any pain anywhere including abdominal pain. He has had no recent diarrhea. He has a fairly unusual insulin regimen and is on 7 units of Levemir at at bedtime, 45 units of NovoLog with breakfast, 15 units of NovoLog with lunch, and 8 units of NovoLog with supper. He reportedly eats a large amount for breakfast and then much smaller amounts for lunch and supper. He admits that he really likes to drink apple juice at breakfast time. Past medical history, family history, social history, and review of systems are difficult to obtain secondary to the patient's memory issues Last night he was admitted and placed on D5 half-normal for hypoglycemia. He was given Rocephin 1 in the emergency room. Overnight he developed a fever and hypoxia. Zosyn was added for possible aspiration pneumonia. He is currently receiving Accu-Cheks hourly. He is on low- dose sliding scale insulin. He received 15 units of Levemir this morning and 5 units of NovoLog with breakfast (which was clear liquids). Lab today shows white count is 24.8 up from 8.4. Bands are 15%. Neutrophils 78% . Hemoglobin 10.7 down from 12.4, likely dilutional. Platelets are normal. Basic metabolic is normal other than blood sugar of 361. On admission lactate was elevated at 2.8. Last lactate was normal. Her enzymes and troponin were normal on admission. Physical exam Blood pressure is 126/57, heart rate 86, most recent temp 96.6 orally. MAXIMUM TEMPERATURE 101, O2 sat 96% on 2 L GEN-alert, no acute distress HEENT-sclera anicteric, oropharynx is moist NECK-supple, no JVD CV-regular rate and rhythm CHEST-coarse breath sounds bilaterally, no wheezing ABD-soft, nontender, nondistended with positive bowel sounds -no Morin EXT-trace edema NEURO-no focal deficits, some memory impairment SKIN-warm and dry and without rashes Chest x-ray yesterday on my read shows a possible basilar infiltrate on lateral view , no cardiomegaly or pulmonary edema. Possible left pleural effusion. Official radiology report is pending Impression and plan Labile blood sugars-we'll check blood sugars pre-and post meals for now. Discontinue every hour blood sugars. Adjust insulin as needed. Severe sepsis-likely secondary to aspiration pneumonia Possible aspiration pneumonia with hypoxia-continue Zosyn Acute hypoxic respiratory failure-continue antibiotics, breathing treatments, supplemental oxygen, incentive spirometer Hypertension continue metoprolol as tolerated. Losartan can be continued if blood pressure is not low. History of gastroparesis-monitor for recurrence of nausea or vomiting Coronary artery disease-continue Plavix and aspirin and statin Questionable CHF hold furosemide for now, may need to restart tomorrow Possible depression and reported history of hallucinations-continue Seroquel and Lexapro- 12/08/2016: Mr. Rollins appears to be progressing nicely. Mildly reservation in moving him to the medical floor is that his blood sugars to drop significantly after lunch. He remained stable overnight, I'll transfer him tomorrow. He remains in normal sinus rhythm with frequent PACs and a heart rate of 100 bpm he denies chest pain and states that his breathing is better. 12/09/2016: Patient appears improved. His blood sugars have remained stable. I have now transferred him to the medical floor. I will have him ambulate with assist. I anticipate him discharging soon. 12/10/2016: Mr. Rollins is improved nicely. His white count is back to normal. His blood sugars seem to be better controlled. He is no longer suffering the effects of sepsis secondary to aspiration pneumonitis. His daughter was at the bedside this afternoon and I discussed discharge with her. Home Meds Reported Medications Magnesium Hydroxide (Milk of Magnesia) 400 Mg/5 Ml Oral.susp, 30 ML PO Q12H Y for CONSTIPATION 12/05/16 Polyethylene Glycol 3350 (Miralax) 17 Gm Powd.pack, 17 G PO DAILY Y for PRN ORDERS Take 17 Grams (1 capful), by mouth, once a day. 12/05/16 Albuterol Sulfate (Albuterol Sulfate) 2.5 Mg/0.5 Ml Vial.neb, 1 VIAL AEROSOL Q6H Y for SHORTNESS OF AIR 12/05/16 Quetiapine Fumarate (Quetiapine Fumarate) 25 Mg Tablet, 25 MG PO HS 12/05/16 Furosemide (Furosemide) 20 Mg Tablet, 20 MG PO BID 12/05/16 Potassium Chloride (Potassium Chloride) 10 Meq Tab.er.prt, 10 MEQ PO BID 12/05/16 Docusate Sodium (Docusate Sodium) 100 Mg Capsule, 100 MG PO BID 12/05/16 Ferrous Sulfate (Ferrous Sulfate) 325 Mg Tablet, 1 TAB PO DAILY BEST WITH FOOD. 12/05/16 Multivitamins with Iron (One Daily with Iron) 1 Each Tablet, 1 TAB PO DAILY 12/05/16 Dextrose/Dextrin/Maltose (Insta-Glucose Gel) 31 Gm Gel..gram., 1 DOSE PO PRN WITH BGM <40 12/05/16 Sodium Chloride (Saline Nasal [place]) 30 Ml [place], 1-2 SPRAY EA NOSTRIL BID 09/21/16 Propylene Glycol/Peg 400 (Systane Ultra 0.4-0.3% Eye Drp) 10 Ml Drops, 1 DROP BOTH EYES PRN Y for DRY EYES 09/21/16 Acetaminophen (Acetaminophen) 325 Mg Tablet, 650 MG PO Q4H Y for PAIN 09/21/16 Sodium Chloride (Saline Nasal [place]) 30 Ml [place], 1-2 SPRAY EA NOSTRIL PRN 09/21/16 Saliva Substitution Combo No.9 (Biotene) 1,000 Ml Mouthwash, 15 ML PO BID 09/21/16 Nut.tx.gluc.intoler,Lac-Fr,Soy (Glucerna) 237 Ml Liquid, 237 ML PO BID 09/21/16 Metoprolol Tartrate (Metoprolol Tartrate) 100 Mg Tablet, 100 MG PO BID 09/21/16 Omeprazole Magnesium (Prilosec) 10 Mg Suspdr.pkt, 20 MG PO DAILY 09/21/16 Insulin Detemir (Levemir) 100 Unit/Ml Inj, 7 UNIT SQ HS 09/21/16 Insulin Aspart (Novolog) 100 Unit/Ml Inj, 45 UNIT SQ WB 09/21/16 Insulin Aspart (Novolog) 100 Unit/Ml Inj, 8 UNIT SQ WS 09/21/16 Insulin Aspart (Novolog) 100 Unit/Ml Inj, 15 UNIT SQ WL 09/21/16 Cyanocobalamin (Vitamin B-12) [...] 40 Mg Tablet, 40 MG PO HS 08/25/16 Clopidogrel Bisulfate (Clopidogrel) 75 Mg Tablet, 75 MG PO DAILY 08/25/16 Escitalopram Oxalate (Lexapro) 10 Mg Tablet, 10 MG PO DAILY 12/30/14 Discharge Disposition Discharge to long-term Copies To 1: JACKSON CUMMINGS DO Copies To 2: TITI MCCRARY MD Follow up Condition at time of discharge: Good Follow up Patient is to have follow-up appointment at [facility] in 2 weeks. He is also to have above outpatient follow-up appointment with Dr. Titi Mccrary in 2 weeks JACKSON CUMMINGS DO Dec 10, 2016 13:52 Procedures Procedure Status Date Provider(s) Routine venipuncture Completed 09/10/16 Routine venipuncture Completed [...] Completed 09/10/16 Emergency dept visit Completed 09/10/16 244261"INJECTION, LEVOFLOXACIN, 250 MG" Completed 09/10/16 [id number]% DEXTROSE/WATER (500 ML=1 UNIT) Completed 09/10/16 Encounters Encounter Location Arrival/Admit Date Discharge/Depart Date Attending Provider Discharged Inpatient [facility] 12/05/16 8:10pm 12/10/16 4:00pm RASHEED HASKINS MD Discharged Inpatient [facility] 09/21/16 12:41pm 09/25/16 2:52pm JACKSON CUMMINGS DO Departed Emergency Room [facility] 09/10/16 11:02pm 09/11/16 4: 05am JACKSON DONAHUE MD Recent Diagnosis Bilateral pleural effusion Elevated lactic acid level HTN (hypertension) History of stroke with residual deficit Hypernatremia Suspected pulmonary embolism Hypoglycemia Hypoxia mild dehydration
[2016-12-24 15:25] VITALS: Ht 185.4 cm; Wt 76.4 kg
[2016-12-24] MEDS ORDERED: ALBU2.5V7 AEROSOL (15:35)
--- OUTSIDE RECORDS SUMMARY | 2016-12-24 15:39 | XMS REPORT | Continuity of Care Document ---
Author Author [facility] Organization [facility] Address Unknown Phone Unavailable Allergies Medications Problems Procedures Results Encounters ACCT No. Visit Date/Time Discharge Status Pt. Type Provider Facility Loc./Unit Complaint [id number] 08/03/2013 13:41:00 08/03/2013 23 :59:59 CLS Outpatient
[2016-12-24] MEDS ORDERED: RIVA20TA PO (15:40)
[2016-12-24] MEDS ORDERED: DEXT31GE3 PO (15:40)
[2016-12-24] MEDS ORDERED: OMEP-122 PO (15:44)
--- NOTE | 2016-12-24 15:46 | ERPDOC ---
Departure Disposition Decision Date: Dec 24, 2016 Disposition Decision Time: 17:42 Disposition: 01 DISCHARGED HOME, SELF-CARE Impression Impression Impression: Primary Impression: Pneumonia Pneumonia type: due to unspecified organism Laterality: right Lung location : lower lobe of lung Qualified Codes: J18.1 - Lobar pneumonia, unspecified organism Severity: Moderate Condition: Stable Seen By: Mid-level only Referrals: JACKSON CUMMINGS DO (Family) Patient Instructions: Bacterial Pneumonia (ED) Problems/Meds/Labs Reviewed?: Yes Medications reviewed and manag: Yes Additional Instructions: Start Levaquin at 500mg by mouth daily for 10 days. I do want you to have him follow up with his primary care provider since he is being treated for his pneumonia again. If any fever, lethargy, or continued trouble with his blood sugars then please return to ER. Follow up care ordered?: Yes Mental Status: Alert Scripts Levofloxacin (Levaquin) 500 Mg Tablet 1 TAB PO DAILY, #10 TAB 0 Refills Prov: RHEA DOW HAZARDOUS MATERIAL SPECIALIST 12/24/16 HPI - General Medical General Chief Complaint: Diabetic Problem Stated Complaint: LOW BGM Time Seen by Provider: 15:29 Source: patient Exam Limitations: no limitations HPI - General Medical Initial Comments He is a resident at [facility]. Staff there has noted that he gets hypoglycemic around 1400 usually. They had checked his glucose and it was 34. They gave him some oral glucose and glucagon. Upon arrival EMS got a BGM of 88. They were unable to get a peripheral IV established. He had remained alert and oriented until just outside ER and then EMS did not that he was not a oriented as he had been. Upon arrival to ER BGM was 122. He does deny any pain at this time. Denies any nausea. Is answering all questions appropriately. Occurred At: home Onset: Rapid Duration: 1-3 hrs Severity: moderate Associated Symptoms: DENIES: chest pain, cough, diaphoresis, fever/chills, headaches, loss of appetite, malaise, nausea/vomiting, rash, seizure, shortness of breath, syncope, weakness Hx of Similar Symptoms: Yes Allergies: Coded Allergies: No Known Drug Allergies (Verified Allergy, Unknown, 09/21/16) Past History Patient Surgical History Hernia repair Prostatectomy Past Medical History Metabolic: diabetes, hypertension Cardiac: CAD, [place] Respiratory: pneumonia Neurological: CVA Musculoskeletal: osteoarthritis Surgical History General: hernia, other Reproductive/: prostatectomy Vaccines Hx Influenza Vaccination: Yes Hx Pneumococcal Vaccination: Yes Social History Smoking Status: Never smoker Does patient use chewing tobac: No Second Hand Exposure: No Substance Use Type: does not use Alcohol Intake: none Housing: correction Current Occupational Status: retired Advance Directives: Yes DNR Review of Systems Constitutional Constitutional: DENIES: chills, dizziness, fatigue, fever, weakness Eyes Vision: DENIES: blurring, double vision ENMT Ears: DENIES: drainage, pain Sinuses: DENIES: congestion, rhinorrhea Mouth/Throat: DENIES: scratchy throat, sore throat Cardiovascular Cardiac: DENIES: chest pain, orthopnea Rhythm/Rate: DENIES: irregular beat, palpitations Pulmonary Respiratory: DENIES: cough, dyspnea, sputum, tachypnea GI Upper Abdomen: DENIES: nausea, pain, vomiting Lower Abdomen: DENIES: constipation, diarrhea, pain Integumentary Skin: DENIES: rash Neurological General: DENIES: headache, numbness, tingling, weakness Physical Exam General General Nourishment: well nourished, well developed, appears stated age, no acute distress, adult General Body Habitus: well groomed Vitals and Pain First Documented Vital Signs Date Time Temp Pulse Resp B/P Pulse Ox O2 Delivery O2 Flow Rate FiO2 12/24/16 15:25 97.2 71 23 152/66 89 Room Air 12/24/16 15:50 3.00 Weight: Kilograms: Height (feet): 6 Height (inches): 1.00 Triage Pain Scale: RN VS reviewed by Provider: Yes Normal Exams: Neck: Full range of motion, without adenopathy, JVD, bruits or thyromegaly Chest/Resp: Clear all varela, with good airflow, and symmetry bilaterally CV: Regular rate and rhythm, without murmur or gallop, Pulses 2+ all extremities, capillary refill, <2 seconds all ext., no pedal edema noted Abdomen: Bowel sounds positive, soft, non-tender, non-distended, no hepatosplenomegaly, masses or bruits noted Lymphatic: No lymphadenopathy, or lymphedema noted Integumentary: No rashes, hives, or bruising noted Neurologic: Patient is alert, and oriented, cranial nerves, motor/sensory/ cerebellar, exams w/o gross deficits, to observation Psychiatric: Patient exhibits, appropriate attention, emotion and affect Differential Diagnoses Considering: Acute KS, Hypo/Hyperglycemia, Hypo/Hyperkalemia, Hypo/ Hypernatremia, Metabolic, Pneumonia, UTI, Other (hypoglycemia) Progress Results/Orders Orders Procedure Category Date Status Time EKG EKG 12/24/16 Taken Ua, Dip Wreflex LAB 12/24/16 Complete Microsc & Manager Programming 15:30 Cbc W/Auto LAB 12/24/16 Complete Diff-Reflex Manual Bmp - Basic Metabolic LAB 12/24/16 Complete Panel Iv Lock (Ed Only) EDM 12/24/16 Transmitted 15:30 Troponin I W LAB 12/24/16 Complete Hemolysis Index Chest, Pa & Lateral RAD 12/24/16 Taken Ceftriaxone I.V. (Er PHA 12/24/16 In Process Use Only) (Rocephin 17:45 Azithromycin PHA 12/24/16 Complete (Zithromax 500 Mg) 17:45 Levofloxacin PHA 12/24/16 Complete (Levaquin 500 Mg 17:45 Lab Results Laboratory Tests Test 12/24/16 15:27 12/24/16 16:09 12/24/16 16:37 12/24/16 17:53 Glucometer 122mg/dL 151mg/dL White Blood Count 17.3T/MM3 Red Blood Count 4.37M/MM3 Hemoglobin 12.2GM/DL Hematocrit 38.9% Mean Corpuscular Volume 89.0UM3 Mean Corpuscular Hemoglobin 27.9UUG Mean Corpuscular Hemoglobin Concent 31.4GM/DL RDW Standard Deviation 59.1FL Platelet Count 262T/MM3 Mean Platelet Volume 9.6UM3 Immature Granulocyte % (Auto) % Neutrophils (%) (Auto) % Lymphocytes (%) (Auto) % Monocytes (%) (Auto) % Eosinophils (%) (Auto) % Basophils (%) (Auto) % Absolute Immature Granulocyte (auto T/MM3 Absolute Neutrophils (auto) T/MM3 Absolute Lymphocytes (auto) T/MM3 Absolute Monocytes (auto) T/MM3 Absolute Eosinophils (auto) T/MM3 Absolute Basophils (auto) T/MM3 Neutrophils % (Manual) 89.0% Lymphocytes % (Manual) 4.0% Monocytes % (Manual) 6.0% Eosinophils % (Manual) 1.0% Absolute Neutrophils (Manual) 15.4T/MM3 Lymphocytes # (Manual) 0.7T/MM3 Monocytes # (Manual) 1.0T/MM3 Eosinophils # (Manual) 0.2T/MM3 Red Cell Morphology Comment Normal Turbidity < 20 Sodium Level 145MEQ/L Potassium Level 3.8MEQ/L Chloride Level 101MEQ/L Carbon Dioxide Level 31MEQ/L Anion Gap 13MEQ/L Blood Urea Nitrogen 16.0MG/DL Creatinine 0.8MG/DL Glomerular Filtration Rate Calc 91 BUN/Creatinine Ratio 20RATIO Glucose Level 114MG/DL Calculated Osmolality 281MOSM/KG Calcium Level 9.1MG/DL Icterus Index < 2 Troponin I < 0.012ng/ml Chemistry Specimen Hemolysis < 15 Urine Collection Type Cleancatch-midstream Urine Color Yellow Urine Turbidity Clear Urine pH 7.0 Urine Specific [place] 1.010 Urine Protein Negative Urine Glucose (UA) Negative Urine Ketones Negative Urine Blood Negative Urine Nitrite Negative Urine Bilirubin Negative Urine Urobilinogen 0.2EU/DL Urine Leukocyte Esterase Negative Urinalysis Comment Microscopic not ind. Medications Current ED Medications Ceftriaxone Sodium/Sodium Chloride (Rocephin/NS) 100 ml @ 100 mls/hr O ONCE IV Last administered on 12/24/16t 17:48; Start 12/24/16 at 17:45; Stop at 18:44 Azithromycin (ZITHROMAX 500 mg) 500 mg O ONCE PO ; Start 12/24/16 at 17:45; Stop 12/24/16 at 17:45; Status DC Levofloxacin (LEVAQUIN 500 mg tablet) 500 mg O ONCE PO ; Start 12/24/16 at 17: 45; Stop 12/24/16 at 17:46; Status DC Progress Progress Xray today does show a RLL. WBC was elevated at 17.3 with 89% neutrophils. Did given Rocephin 1G IV and po dose of Levaquin. He did have pneumonia in the last 2-3 weeks his daughters state. Vitals have been stable here in ER. Afebrile. BGM is stable at 155. BMP, troponin, and UA are all negative. Will go ahead and let him go home today. Follow up with his PCP this week for reevaluation or return to ER with any increased lethargy, fever, or continued trouble with his BGM. Xray Xray : Reason for Exam: elevated WBC Xray: CXR PA/Lat Interpretation: Abnormal (right lower lobe pneumonia) RHEA DOW HAZARDOUS MATERIAL SPECIALIST Dec 24, 2016 15:46
[2016-12-24] MEDS ORDERED: CALC-727 PO (15:49)
[2016-12-24 16:16] LABS: HCT - HEMATOCRIT 38.9 % (41-53); HGB - HEMOGLOBIN 12.2 GM/DL (13.5-17.5); MEAN CORPUSCULAR HGB 27.9 UUG (26-34); MEAN CORPUSCULAR HGB CONC(MCHC 31.4 GM/DL (31-37); MEAN PLATELET VOLUME 9.6 UM3 (9.4-12.4); RED BLOOD COUNT 4.37 M/MM3 (4.50-5.90); WBC - WHITE BLOOD COUNT 17.3 T/MM3 (4.5-11.0)
[2016-12-24 16:23] LABS: ANION GAP 13 MEQ/L (5-15); BUN/CREATININE RATIO 20 RATIO (6-26); CALCIUM 9.1 MG/DL (8.4-10.2); CHLORIDE 101 MEQ/L (98-107); CO2 - CARBON DIOXIDE 31 MEQ/L (22-30); CREATININE 0.8 MG/DL (0.8-1.5); GLOMERULAR FILTRATION RATE 91; GLUCOSE 114 MG/DL (75-110); POTASSIUM 3.8 MEQ/L (3.6-5); SODIUM 145 MEQ/L (134-144)
[2016-12-24 16:53] LABS: BLOOD, URINE NEGATIVE (NEGATIVE); COLOR,URINE YELLOW (YELLOW); LEUKOCYTE ESTERASE ,URINE NEGATIVE (NEGATIVE); NITRITE,URINE NEGATIVE (NEGATIVE); UROBILINOGEN,URINE 0.2 EU/DL (NORMAL)
[2016-12-24 16:56] LABS: EOSINOPHILS # (MANUAL) 0.2 T/MM3 (0-0.5); LYMPHOCYTES # (MANUAL) 0.7 T/MM3 (1-4.8); NEUTROPHILS #(MANUAL)-ABSOLUTE 15.4 T/MM3 (1.8-7.7); TOTAL CELLS COUNTED 100 %
--- NOTE | 2016-12-24 17:10 | NUR ---
XR Patient out to Xray
--- NOTE | 2016-12-24 17:24 | NUR ---
XR Patient returns
[2016-12-24] MEDS ORDERED: LEVO500T63 PO (17:44)
[2016-12-24] MEDS ORDERED: AZITHROMYCIN 500 MG TABLET PO ONE (17:45)
[2016-12-24] MEDS ORDERED: CEFTRIAXONE I.V. (ER USE ONLY) 1 G in NORMAL SALINE 100 ML IV ONE (17:45)
[2016-12-24] MEDS ORDERED: LEVOFLOXACIN 500 MG TABLET PO ONE (17:45)
[2016-12-24 19:25] VITALS: BP 141/65; PULSE 71; RESP 24; TEMP 97.2; O2SAT 93
--- NOTE | 2016-12-25 08:19 | DI ---
INDICATION: ITS.REASON: elevated WBC, confusion PROCEDURE: CHEST 2-VIEWS UPRIGHT (PA \T\ LAT) Encounter: Initial COMPARISON: December 09, 2016 FINDINGS: Continued airspace disease in the lower lobes which is improved on the left and stable on the right. Small bilateral pleural effusions. Upper lung varela are clear. No pneumothorax. Heart size and mediastinal contours are stable. Pulmonary vascularity is mildly congested. Impression: Continued lower lobe infiltrates with small effusions and evidence of mild edema. .
== END 2016-12-24 19:25 | disposition home or self-care (01) ==
LOC: ED 15:21
DX: E11.649 Type 2 diabetes mellitus with hypoglycemia without coma (principal); J18.1 Lobar pneumonia, unspecified organism; Z79.4 Long term (current) use of insulin
CPT/HCPCS: 71020; 80048; 81003; 82948; 84484; 85025; 93005; 96365; 99284; A9270; J0696; J7050

== ENCOUNTER → 2017-01-01 | Outpatient (CLI) | payer MEDICARE, OTHER ==
[~2017-01-01] MED LIST changes: -ALBU2.5V2 AEROSOL; +ALBU2.5V7 AEROSOL; -ASPI-557 PO; +CALC-727 PO; -CALC600T20 PO; -CLOP75TA33 PO; +LEVO500T63 PO; +OMEP-122 PO; -OMEP10SU2 PO; +RIVA20TA PO
--- NOTE | 2017-01-01 14:37 | DI ---
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 Small bilateral pleural effusions are improved. Improved aeration of the left lower lobe as well. No new infiltrates. No pneumothorax. Heart size and mediastinal contours are stable. Pulmonary vascularity is normal. Impression: 1. Improving lower lobe pneumonia. 2. Resolved pulmonary edema with decreasing pleural effusions. .
[2017-01-01 14:46] LABS: BASOPHILS # (AUTO) 0.1 T/MM3 (0-0.2); BASOPHILS % (AUTO) 0.8 % (0-2); EOSINOPHILS # (AUTO) 0.4 T/MM3 (0-0.5); EOSINOPHILS % (AUTO) 3.8 % (0-4); HCT - HEMATOCRIT 39.2 % (41-53); HGB - HEMOGLOBIN 12.2 GM/DL (13.5-17.5); IMMATURE GRANULOCYTE # (AUTO) 0.02 T/MM3 (0.00-0.03); IMMATURE GRANULOCYTE % (AUTO) 0.2 % (0.0-0.5); LYMPHOCYTES % (AUTO) 31.7 % (23-45); MEAN CORPUSCULAR HGB 27.7 UUG (26-34); MEAN CORPUSCULAR HGB CONC(MCHC 31.1 GM/DL (31-37); MEAN CORPUSCULAR VOLUME 89.1 UM3 (80-100); MEAN PLATELET VOLUME 9.8 UM3 (9.4-12.4); MONOCYTES # (AUTO) 0.8 T/MM3 (0-0.8); MONOCYTES % (AUTO) 8.3 % (0-9.0); NEUTROPHILS #(AUTO)-ABSOLUTE 5.3 T/MM3 (1.8-7.7); NEUTROPHILS % (AUTO) 55.2 % (33-66); WBC - WHITE BLOOD COUNT 9.5 T/MM3 (4.5-11.0)
[2017-01-01 15:04] LABS: ALBUMIN 3.8 G/DL (3.5-5.0); ALBUMIN/GLOBULIN RATIO 1.1 RATIO (1.1-2.2); ALKALINE PHOSPHATASE 106 U/L (38-126); ALT (SGPT) 32 U/L (21-72); ANION GAP 11 MEQ/L (5-15); AST (SGOT) 31 U/L (17-59); BUN/CREATININE RATIO 21 RATIO (6-26); CALCIUM 9.8 MG/DL (8.4-10.2); CHLORIDE 101 MEQ/L (98-107); CO2 - CARBON DIOXIDE 33 MEQ/L (22-30); GLOMERULAR FILTRATION RATE 70; GLUCOSE 91 MG/DL (75-110); POTASSIUM 3.9 MEQ/L (3.6-5); SODIUM 145 MEQ/L (134-144); TOTAL PROTEIN 7.3 G/DL (6.3-8.2)
== END ==
LOC: IMA 13:57
PROVIDERS: ATTEND Internal Medicine
DX: J18.9 Pneumonia, unspecified organism (principal); J90 Pleural effusion, not elsewhere classified; F03.90 Unspecified dementia, unspecified severity, without behavioral disturbance, psychotic disturbance, mood disturbance, and anxiety; R68.89 Other general symptoms and signs; E11.9 Type 2 diabetes mellitus without complications; I10 Essential (primary) hypertension
CPT/HCPCS: 36415; 80053; 85025